=== PATIENT | male | born 1955 | race Caucasian/White ===

== ENCOUNTER 2016-08-04 15:17 | Inpatient (IN) | payer MEDICARE, SELFPAY ==
[2016-08-04] MEDS ORDERED: Albuterol/Ipratropium Neb 3 ML NEB NEB ONE ×2 (16:15→18:11)
[2016-08-04] MEDS ORDERED: METHYLPREDNISOLONE 125 MG/2 ML VIAL IV ONE (16:15)
--- NOTE | 2016-08-04 16:18 | EDPRACDOC ---
<Cass Hughes N - Last Filed: 08/04/16 21:06> - General Information Information Source: Patient Mode Of Arrival: Wheelchair - History of Present Illness HPI: C/o SOB, cough, and chest soreness x 4 days. Hx of COPD on home O2 @2 L. Denies fever, N/V/D, change in urine or BM. Shortness of Breath: Mild Relevant History: Reports: COPD Cough: Reports: Productive, White Rhinorrhea: Reports: None Ear Symptoms: Reports: None SOB Worsens with: Reports: Exertion SOB Improves with: Reports: Nothing Associated Signs and symptoms: Reports: Cough <Zachary Malik - Last Filed: 08/05/16 00:39> - General Information Chief Complaint: Dyspnea/Resp distress Stated Complaint: SHOB HX COPD SORENESS IN [place] Home Medications: Home Medications Atorvastatin Calcium [Lipitor] 10 mg PO DAILY 01/23/13 Lisinopril [Zestril] 20 mg PO DAILY 01/23/13 Alprazolam [Xanax] 0.5 mg PO BID PRN 07/07/14 Cholecalciferol (Vitamin D3) [Vitamin D3] 1,000 units PO DAILY 07/07/14 Oxycodone Immediate Release [Oxycodone Immediate Release (OxyIR)] 10 mg PO Q8H PRN 07/23/14 Tiotropium [Spiriva Handihaler] 18 mcg INH DAILY 07/23/14 Montelukast Sodium [Singulair] 10 mg PO DAILY 06/16/16 Prednisone [Deltasone, Orasone] 10 mg PO DAILY 06/16/16 Allergies/Adverse Reactions: Allergies Allergy/AdvReac Type Severity Reaction Status Date / Time No Known Allergies Allergy Verified 08/04/16 15:50 - Treatment Prior to ED Arrival Reported 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 MECHANIC (Medication/ oxycodone 10mg @ 1300 Dose/Time) <Cass Hughes - Last Filed: 08/04/16 21:06> - Treatment Prior to ED Arrival Reported 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 MECHANIC (Medication/ oxycodone 10mg @ 1300 Dose/Time) <Zachary Malik - Last Filed: 08/05/16 00:39> ED Past Medical History - History Reviewed Yes Nurses notes reviewed and agree except as marked - Patient Medical History Neurological History: Denies: Cerebrovascular Accident, Seizures, Migraine, Dementia Cardiac History: Reports: Hypertension, Hypercholesterolemia Respiratory History: Reports: COPD, Pneumonia, Emphysema GI/ History: Reports: Gastroesophageal Reflux Musculoskeletal History: Reports: Arthritis, Osteoarthritis Psychological History: Reports: Anxiety, Substance Use Disorder. Denies: Depression Systemic History: Denies: Cancer, Anemia, Diabetes, Hyperthyroidism, Hypothyroidism, HIV, Lupus Surgical History: Reports: Hernia Surgery (x3) - Family Medical History Reports: Cancer (grandmother), Cardiac Disorders (Father). Denies: Hypertension , Diabetes, Stroke - Social Medical History Smoking Status: Light tobacco smoker (less than 5/day) Social History: Reports: Substance Use Disorder <Zachary Malik - Last Filed: 08/05/16 00:39> EDM Review of Systems - Review of Systems ROS Negative Except as Marked: Yes All systems reviewed and were negative except as marked Respiratory: Cough, Shortness of Breath, Sputum Cardiovascular: Chest Pain <Zachayr Malik - Last Filed: 08/05/16 00:39> - Physical Exam Last recorded Vital Signs: Last Vital Signs Temp 99.6 F 08/04/16 15:50 Pulse 99 08/04/16 18:13 Resp 20 08/04/16 18:13 BP 95/58 L 08/04/16 18:13 Pulse Ox 94 08/04/16 18:13 Oxygen Pulse Oxygen Saturation 94 O2 Device Nasal Cannula Oxygen Flow Rate 2 Fraction of Inspired Oxygen ( FIO2) <Cass Hughes - Last Filed: 08/04/16 21:06> - Physical Exam Constitutional: Alert, Distress (working to breath, rapid shallow breaths) Oriented to: Time, Person, Place Last recorded Vital Signs: Last Vital Signs Temp 99.6 F 08/04/16 15:50 Pulse 134 H 08/04/16 15:50 Resp 24 08/04/16 15:50 BP 150/72 08/04/16 15:50 Pulse Ox 92 08/04/16 15:56 Oxygen Pulse Oxygen Saturation 92 O2 Device Nasal Cannula Oxygen Flow Rate 2 Fraction of Inspired Oxygen ( FIO2) - HEENT Head: Normal Eye Exam: negative: Conjunctival Injection, Scleral Icterus Oropharynx: negative: Drooling TMJ: Normal Nose: No Symptoms Reported Neck: Normal - Respiratory/Cardiovascular Respiratory: Rhonchi, Tachypnea, Wheezes (bilateral, very tight), Other (pursed lips breathing) Cardiovascular: Tachycardia - GI Tenderness: Non tender - Musculoskeletal Back: Normal Extremities: Normal - Integumentary Skin: Normal - Neurologic Mood Description: Normal Thought: Coherent <Zachary Malik - Last Filed: 08/05/16 00:39> ED SOB MDM - Results Result Diagrams: 08/04/16 17:05 08/04/16 17:05 Results: WBC 8.3 xk/uL (3.8-10.8) 08/04/16 17:05 RBC 4.19 xM/uL (4.70-6.10) L 08/04/16 17:05 Hgb 12.7 g/dL (14.0-18.0) L 08/04/16 17:05 Hct 38.2 % (42-52) L 08/04/16 17:05 MCV 91 fL (80-94) 08/04/16 17:05 MCH 30.4 pg (27-32) 08/04/16 17:05 MCHC 33.3 g/dl (33-36) 08/04/16 17:05 RDW 13.5 % (11.5-14.5) 08/04/16 17:05 Plt Count 171 xk/uL (130-400) 08/04/16 17:05 MPV 8.4 fL (7.4-10.4) 08/04/16 17:05 Neut % (Auto) 63.9 % (45-76) 08/04/16 17:05 Lymph % (Auto) 18.0 % (17-44) 08/04/16 17:05 Ray % (Auto) 16.4 % (3-10) H 08/04/16 17:05 Eos % (Auto) 1.1 % (0-5) 08/04/16 17:05 Baso % (Auto) 0.6 % (0-2) 08/04/16 17:05 Absolute Neuts (auto) 5.23 xk/uL (1.7-8.2) 08/04/16 17:05 Absolute Lymphs (auto) 1.49 xk/uL (0.65-4.75) 08/04/16 17:05 PT 10.0 SEC (9.2-11.2) 08/04/16 17:05 INR 1.0 08/04/16 17:05 APTT 31.9 SEC (22-35) 08/04/16 17:05 Puncture Site Right radial 08/04/16 17:55 pH 7.380 pH UNITS (7.35-7.45) 08/04/16 17:55 pCO2 53.0 mmHg (35-45) H 08/04/16 17:55 pO2 79.0 mmHg (80-100) L 08/04/16 17:55 HCO3 31.4 MMOL/L (22-26) H 08/04/16 17:55 Total CO2 33.0 MMOL/L (23-27) H 08/04/16 17:55 Base Excess 4.9 (+/- 2) H 08/04/16 17:55 FiO2 % 3.5 lpm nc 08/04/16 17:55 Specimen Drawn By Roude 08/04/16 17:55 Sodium 138 mEq/L (137-146) 08/04/16 17:05 Potassium 4.3 mEq/L (3.5-5.1) 08/04/16 17:05 Chloride 96 mEq/L (98-107) L 08/04/16 17:05 Carbon Dioxide 36 mMOL/L (22-33) H 08/04/16 17:05 Anion Gap 10 mEq/L (8-16) 08/04/16 17:05 BUN 16 MG/DL (9-20) 08/04/16 17:05 Creatinine 0.80 MG/DL (0.66-1.25) 08/04/16 17:05 Estimated GFR (MDRD) > 60 mL/min (>=60) 08/04/16 17:05 Glucose 107 MG/DL (70-99) H 08/04/16 17:05 Calculated Osmolality 267 MOs/Kg (270-290) L 08/04/16 17:05 Lactic Acid 1.7 mEq/L (0.7-2.1) 08/04/16 17:05 Calcium 8.6 MG/DL (8.4-10.2) 08/04/16 17:05 Corrected Calcium 9.3 MG/DL (8.4-10.2) 08/04/16 17:05 Total Bilirubin 0.5 MG/DL (0.2-1.3) 08/04/16 17:05 AST 17 IU/L (17-59) 08/04/16 17:05 ALT 26 IU/L (21-72) 08/04/16 17:05 Alkaline Phosphatase 80 IU/L (38-126) 08/04/16 17:05 Troponin I < 0.01 ng/mL (<.04) 08/04/16 17:05 Jmr-[id number]-Nvxsvlcaoec Pept 167 pg/mL (0-900) 08/04/16 17:13 Total Protein 5.8 G/DL (6.3-8.2) L 08/04/16 17:05 Albumin 3.3 G/DL (3.5-5.0) L 08/04/16 17:05 Urine Color Yellow 08/04/16 17:12 Urine Clarity Clear 08/04/16 17:12 Urine pH 6.0 (5.0-8.0) 08/04/16 17:12 Ur Specific [place] 1.030 (1.003-1.035) 08/04/16 17:12 Urine Protein Neg (NEG/TRACE) 08/04/16 17:12 Urine Glucose (UA) Neg (NEGATIVE) 08/04/16 17:12 Urine Ketones Neg (NEGATIVE) 08/04/16 17:12 Urine Occult Blood Neg (NEG/TRACE) 08/04/16 17:12 Urine Nitrite Neg (NEGATIVE) 08/04/16 17:12 Urine Bilirubin Neg (NEGATIVE) 08/04/16 17:12 Urine Urobilinogen <2.0 MG/DL (0-1) 08/04/16 17:12 Ur Leukocyte Esterase Neg (NEGATIVE) 08/04/16 17:12 Urine RBC 2-5 (0-2) H 08/04/16 17:12 Urine WBC 0-2 (0-2) 08/04/16 17:12 Urine Mucus Occ (NEG/OCC) 08/04/16 17:12 Microbiology 08/04/16 17:15 Influenza Type A Antigen Screen - Final Nasal Washing/Aspirate Or Swab NEGATIVE Please note: A NEGATIVE result does not exclude an influenza virus infection. It is a presumptive result and, if required, confirmation should be done using either a virus culture or an FDA-cleared influenza A&B molecular assay. ("NORMAL" value = "NEGATIVE".) Influenza Type B Antigen Screen - Final NEGATIVE Please note: A NEGATIVE result does not exclude an influenza virus infection. It is a presumptive result and, if required, confirmation should be done using either a virus culture or an FDA-cleared influenza A&B molecular assay. ("NORMAL" value = "NEGATIVE".) Lab Results 08/04/16 08/04/16 08/04/16 17:55 17:13 17:12 WBC RBC Hgb Hct MCV MCH MCHC RDW Plt Count MPV Neut % (Auto) Lymph % (Auto) Ray % (Auto) Eos % (Auto) Baso % (Auto) Absolute Neuts (auto) Absolute Lymphs (auto) PT INR APTT Puncture Site Right radial pH 7.380 pCO2 53.0 H pO2 79.0 L HCO3 31.4 H Total CO2 33.0 H Base Excess 4.9 H FiO2 % 3.5 lpm nc Specimen Drawn By Roude Sodium Potassium Chloride Carbon Dioxide Anion Gap BUN Creatinine Estimated GFR (MDRD) Glucose Calculated Osmolality Lactic Acid Calcium Corrected Calcium Total Bilirubin AST ALT Alkaline Phosphatase Troponin I Jak-[id number]-Qlztqebiyfa Pept 167 Total Protein Albumin Urine Color Yellow Urine Clarity Clear Urine pH 6.0 Ur Specific [place] 1.030 Urine Protein Neg Urine Glucose (UA) Neg Urine Ketones Neg Urine Occult Blood Neg Urine Nitrite Neg Urine Bilirubin Neg Urine Urobilinogen <2.0 Ur Leukocyte Esterase Neg Urine RBC 2-5 H Urine WBC 0-2 Urine Mucus Occ 08/04/16 08/04/16 08/04/16 17:05 17:05 17:05 WBC RBC Hgb Hct MCV MCH MCHC RDW Plt Count MPV Neut % (Auto) Lymph % (Auto) Ray % (Auto) Eos % (Auto) Baso % (Auto) Absolute Neuts (auto) Absolute Lymphs (auto) PT 10.0 INR 1.0 APTT 31.9 Puncture Site pH pCO2 pO2 HCO3 Total CO2 Base Excess FiO2 % Specimen Drawn By Sodium Potassium Chloride Carbon Dioxide Anion Gap BUN Creatinine Estimated GFR (MDRD) Glucose Calculated Osmolality Lactic Acid 1.7 Calcium Corrected Calcium Total Bilirubin AST ALT Alkaline Phosphatase Troponin I < 0.01 Rkl-P-Fniveplrufk Pept Total Protein Albumin Urine Color Urine Clarity Urine pH Ur Specific [place] Urine Protein Urine Glucose (UA) Urine Ketones Urine Occult Blood Urine Nitrite Urine Bilirubin Urine Urobilinogen Ur Leukocyte Esterase Urine RBC Urine WBC Urine Mucus 08/04/16 08/04/16 17:05 17:05 WBC 8.3 RBC 4.19 L Hgb 12.7 L Hct 38.2 L MCV 91 MCH 30.4 MCHC 33.3 RDW 13.5 Plt Count 171 MPV 8.4 Neut % (Auto) 63.9 Lymph % (Auto) 18.0 Ray % (Auto) 16.4 H Eos % (Auto) 1.1 Baso % (Auto) 0.6 Absolute Neuts (auto) 5.23 Absolute Lymphs (auto) 1.49 PT INR APTT Puncture Site pH pCO2 pO2 HCO3 Total CO2 Base Excess FiO2 % Specimen Drawn By Sodium 138 Potassium 4.3 Chloride 96 L Carbon Dioxide 36 H Anion Gap 10 BUN 16 Creatinine 0.80 Estimated GFR (MDRD) > 60 Glucose 107 H Calculated Osmolality 267 L Lactic Acid Calcium 8.6 Corrected Calcium 9.3 Total Bilirubin 0.5 AST 17 ALT 26 Alkaline Phosphatase 80 Troponin I Lpy-A-Xgahsjdojzl Pept Total Protein 5.8 L Albumin 3.3 L Urine Color Urine Clarity Urine pH Ur Specific [place] Urine Protein Urine Glucose (UA) Urine Ketones Urine Occult Blood Urine Nitrite Urine Bilirubin Urine Urobilinogen Ur Leukocyte Esterase Urine RBC Urine WBC Urine Mucus - Diagnostic Imaging Chest Diagnostic Imaging Comments: Patient Name: ONEIDA BANDA LOC: ED : 1955 AGE: 60 Order Date:08/04/16 Date of Service: Report # [id number] Ord Physician: Cass Hughes MD Exam # [id number] Emergency Physician: Cass Hughes MD Exam(s): [id number] CT/CT ANGIO CHEST CLINICAL DATA: 60-year-old male with chest pain and shortness of breath EXAM: CT ANGIOGRAPHY CHEST WITH CONTRAST TECHNIQUE: Multidetector CT imaging of the chest was performed using the standard protocol during bolus administration of intravenous contrast. Multiplanar CT image reconstructions and MIPs were obtained to evaluate the vascular anatomy. CONTRAST: 100 mL Isovue 370 administered intravenously COMPARISON: Prior chest x-ray 08/04/2016; prior chest CTs 03/09/2015 FINDINGS: Mediastinum: Unremarkable CT appearance of the thyroid gland. No suspicious mediastinal or hilar adenopathy. No soft tissue mediastinal mass. Small hiatal hernia. Heart/Vascular: Adequate opacification of the pulmonary arteries to proximal subsegmental level. No evidence of central filling defect to suggest acute pulmonary embolus. 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 Atherosclerotic plaque noted in the transverse aorta. No aneurysm or dissection. Calcifications also noted along the course of the coronary arteries. The heart is within normal limits for size. No pericardial effusion. Lungs/Pleura: No evidence of pleural effusion. Advanced centrilobular emphysema. No focal airspace consolidation, pleural effusion, pneumothorax or pulmonary edema. Diffuse mild bronchial wall thickening. Scattered calcified granulomas. Bones/Soft Tissues: No acute fracture or aggressive appearing lytic or blastic osseous lesion. Upper Abdomen: Visualized upper abdominal organs are unremarkable. Review of the MIP images confirms the above findings. IMPRESSION: 1. Negative for acute pulmonary embolus, pneumonia or other acute cardiopulmonary process. 2. Advanced centrilobular emphysema and chronic bronchitic changes. 3. Scattered calcified granulomas. 4. 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 5. Small hiatal hernia. Electronically Signed By: Andrea Smith M.D. On: 08/04/2016 20:31 Electronically Signed By: Andrea Smith MD Electronically Signed Date/Time: Dictate Date/Time: 08/04/162025 Technologist: Elvira Olvera Transcribed By: Judson Transcribed Date/Time: 08/04/162030 <Cass Hughes - Last Filed: 08/04/16 21:06> - Re-evaluation Re-evaluation 1 Re-evaluation Time: 19:26 (pt VSS. couldnt lie down for CTA, unsure whether from back pain or SOB. ) - Results Result Diagrams: 08/04/16 17:05 08/04/16 17:05 - EKG EKG #1 EKG Time: 16:37 -: Yes EKG interpreted by me Rate: bpm: 114 [place]: RAD Rhythm: ST Block: None Hypertrophy: None ST: Normal - Diagnostic Imaging Chest Image interpreted by: Radiologist Diagnostic Imaging Comments: EXAM: CHEST 2 VIEW COMPARISON: 06/16/2016 FINDINGS: COPD. Pulmonary hyperinflation. Calcified granulomata bilaterally are chronic Negative for pneumonia. Negative for heart failure or mass. No pleural effusion IMPRESSION: COPD without acute cardiopulmonary abnormality. Electronically Signed By: Leonardo Barrientos M.D. On: 08/04/2016 17:10 Other Image interpreted by: Radiologist Diagnostic Imaging Comments: EXAM: CT ANGIOGRAPHY CHEST WITH CONTRAST TECHNIQUE: Multidetector CT imaging of the chest was performed using the standard protocol during bolus administration of intravenous contrast. Multiplanar CT image reconstructions and MIPs were obtained to evaluate the vascular anatomy. CONTRAST: 100 mL Isovue 370 administered intravenously COMPARISON: Prior chest x-ray 08/04/2016; prior chest CTs 03/09/2015 FINDINGS: Mediastinum: Unremarkable CT appearance of the thyroid gland. No suspicious mediastinal or hilar adenopathy. No soft tissue mediastinal mass. Small hiatal hernia. Heart/Vascular: Adequate opacification of the pulmonary arteries to proximal subsegmental level. No evidence of central filling defect to suggest acute pulmonary embolus. 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 Atherosclerotic plaque noted in the transverse aorta. No aneurysm or dissection. Calcifications also noted along the course of the coronary arteries. The heart is within normal limits for size. No pericardial effusion. Lungs/Pleura: No evidence of pleural effusion. Advanced centrilobular emphysema. No focal airspace consolidation, pleural effusion, pneumothorax or pulmonary edema. Diffuse mild bronchial wall thickening. Scattered calcified granulomas. Bones/Soft Tissues: No acute fracture or aggressive appearing lytic or blastic osseous lesion. Upper Abdomen: Visualized upper abdominal organs are unremarkable. Review of the MIP images confirms the above findings. IMPRESSION: 1. Negative for acute pulmonary embolus, pneumonia or other acute cardiopulmonary process. 2. Advanced centrilobular emphysema and chronic bronchitic changes. 3. Scattered calcified granulomas. 4. 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 5. Small hiatal hernia. Electronically Signed By: Andrea Smith M.D. On: 08/04/2016 20:31 - Additional Information Additional Information: Pt had 1 episode of rapid BP drop to SBP 84, managed with 2 L NS. Pt had repeat rapid sudden O2 drops with rapid labored pursed lip breathing where sats dropped from 93-94% to 87-88%. Pt on home O2 @ 2L, and had to be increased to 3.5L to maintain O2 above 90%. Pt given 2 duonebs, and could not lie down to do CTA without a third. Pt had labored breathing with any exertion. Pt has repeated coughing with sputum production. States that this had been going on for 4 days, that he couldn't even get out of bed. Pt has to sit up, cannot angle bed back due to increased work of breathing. <Zachary Malik - Last Filed: 08/05/16 00:39> ED Critical Care Note - Critical Care Note Total Time (mins): 35 Comments: Due to the presence of and / or the risk of deterioration, my attendance to this patient required critical care time, including assessment/reassessment, documentation, ordering and interpreting ancillary studies, discussion with ED staff and consultants,patient and family, and excludes time spent on separately billable procedures. <Cass Hughes - Last Filed: 08/04/16 21:06> - Departure Yes I personally saw and evaluated the patient. Education/Counseling Given To: Patient Education/Counseling Given Regarding: Diagnosis, Treatment, Prognosis Decision to Admit Time: 21:10 Decision to admit date: 08/04/16 Decision to admit: from ED - Physician Consulted Hospitalist Time Called: 21:10 Provider Called: Jacquelin Ding Time Occupational Health Specialist Returned Call: 21:10 <Cass Hughes - Last Filed: 08/04/16 21:06> - Departure Disposition: Admit IP To This Hospital <Zachary Malik - Last Filed: 08/05/16 00:39> - Departure Condition: Stable Final Diagnosis: COPD (chronic obstructive pulmonary disease) with acute bronchitis, Acute respiratory failure with hypoxia and hypercarbia
[2016-08-04] MEDS ORDERED: NS 1,000 ML IV ONE ×2 (17:07→18:32)
--- NOTE | 2016-08-04 17:13 | DIRPT ---
CLINICAL DATA: Short of breath EXAM: CHEST 2 VIEW COMPARISON: 06/16/2016 FINDINGS: COPD. Pulmonary hyperinflation. Calcified granulomata bilaterally are chronic Negative for pneumonia. Negative for heart failure or mass. No pleural effusion IMPRESSION: COPD without acute cardiopulmonary abnormality. Electronically Signed By: Leonardo Barrientos M.D. On: 08/04/2016 17:10
[2016-08-04 17:32] LABS: AUTOMATED BASOPHIL 0.6 % (0-2); AUTOMATED EOSINOPHIL 1.1 % (0-5); AUTOMATED MONOCYTE 16.4 % (3-10); AUTOMATED NEUTROPHIL 63.9 % (45-76); BLOOD UREA NITROGEN 16 MG/DL (9-20); CALC CORRECTED 9.3 MG/DL (8.4-10.2); CALCIUM 8.6 MG/DL (8.4-10.2); CALCULATED OSMOLALITY 267 MOs/Kg (270-290); CHLORIDE 96 mEq/L (98-107); GLUCOSE 107 MG/DL (70-99); MPV 8.4 fL (7.4-10.4); SODIUM LEVEL 138 mEq/L (137-146); TOTAL PROTEIN 5.8 G/DL (6.3-8.2)
[2016-08-04 17:35] LABS: LEUKOCYTES/URINE NEG (NEGATIVE); NITRITE/URINE NEG (NEGATIVE); URINE OCCULT BLOOD NEG (NEG/TRACE); WBC/URINE 0-2 (0-2)
[2016-08-04 17:38] LABS: PARTIAL THROMB. TIME 31.9 SEC (22-35)
[2016-08-04 18:02] LABS: ABG Draw Site Right Radial; ALLEN'S TEST PASS; BEb 4.9 (+/- 2)
[2016-08-04] MEDS ORDERED: OXYCODONE HCL 5 MG TABLET PO ONE ×2 (18:50→19:23)
[2016-08-04] MEDS ORDERED: Pharmacy Review for Metformin - IV Contrast Given SCH (19:00)
[2016-08-04] MEDS ORDERED: ALBUTEROL 0.083% 3 ML NEB NEB ONE (19:13)
--- NOTE | 2016-08-04 20:33 | DIRPT ---
CLINICAL DATA: 60-year-old male with chest pain and shortness of breath EXAM: CT ANGIOGRAPHY CHEST WITH CONTRAST TECHNIQUE: Multidetector CT imaging of the chest was performed using the standard protocol during bolus administration of intravenous contrast. Multiplanar CT image reconstructions and MIPs were obtained to evaluate the vascular anatomy. CONTRAST: 100 mL Isovue 370 administered intravenously COMPARISON: Prior chest x-ray 08/04/2016; prior chest CTs 03/09/2015 FINDINGS: Mediastinum: Unremarkable CT appearance of the thyroid gland. No suspicious mediastinal or hilar adenopathy. No soft tissue mediastinal mass. Small hiatal hernia. Heart/Vascular: Adequate opacification of the pulmonary arteries to proximal subsegmental level. No evidence of central filling defect to suggest acute pulmonary embolus. 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 Atherosclerotic plaque noted in the transverse aorta. No aneurysm or dissection. Calcifications also noted along the course of the coronary arteries. The heart is within normal limits for size. No pericardial effusion. Lungs/Pleura: No evidence of pleural effusion. Advanced centrilobular emphysema. No focal airspace consolidation, pleural effusion, pneumothorax or pulmonary edema. Diffuse mild bronchial wall thickening. Scattered calcified granulomas. Bones/Soft Tissues: No acute fracture or aggressive appearing lytic or blastic osseous lesion. Upper Abdomen: Visualized upper abdominal organs are unremarkable. Review of the MIP images confirms the above findings. IMPRESSION: 1. Negative for acute pulmonary embolus, pneumonia or other acute cardiopulmonary process. 2. Advanced centrilobular emphysema and chronic bronchitic changes. 3. Scattered calcified granulomas. 4. 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 5. Small hiatal hernia. Electronically Signed By: Andrea Smith M.D. On: 08/04/2016 20:31
[2016-08-04] MEDS ORDERED: TEMAZEPAM 15 MG CAP PO PRN (21:22)
[2016-08-04] MEDS ORDERED: SIMETHICONE 80 MG TAB PO PRN (21:22)
[2016-08-04] MEDS ORDERED: ONDANSETRON HCL 4 MG/2 ML VIAL IV PRN (21:22)
[2016-08-04] MEDS ORDERED: ACETAMINOPHEN 650 MG SUPP PR PRN (21:22)
[2016-08-04] MEDS ORDERED: DOCUSATE-SENNA CONCENTRATE TAB PO PRN (21:22)
[2016-08-04] MEDS ORDERED: SODIUM CHLORIDE 0.9% 3 ML FLUSH FLUSH PRN (21:27)
[2016-08-04] MEDS: NS 1,000 ML IV SCH (22:55)
[2016-08-04] MEDS: NICOTINE 21 MG PATCH TOP SCH (22:56)
[2016-08-05] MEDS ORDERED: Vaccine Screening Complete SCH (01:00)
[2016-08-05] MEDS: Albuterol/Ipratropium Neb 3 ML NEB NEB SCH ×4 (01:07→19:16)
[2016-08-05] MEDS: SODIUM CHLORIDE 0.9% 3 ML FLUSH FLUSH SCH ×2 (04:03→17:24)
[2016-08-05] MEDS: OXYCODONE HCL 5 MG TABLET PO PRN ×3 (05:39→22:04)
[2016-08-05 07:15] LABS: MPV 8.2 fL (7.4-10.4)
[2016-08-05 07:34] LABS: BLOOD UREA NITROGEN 15 MG/DL (9-20); CALCIUM 8.1 MG/DL (8.4-10.2); CALCULATED OSMOLALITY 275 MOs/Kg (270-290); CHLORIDE 103 mEq/L (98-107); GLUCOSE 204 MG/DL (70-99); SODIUM LEVEL 139 mEq/L (137-146)
--- NOTE | 2016-08-05 08:29 | HISTPHYS ---
History and Physical - Chief Complaint short of breath - History of Present Illness Mr Chris Varela is a 60 year old disabled man who has severe emphysema. He quit smoking about two months ago, but previously had smoked for about 42 years. He presents tonight to the ED with progressively worsening shortness of breath. He wears oxygen at 2L/min by nasal cannula at home, but was hypoxic upon arrival to the ED. - Medical History Cardiac History: Reports: Hypertension, Hypercholesterolemia Respiratory History: Reports: COPD, Pneumonia, Emphysema GI/ History: Reports: Gastroesophageal Reflux Musculoskeletal History: Reports: Arthritis, Osteoarthritis Systemic History: Denies: Cancer, Anemia, Diabetes, Hyperthyroidism, Hypothyroidism, HIV, Lupus Neurological History: Denies: Cerebrovascular Accident, Seizures, Migraine, Dementia Psychological History: Reports: Anxiety, Substance Use Disorder. Denies: Depression - Surgical History Reports: Hernia Surgery (x3) - Medictions/Allergies Allergies No Known Allergies Allergy (Verified 08/04/16 15:50) Home Medications Atorvastatin Calcium [Lipitor] 10 mg PO DAILY 01/23/13 Lisinopril [Zestril] 20 mg PO DAILY 01/23/13 Alprazolam [Xanax] 0.5 mg PO BID PRN 07/07/14 Cholecalciferol (Vitamin D3) [Vitamin D3] 1,000 units PO DAILY 07/07/14 Oxycodone Immediate Release [Oxycodone Immediate Release (OxyIR)] 10 mg PO Q8H PRN 07/23/14 Tiotropium [Spiriva Handihaler] 18 mcg INH DAILY 07/23/14 Montelukast Sodium [Singulair] 10 mg PO DAILY 06/16/16 Prednisone [Deltasone, Orasone] 10 mg PO DAILY 06/16/16 - Family History Reports: Cancer (grandmother), Cardiac Disorders (Father). Denies: Hypertension , Diabetes, Stroke - Social History Lives: Alone Smoking Status: Former smoker Social History: Denies: Alcohol Use, Substance Use Disorder - Review of Systems Constitutional: Chills, Fever, Fatigue, Weakness Eyes: No Symptoms Reported Ears: Hearing Loss Nose: No Symptoms Reported Mouth: Dry Mouth, Poor Dentition Throat/Neck: No Symptoms Reported Respiratory: Cough, Shortness of Breath, Wheezing, Bronchitis, Dyspnea Cardiovascular: Chest Pain, Orthopnea, Palpitations Gastrointestinal: Nausea, Constipation, Appetite Changes (decreased) Genitourinary: No Symptoms Reported Neurological: Dizziness, Gait Difficulty, Headache, Weakness Musculoskeletal:: Chronic low back pain, Osteoarthritis, Weakness, Joint Pain Integumentary: No Symptoms Reported Allergic/Immunologic: No Symptoms Reported Hematologic: No Symptoms Reported Endocrine: No Symptoms Reported Psychiatric: Anxiety, Depression - Physical Exam Vital Signs: Initial Vitals Temperature 99.6 F 08/04/16 15:50 Pulse Rate 134 H 08/04/16 15:50 Respiratory Rate 24 08/04/16 15:50 Blood Pressure 150/72 08/04/16 15:50 Pulse Oxygen Saturation 83 L 08/04/16 15:50 Constitutional: No apparent distress, Alert, Distress (respiratory distress), Restless, Other (chronically ill appearing) - HEENT Head: Normal Eye: Normal (PERRL; EOMI) Oropharynx: Normal Tympanic Membrane: Normal ENT EAC: Normal TMJ: Normal Nose: No Symptoms Reported. negative: Bleeding, Congestion, Discharge, Deformity Respiratory: Diminished, Retractions, Wheezes. negative: Rales, Rhonchi Cardiovascular: Normal (REGULAR RHYTHM AND RATE, NO MURMUR) - GI Auscultation: Normal Palpation: Normal. negative: Enlarged liver, Enlarged spleen, Fluid Wave, Mass Tenderness: Non tender Ernst's Sign: Negative Rectal Exam: Deferred - Musculoskeletal Back: Normal, Other (DORSAL KYPHOSIS) Extremities: Clubbing, Pedal Pulse (NORMAL), Radial Pulse (NORMAL). negative: Cyanosis, Edema Spine: normal alignment, normal inspection - Integumentary Skin: Warm, Dry Lymphatics: Normal - Neurologic Memory Impaired: Normal Motor Function: Normal Cranial Nerve: Normal Cerebellar: Normal Mood Description: Normal Thought: Coherent Perception: Normal - Focused CV Perfusion Exam Vital Signs: Last Vital Signs Temp 99.6 F 08/04/16 15:50 Pulse 119 08/04/16 20:18 Resp 30 H 08/04/16 20:18 BP 90/59 L 08/04/16 21:48 Pulse Ox 86 L 08/04/16 20:18 - Lab Results Laboratory Tests 08/04/16 08/04/16 08/04/16 17:05 17:05 17:05 WBC 8.3 Hgb 12.7 L Hct 38.2 L Plt Count 171 Neut % (Auto) 63.9 Lymph % (Auto) 18.0 [place] % (Auto) 16.4 H PT INR APTT Puncture Site pH pCO2 pO2 HCO3 Total CO2 Base Excess FiO2 % Sodium 138 Potassium 4.3 Chloride 96 L Carbon Dioxide 36 H Anion Gap 10 BUN 16 Creatinine 0.80 Estimated GFR (MDRD) > 60 Glucose 107 H Calculated Osmolality 267 L Lactic Acid Corrected Calcium 9.3 Troponin I < 0.01 Urine Color Urine Clarity Urine pH Ur Specific [place] Urine Protein Urine Glucose (UA) Urine Ketones Urine Nitrite Urine RBC Urine WBC 08/04/16 08/04/16 08/04/16 17:05 17:05 17:12 WBC Hgb Hct Plt Count Neut % (Auto) Lymph % (Auto) [place] % (Auto) PT 10.0 INR 1.0 APTT 31.9 Puncture Site pH pCO2 pO2 HCO3 Total CO2 Base Excess FiO2 % Sodium Potassium Chloride Carbon Dioxide Anion Gap BUN Creatinine Estimated GFR (MDRD) Glucose Calculated Osmolality Lactic Acid 1.7 Corrected Calcium Troponin I Urine Color Yellow Urine Clarity Clear Urine pH 6.0 Ur Specific [place] 1.030 Urine Protein Neg Urine Glucose (UA) Neg Urine Ketones Neg Urine Nitrite Neg Urine RBC 2-5 H Urine WBC 0-2 08/04/16 17:55 WBC Hgb Hct Plt Count Neut % (Auto) Lymph % (Auto) [place] % (Auto) PT INR APTT Puncture Site Right radial pH 7.380 pCO2 53.0 H pO2 79.0 L HCO3 31.4 H Total CO2 33.0 H Base Excess 4.9 H FiO2 % 3.5 lpm nc Sodium Potassium Chloride Carbon Dioxide Anion Gap BUN Creatinine Estimated GFR (MDRD) Glucose Calculated Osmolality Lactic Acid Corrected Calcium Troponin I Urine Color Urine Clarity Urine pH Ur Specific [place] Urine Protein Urine Glucose (UA) Urine Ketones Urine Nitrite Urine RBC Urine WBC - Diagnostic Findings CXR: IMPRESSION: COPD without acute cardiopulmonary abnormality. Electronically Signed By: Leonardo Barrientos M.D. On: 08/04/2016 17:10 CTA CHEST:IMPRESSION: 1. Negative for acute pulmonary embolus, pneumonia or other acute cardiopulmonary process. 2. Advanced centrilobular emphysema and chronic bronchitic changes. 3. Scattered calcified granulomas. 4. 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 5. Small hiatal hernia. Electronically Signed By: Anrdea Smith M.D. On: 08/04/2016 20:31 - Assessment (1) Acute exacerbation of chronic obstructive airways disease J44.1 - CHRONIC OBSTRUCTIVE PULMONARY DISEASE W (ACUTE) EXACERBATION Acute Present on Admission: Yes Admit. Provide adequate oxygenation. Follow ABG, O2 sats. Begin nebulized bronchodilators and IV steroids. Add IV antibiotics. (2) Acute respiratory failure with hypoxia and hypercarbia J96.01 - ACUTE RESPIRATORY FAILURE WITH HYPOXIA; J96.02 - ACUTE RESPIRATORY FAILURE WITH HYPERCAPNIA Acute Present on Admission: Yes No evidence of PE, will begin pulmonary toilet, monitor O2 sats, CXR & ABG as needed (3) COPD (chronic obstructive pulmonary disease) with acute bronchitis J44.0 - CHRONIC OBSTRUCTIVE PULMON DISEASE W ACUTE LOWER RESP INFCT Acute Present on Admission: Yes begin pulmonary toilet, monitor O2 sats, CXR & ABG as needed (4) Occlusion of left subclavian artery I74.8 - EMBOLISM AND THROMBOSIS OF OTHER ARTERIES Chronic Present on Admission: Yes PATIENT REPORTS THAT LEFT HAND AND ARM GO NUMB AT TIMES. CTA SHWS OCCLUSION OF LEFT SUBCLAVIAN ARTERY, BUT COLLATERAL CIRCULATION FEEDS BRACHIAL ARTERY ON LEFT. (5) Anxiety F41.9 - ANXIETY DISORDER, UNSPECIFIED Chronic Present on Admission: Yes Continue home medications (6) DDD (degenerative disc disease), lumbosacral M51.37 - OTHER INTERVERTEBRAL DISC DEGENERATION, LUMBOSACRAL REGION Chronic Present on Admission: Yes Back pain under control (7) Hypertension I10 - ESSENTIAL (PRIMARY) HYPERTENSION Chronic Present on Admission: Yes Qualifiers: Hypertension type: essential hypertension Qualified Code(s): I10 - Essential (primary) hypertension Continue medications Case Care Discussed with: Patient, Nursing Staff Critical Care: No Couseling Time (>50% in counseling/coordination): No Code: 36556 <Electronically signed by Jacquelin Ding MD> 08/05/16 0[facility]
[2016-08-05] MEDS: LISINOPRIL 20 MG TAB PO SCH (09:07)
[2016-08-05] MEDS: ATORVASTATIN 10 MG TAB PO SCH (09:07)
[2016-08-05] MEDS: MONTELUKAST SODIUM 10 MG TAB PO SCH (09:07)
[2016-08-05] MEDS: NS 1,000 ML IV SCH ×2 (09:34→20:30)
[2016-08-05] MEDS: Albuterol/Ipratropium Neb 3 ML NEB NEB PRN (11:48)
[2016-08-05] MEDS: METHYLPREDNISOLONE 125 MG/2 ML VIAL IV SCH ×2 (13:42→20:30)
[2016-08-05] MEDS: CEFTRIAXONE 1 GM in D5W 100 ML IV SCH (13:45)
--- NOTE | 2016-08-05 15:05 | HIMCONS ---
DATE OF CONSULT: REQUESTING PHYSICIAN: Angela Raman MD REASON FOR CONSULTATION: Respiratory failure. HISTORY OF PRESENT ILLNESS: The patient is a 60-year-old male, well known to me from previous office and hospital visits. The patient has been a smoker for most of his adult life, but last cigarette he smoked was about 2 months ago. He has been smoking since the age of 18. Apparently, the patient has not been feeling well for a day or so prior to his admission with shortness of breath, weakness, tightness in his chest, wheezing, and coughing up phlegm. Denies any hemoptysis, hematemesis, hematochezia, or melena. Has been having anxiety because of his dyspnea has never been that worse. PAST MEDICAL HISTORY: Significant for hypertension, hypercholesterolemia, COPD, history of gastroesophageal reflux disease, history of osteoarthritis, anxiety, and substance use disorder. PAST SURGICAL HISTORY: Significant for hernia surgery x3. ALLERGIES: THE PATIENT HAS NO KNOWN DRUG ALLERGIES. MEDICATIONS: In the chart were noted. FAMILY HISTORY: Father has cardiac disorder. SOCIAL HISTORY: The patient has been a smoker most of his adult life. Smoked for about 42 years before quitting couple months ago. No history of alcohol or drug abuse. REVIEW OF SYSTEMS: Entire review of systems is negative except for as mentioned in the history of present illness. The complains chills and has had occasional fevers; however, they were below 100 degrees. Denies any chest pains at this time. EXAMINATION: VITAL SIGNS: Temperature is 97.9 degrees Fahrenheit, pulse is 95, respiratory rate 19, blood pressure 166/77, pulse ox 100% on 2 liters nasal cannula. CHEST: Diffuse bilateral wheezing. HEART: S1, S2. Regular. The patient is tachycardic. EXTREMITIES: No clubbing, cyanosis, or edema. ABDOMEN: Soft and nontender. Bowel sounds present. Hepatosplenomegaly is absent. NEURO: Grossly nonfocal. The patient is moving all extremities. LABORATORY DATA: White count 4.7, hemoglobin 7.7, hematocrit 34.4, platelets are 172. PT and INR within normal limits. Blood gas on admission; pH was 7.38, pCO2 of 53, pO2 of 79 on 3.5 liters oxygen. Sodium 139, potassium 4.5, chloride 103, CO2 is 29, BUN 15, creatinine 0.7, glucose is 204. LFTs were within normal limits. Albumin was 3.3. IMAGING REPORTS: CAT scan of chest was seen personally. The patient shows some calcified granuloma and hyperinflated lung schultz were noted on the chest x-ray. IMPRESSION: 1. [id number] respiratory failure. 2. Chronic obstructive pulmonary disease with exacerbation. 3. Calcified granuloma on the CT scan, anxiety, and multiple medical issues. PLAN: The patient has been on nebulizers and Singulair. I would start the patient on Solu-Medrol 60 mg IV q.6 hours along with Rocephin and Zithromax antibiotics and continue supportive care on this patient. Get a chest x-ray and blood gas in the morning. I told the patient that he should be getting better hopefully within next 2-3 days. Thank you very much for the consultation and I will follow the patient with you. [id number]
--- NOTE | 2016-08-05 15:53 | GENMEDPROG ---
Chief Complaint: Patient feeling somewhat better. Subjective Note: 60-year-old gentleman admitted with long history of CHRONIC OBSTRUCTIVE PULMONARY DISEASE presents with same. He is a longstanding patient of Dr. Mccormick and I have consulted him. Patient states he was better he was able to take this nebs on his own personal schedule. Notes Reviewed: Yes Events from last night noted and discussed with Clinical Staff Current Medication List: Reviewed Currently: Reports: Cough, SOB, Tobacco Use/Hx (Former). Denies: Sputum DVT Prophylaxis: Yes - Physical Examination Vital Signs and I&O: Last Vital Signs Temp 97.8 F 08/05/16 14:41 Pulse 95 08/05/16 14:41 Resp 19 08/05/16 14:41 BP 97/74 L 08/05/16 14:41 Pulse Ox 99 08/05/16 14:41 Oxygen Pulse Oxygen Saturation 99 O2 Device Nasal Cannula Oxygen Flow Rate 2 Fraction of Inspired Oxygen ( FIO2) Intake & Output 08/02/16 08/03/16 08/04/16 08/05/16 23:59 23:59 23:59 23:59 Intake Total 2000 977 Output Total 600 1200 Balance 1400 -223 Patient's weight 57.72 kg 59.109 kg General: Alert, Oriented x3, No acute distress, Well appearing, Well nourished HEENT: Normal (Normocephalic, atraumatic;EOMI.Sclera white, Nares patent, without discharge or bleeding. No oropharyngeal lesions or erythema. Mucous membranes are dry.) Neck: Non-tender, Full range of motion, Normal Trachea alignment, Normal inspection (No cervical lymphadenopathy. No supraclavicular lymphadenopathy.), No Masses palpable, Supple Lymphatics: Normal (No lymph node swelling or pain.) Respiratory: Rhonchi, Wheezes (bilateral, very tight) Cardiovascular: Regular rate and rhythm (No bradycardia or tachycardia), Normal S1, No Gallops,Rubs/Murmurs, Normal S2, Good Pedal Pulses (DP pulses 2+ bilaterally) GI: Normal bowel sounds (normal active sounds), Soft (non-distended), Non tender , No hepatospenomegaly, No masses Extremities/Musculoskeletal: Normal pulses (DP pulses 2+ bilaterally) Skin: Warm,Dry and Intact, No rashes, No significant lesion Neurological: Strength at 5/5 X4 ext (Motor 5/5 throughout.), Normal tone, Cranial nerves 3-12 NL ( 2-12 grossly intact.) Psych/Mental Status: Appropriate, Normal Affect Lab/DI/Studies Reviewed: Abnormal Lab Results 08/04/16 08/04/16 08/04/16 17:05 17:05 17:12 RBC 4.19 L Hgb 12.7 L Hct 38.2 L [place] % (Auto) 16.4 H pCO2 pO2 HCO3 Total CO2 Base Excess Chloride 96 L Carbon Dioxide 36 H Glucose 107 H Calculated Osmolality 267 L Calcium Total Protein 5.8 L Albumin 3.3 L Urine RBC 2-5 H 08/04/16 08/05/16 08/05/16 17:55 06:18 06:18 RBC 3.78 L Hgb 11.7 L Hct 34.4 L [place] % (Auto) pCO2 53.0 H pO2 79.0 L HCO3 31.4 H Total CO2 33.0 H Base Excess 4.9 H Chloride Carbon Dioxide Glucose 204 H Calculated Osmolality Calcium 8.1 L Total Protein Albumin Urine RBC - Assessment (1) Acute exacerbation of chronic obstructive airways disease Acute J44.1 - CHRONIC OBSTRUCTIVE PULMONARY DISEASE W (ACUTE) EXACERBATION Comment/Plan: 08/05/2016: Continue nebulized bronchodilators and IV steroids as well as antibiotics. Dr. Mccormick has been consulted. Admission: Admit. Provide adequate oxygenation. Follow ABG, O2 sats. Begin nebulized bronchodilators and IV steroids. Add IV antibiotics. (2) Acute respiratory failure with hypoxia and hypercarbia Acute J96.01 - ACUTE RESPIRATORY FAILURE WITH HYPOXIA; J96.02 - ACUTE RESPIRATORY FAILURE WITH HYPERCAPNIA Comment/Plan: 08/05/2016 continue present care. Admission: No evidence of PE, will begin pulmonary toilet, monitor O2 sats, CXR & ABG as needed (3) COPD (chronic obstructive pulmonary disease) with acute bronchitis Acute J44.0 - CHRONIC OBSTRUCTIVE PULMON DISEASE W ACUTE LOWER RESP INFCT Comment/Plan: 08/05/2016: Continue pulmonary toilet oxygenation and recheck chest x-ray in a.m.. 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 Admission: PATIENT REPORTS THAT LEFT HAND AND ARM GO NUMB AT TIMES. CTA SHWS OCCLUSION OF LEFT SUBCLAVIAN ARTERY, BUT COLLATERAL CIRCULATION FEEDS BRACHIAL ARTERY ON LEFT. (5) Anxiety Chronic F41.9 - ANXIETY DISORDER, UNSPECIFIED Comment/Plan: Continue home medications (6) DDD (degenerative disc disease), lumbosacral Chronic M51.37 - OTHER INTERVERTEBRAL DISC DEGENERATION, LUMBOSACRAL REGION Comment/Plan: Back pain under control (7) Hypertension Chronic I10 - ESSENTIAL (PRIMARY) HYPERTENSION Qualifiers: Hypertension type: essential hypertension Qualified Code(s): I10 - Essential (primary) hypertension Comment/Plan: Continue medications - Plan Continue present care Disposition Plan: Likely home when exacerbation improved Case Care Discussed with: Patient, Nursing Staff Education/Counseling Given To: Patient Education/Counseling Given Regarding: Diagnosis, Treatment, Prognosis Total Time: 45 minutes Critical Care: No Couseling Time (>50% in counseling/coordination): No
[2016-08-05] MEDS: NICOTINE 21 MG PATCH TOP SCH (23:19)
[2016-08-06] MEDS: METHYLPREDNISOLONE 125 MG/2 ML VIAL IV SCH ×4 (01:12→20:33)
[2016-08-06] MEDS: Albuterol/Ipratropium Neb 3 ML NEB NEB SCH ×4 (01:20→19:55)
[2016-08-06 04:10] LABS: ALLEN'S TEST PASS; BEb 5.7 (+/- 2); TCO2 33.7 MMOL/L (23-27)
[2016-08-06 04:11] LABS: ABG Draw Site Right Radial; ABG Draw Tech BKL
[2016-08-06] MEDS: SODIUM CHLORIDE 0.9% 3 ML FLUSH FLUSH SCH ×2 (04:25→16:53)
[2016-08-06] MEDS: OXYCODONE HCL 5 MG TABLET PO PRN ×2 (06:47→15:42)
--- NOTE | 2016-08-06 07:30 | DIRPT ---
CLINICAL DATA: Respiratory failure. EXAM: PORTABLE CHEST 1 VIEW COMPARISON: CT 08/04/2016. Chest x-ray 08/04/2016. FINDINGS: Mediastinum hilar structures normal. Lungs are clear of acute infiltrates. Calcified pulmonary nodules noted consistent granulomas. COPD. Heart size stable. No pleural effusion or pneumothorax. IMPRESSION: COPD. No acute cardiopulmonary disease. Stable chest. Electronically Signed By: Angel Montaño On: 08/06/2016 07:27
[2016-08-06] MEDS ORDERED: FLU VACCINE (Afluria) 0.5 ML DOSE IM ONE (08:00)
--- NOTE | 2016-08-06 08:09 | PCM.PULM ---
Chief Complaint: Respiratory failure acute on chronic with hypoxia and hypercapnia COPD exacerbation Anxiety Tobacco abuse Uneventful overnight Patient in bed alert and responsive. He has a c/o dyspnea, BUSCH,cough,wheeze. No chest pain reported Medication list reviewed:yes Notes reviewed:yes, Events from last night noted and discussed with Clinical Staff DVT prophylaxis:yes - Physical Examination Vital Signs and I&O: Last Vital Signs Temp 98.9 F 08/06/16 06:00 Pulse 105 08/06/16 06:00 Resp 19 08/06/16 06:00 BP 168/82 08/06/16 06:00 Pulse Ox 95 08/06/16 07:18 Oxygen Pulse Oxygen Saturation 95 O2 Device Nasal Cannula Oxygen Flow Rate 2 Fraction of Inspired Oxygen ( FIO2) Intake & Output 08/03/16 08/04/16 08/05/16 08/06/16 23:59 23:59 23:59 23:59 Intake Total 19994 1122 Output Total 600 1750 1225 Balance 1400 794 -103 Patient's weight 57.72 kg 59.109 kg 59.534 kg General: Alert, Oriented x3, Cooperative, No acute distress, Weakness, Fatigue Respiratory: Diminished, Wheezes (Scattered bilateral) Cardiovascular: Regular rate, Regular rate and rhythm, Normal S1, No Gallops, Rubs/Murmurs, Normal S2 GI: Normal bowel sounds, Soft, Non tender, No hepatospenomegaly, No masses Extremities/Musculoskeletal: Normal pulses Skin: Warm,Dry and Intact, No rashes, No breakdown, No significant lesion Neurological: Normal Steady Gait, Normal speech, Strength at 5/5 X4 ext, Normal tone, Cranial nerves 3-12 NL Psych/Mental Status: Appropriate, Anxious Result Diagrams: 08/05/16 06:18 08/05/16 06:18 Labs (last 24 hours): Laboratory Results - last 24 hr 08/06/16 04:05 Puncture Site Right radial pH 7.390 pCO2 53.0 H pO2 80.0 HCO3 32.1 H Total CO2 33.7 H Base Excess 5.7 H FiO2 % 2 lpm Specimen Drawn By Bkl Lab/DI/Studies Reviewed: Microbiology: 08/04/16 17:20 Blood Blood Culture - Preliminary No growth aerobically or anaerobically at 24-48 hours. NORMAL VALUE = No growth 08/04/16 17:05 Blood Blood Culture - Preliminary No growth aerobically or anaerobically at 24-48 hours. NORMAL VALUE = No growth Cxray: 1 view Chest x-ray was seen personally patient has no acute pulmonary infiltrate left lower lobe minimal basal atelectasis was noted Medications Methylprednisolone Sodium Succinate (Solu-Medrol) 60 mg IV Q6H SANJANA Stop: 08/19/16 16:59 Last Admin: 08/06/16 08:41 Dose: 60 mg Oxycodone HCl (Oxycodone Immediate Release (Oxyir)) 10 mg PO Q8H PRN PRN Reason: Pain Stop: 08/11/16 21:34 Last Admin: 08/06/16 06:47 Dose: 10 mg Promethazine HCl (Phenergan) 12.5 mg IV Q6H PRN; Protocol PRN Reason: Nausea/Vomiting - Alternative Stop: 08/18/16 16:59 Acetaminophen (Tylenol Suppository) 650 mg [place] Q6H PRN; Protocol PRN Reason: Mild Pain or Fever above 100.4 Stop: 08/18/16 16:59 Acetaminophen (Tylenol Tablet) 650 mg PO Q6H PRN; Protocol PRN Reason: Mild Pain or Fever above 100.4 Stop: 08/18/16 16:59 Albuterol/Ipratropium (Duoneb) 3 ml NEB Q2H PRN PRN Reason: Wheezing Stop: 08/18/16 16:59 Last Admin: 08/05/16 11:48 Dose: 3 ml Albuterol/Ipratropium (Duoneb) 3 ml NEB RTQ6 [facility]JANA Stop: 08/18/16 16:59 Last Admin: 08/06/16 07:28 Dose: 3 ml Alprazolam (Xanax) 0.5 mg PO BID PRN PRN Reason: Anxiety Stop: 08/18/16 21:34 Atorvastatin Calcium (Lipitor) 10 mg PO DAILY [facility]JA[facility] Stop: 08/19/16 08:59 Last Admin: 08/06/16 08:42 Dose: 10 mg Benzonatate (Tessalon) 200 mg PO Q8H PRN PRN Reason: Cough - First Option Stop: 08/18/16 16:59 Ceftriaxone Sodium 1 gm/ (Dextrose) 100 mls @ 100 mls/hr IV Q24H [facility]JANA Stop: 08/12/16 13:59 Last Admin: 08/05/16 13:45 Dose: 100 mls/hr Lisinopril (Zestril) 20 mg PO DAILY [facility] Stop: 08/19/16 08:59 Last Admin: 08/06/16 08:42 Dose: 20 mg Montelukast Sodium (Singulair) 10 mg PO DAILY [facility] Stop: 08/19/16 08:59 Last Admin: 08/06/16 08:42 Dose: 10 mg Nicotine (Nicoderm) 21 mg TOP Q24H [facility] Stop: 08/19/16 00:59 Last Admin: 08/05/16 23:19 Dose: Not Given Ondansetron HCl (Zofran) 4 mg IV Q6H PRN PRN Reason: Nausea/Vomiting - First Option Stop: 08/18/16 16:59 Senna/Docusate Sodium (Senokot S Or Jade Colace) 1 tab PO BID PRN PRN Reason: Constipation - First Option Stop: 08/18/16 16:59 Simethicone (Mylicon, Mylanta Gas) 80 mg PO Q3H PRN PRN Reason: Intestinal Gas Stop: 08/18/16 16:59 Sodium Chloride (Normal Saline) 1,000 mls @ 100 mls/hr IV Q24H [facility] Stop: 08/18/16 16:59 Last Admin: 08/05/16 20:30 Dose: 100 mls/hr Temazepam (Restoril) 15 mg PO HS PRN PRN Reason: Sleep or Insomnia Stop: 08/18/16 16:59 - Assessment/Plan (1) Acute respiratory failure with hypoxia and hypercarbia Acute J96.01 - ACUTE RESPIRATORY FAILURE WITH HYPOXIA; J96.02 - ACUTE RESPIRATORY FAILURE WITH HYPERCAPNIA Comment/Plan: Patient has been dyspneic and wheezing and I would continue the current treatment with Solu-Medrol 60 mg IV q.6 hours along with Rocephin for some recent patient was not getting Zithromax and I would at that I would continue DVT and GI prophylaxis nebulizers oxygen and other supportive care and would follow the patient closely for development of complications would repeat a chest x-ray and a blood gas in the morning would stop Zofran for possible side effects with Zithromax (2) Acute exacerbation of chronic obstructive airways disease Acute J44.1 - CHRONIC OBSTRUCTIVE PULMONARY DISEASE W (ACUTE) EXACERBATION Comment/Plan: Continue the current nebulizers steroids and antibiotics (3) Anxiety Chronic F41.9 - ANXIETY DISORDER, UNSPECIFIED Comment/Plan: Continue current therapy I personally saw and evaluated the patient.: Yes Case Care Discussed with: Patient
[2016-08-06] MEDS: ATORVASTATIN 10 MG TAB PO SCH (08:42)
[2016-08-06] MEDS: LISINOPRIL 20 MG TAB PO SCH (08:42)
[2016-08-06] MEDS: MONTELUKAST SODIUM 10 MG TAB PO SCH (08:42)
[2016-08-06] MEDS ORDERED: Vaccine Screening Complete SCH (10:00)
--- NOTE | 2016-08-06 12:58 | GENMEDPROG ---
Subjective Note: Patient states that he is having a significant amount of shortness of breath when getting out of better sitting up in the chair. His sats dropped significantly and he feels awful. Notes Reviewed: Yes Events from last night noted and discussed with Clinical Staff Current Medication List: Reviewed Currently: Reports: Cough, SOB, Tobacco Use/Hx (Former). Denies: Sputum DVT Prophylaxis: Yes - Physical Examination Vital Signs and I&O: Last Vital Signs Temp 98.8 F 08/06/16 09:08 Pulse 100 08/06/16 09:08 Resp 20 08/06/16 09:08 BP 170/86 08/06/16 09:08 Pulse Ox 94 08/06/16 09:08 Oxygen Pulse Oxygen Saturation 94 O2 Device Nasal Cannula Oxygen Flow Rate 2 Fraction of Inspired Oxygen ( FIO2) Intake & Output 08/03/16 08/04/16 08/05/16 08/06/16 23:59 23:59 23:59 23:59 Intake Total 1999 2544 2104 Output Total 600 1750 1925 Balance 1400 794 179 Patient's weight 57.72 kg 59.109 kg 59.534 kg General: Alert, Oriented x3, No acute distress, Well appearing, Well nourished HEENT: Normal (Normocephalic, atraumatic;EOMI.Sclera white, Nares patent, without discharge or bleeding. No oropharyngeal lesions or erythema. Mucous membranes are dry.) Neck: Non-tender, Full range of motion, Normal Trachea alignment, Normal inspection (No cervical lymphadenopathy. No supraclavicular lymphadenopathy.), No Masses palpable, Supple Lymphatics: Normal (No lymph node swelling or pain.) Respiratory: Accessory Muscle Use, Rhonchi, Wheezes (bilateral, very tight) Cardiovascular: Regular rate and rhythm (No bradycardia or tachycardia), Normal S1, No Gallops,Rubs/Murmurs, Normal S2, Good Pedal Pulses (DP pulses 2+ bilaterally) GI: Normal bowel sounds (normal active sounds), Soft (non-distended), Non tender , No hepatospenomegaly, No masses Extremities/Musculoskeletal: Normal pulses (DP pulses 2+ bilaterally) Skin: Warm,Dry and Intact, No rashes, No significant lesion Neurological: Strength at 5/5 X4 ext (Motor 5/5 throughout.), Normal tone, Cranial nerves 3-12 NL ( 2-12 grossly intact.) Psych/Mental Status: Appropriate, Normal Affect Lab/DI/Studies Reviewed: Abnormal Lab Results 08/06/16 04:05 pCO2 53.0 H HCO3 32.1 H Total CO2 33.7 H Base Excess 5.7 H PORTABLE CHEST 1 VIEW COMPARISON: CT 08/04/2016. Chest x-ray 08/04/2016. FINDINGS: Mediastinum hilar structures normal. Lungs are clear of acute infiltrates. Calcified pulmonary nodules noted consistent granulomas. COPD. Heart size stable. No pleural effusion or pneumothorax. IMPRESSION: COPD. No acute cardiopulmonary disease. Stable chest. Electronically Signed By: Angel Lewiston On: 08/06/2016 07:27 - Assessment (1) Acute exacerbation of chronic obstructive airways disease Acute J44.1 - CHRONIC OBSTRUCTIVE PULMONARY DISEASE W (ACUTE) EXACERBATION (2) Acute respiratory failure with hypoxia and hypercarbia Acute J96.01 - ACUTE RESPIRATORY FAILURE WITH HYPOXIA; J96.02 - ACUTE RESPIRATORY FAILURE WITH HYPERCAPNIA (3) COPD (chronic obstructive pulmonary disease) with acute bronchitis Acute J44.0 - CHRONIC OBSTRUCTIVE PULMON DISEASE W ACUTE LOWER RESP INFCT Comment/Plan: 08/05/2016: Continue pulmonary toilet oxygenation and recheck chest x-ray in a.m.. 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 Admission: PATIENT REPORTS THAT LEFT HAND AND ARM GO NUMB AT TIMES. CTA SHWS OCCLUSION OF LEFT SUBCLAVIAN ARTERY, BUT COLLATERAL CIRCULATION FEEDS BRACHIAL ARTERY ON LEFT. (5) Anxiety Chronic F41.9 - ANXIETY DISORDER, UNSPECIFIED Comment/Plan: Continue home medications (6) DDD (degenerative disc disease), lumbosacral Chronic M51.37 - OTHER INTERVERTEBRAL DISC DEGENERATION, LUMBOSACRAL REGION Comment/Plan: Back pain under control (7) Hypertension Chronic I10 - ESSENTIAL (PRIMARY) HYPERTENSION Qualifiers: Qualified Code(s): I10 - Essential (primary) hypertension Comment/Plan: Continue medications
[2016-08-06] MEDS: CEFTRIAXONE 1 GM in D5W 100 ML IV SCH (13:02)
[2016-08-06] MEDS: ACETAMINOPHEN 325 MG/TAB TABLET PO PRN (13:09)
[2016-08-06] MEDS: Albuterol/Ipratropium Neb 3 ML NEB NEB PRN (14:10)
[2016-08-06] MEDS: AZITHROMYCIN 500 MG in D5W 250 ML IV SCH (16:16)
[2016-08-06] MEDS: NS 1,000 ML IV SCH ×2 (16:16→20:34)
[2016-08-06] MEDS: ALPRAZOLAM 0.5 MG TAB PO PRN ×2 (16:20→16:22)
[2016-08-07] MEDS: NICOTINE 21 MG PATCH TOP SCH (00:03)
[2016-08-07] MEDS: OXYCODONE HCL 5 MG TABLET PO PRN ×3 (00:03→16:10)
[2016-08-07] MEDS: Albuterol/Ipratropium Neb 3 ML NEB NEB SCH ×4 (01:15→19:51)
[2016-08-07] MEDS: METHYLPREDNISOLONE 125 MG/2 ML VIAL IV SCH ×4 (01:24→20:24)
[2016-08-07] MEDS: NS 1,000 ML IV SCH ×3 (03:00→20:25)
[2016-08-07 04:32] LABS: ALLEN'S TEST PASS; BEb 4.5 (+/- 2)
[2016-08-07 04:33] LABS: ABG Draw Site Right Radial; TCO2 31.2 MMOL/L (23-27)
[2016-08-07] MEDS: SODIUM CHLORIDE 0.9% 3 ML FLUSH FLUSH SCH ×2 (05:05→16:11)
[2016-08-07] MEDS: LISINOPRIL 20 MG TAB PO SCH (07:54)
[2016-08-07] MEDS: ATORVASTATIN 10 MG TAB PO SCH (07:55)
[2016-08-07] MEDS: MONTELUKAST SODIUM 10 MG TAB PO SCH (07:55)
[2016-08-07] MEDS ORDERED: FLU VACCINE (Afluria) 0.5 ML DOSE IM ONE (08:00)
--- NOTE | 2016-08-07 08:26 | DIRPT ---
CLINICAL DATA: Respiratory failure EXAM: PORTABLE CHEST 1 VIEW COMPARISON: 08/06/2016 FINDINGS: Calcified granulomas in the right upper lobe. Mild hyperinflation. Heart is normal size. Mild peribronchial thickening. No confluent opacities or effusions. IMPRESSION: Hyperinflation/COPD. Old granulomatous disease. Bronchitic changes, stable. Electronically Signed By: Jovany Stapleton M.D. On: 08/07/2016 08:23
[2016-08-07] MEDS: CEFTRIAXONE 1 GM in D5W 100 ML IV SCH (12:40)
--- NOTE | 2016-08-07 14:07 | PCM.PULM ---
Chief Complaint: Uneventful overnight patient has a c/o dyspnea at rest and on exertions, BUSCH,wheeze,cough. No chest pain the patient desaturates easily even when sitting with pulse ox in the low 80s Current medication list reviewed:yes Notes reviewed:yes, Events from last night noted and discussed with Clinical Staff - Physical Examination Vital Signs and I&O: Last Vital Signs Temp 98.1 F 08/07/16 13:24 Pulse 95 08/07/16 13:24 Resp 20 08/07/16 13:24 BP 116/77 08/07/16 13:24 Pulse Ox 95 08/07/16 13:24 Oxygen Pulse Oxygen Saturation 95 O2 Device Nasal Cannula Oxygen Flow Rate 2 Fraction of Inspired Oxygen ( FIO2) Intake & Output 08/04/16 08/05/16 08/06/16 08/07/16 23:59 23:59 23:59 23:59 Intake Total 1999 2544 3314 2850 Output Total 600 1750 2975 2175 Balance 1400 794 339 675 Patient's weight 57.72 kg 59.109 kg 59.534 kg 59.33 kg General: Alert, Oriented x3, Cooperative, Mild distress, Fatigue Respiratory: Diminished, Tachypnea, Wheezes ( bilaterally) Cardiovascular: Regular rate, Regular rate and rhythm, Normal S1, No Gallops, Rubs/Murmurs, Normal S2 GI: Normal bowel sounds, Soft, Non tender, No hepatospenomegaly Extremities/Musculoskeletal: Normal pulses Skin: Warm,Dry and Intact, No rashes, No breakdown Neurological: Normal Steady Gait, Normal speech, Strength at 5/5 X4 ext, Cranial nerves 3-12 NL, Reflexes 2+ Psych/Mental Status: Normal Affect, Anxious Result Diagrams: 08/05/16 06:18 08/05/16 06:18 Labs (last 24 hours): Laboratory Results - last 24 hr 08/07/16 04:25 Puncture Site Right radial pH 7.420 pCO2 46.0 H pO2 79.0 L HCO3 29.8 H Total CO2 31.2 H Base Excess 4.5 H FiO2 % 2l nc Specimen Drawn By Chloe Lab/DI/Studies Reviewed: Cxray: 1 view Chest x-ray was seen personally patient has hyperinflated lung field with bronchitic changes Medication: Methylprednisolone Sodium Succinate (Solu-Medrol) 60 mg IV Q6H [facility] Stop: 08/19/16 16:59 Last Admin: 08/06/16 08:41 Dose: 60 mg Oxycodone HCl (Oxycodone Immediate Release (Oxyir)) 10 mg PO Q8H PRN PRN Reason: Pain Stop: 08/11/16 21:34 Last Admin: 08/06/16 06:47 Dose: 10 mg Promethazine HCl (Phenergan) 12.5 mg IV Q6H PRN; Protocol PRN Reason: Nausea/Vomiting - Alternative Stop: 08/18/16 16:59 Acetaminophen (Tylenol Suppository) 650 mg SC Q6H PRN; Protocol PRN Reason: Mild Pain or Fever above 100.4 Stop: 08/18/16 16:59 Acetaminophen (Tylenol Tablet) 650 mg PO Q6H PRN; Protocol PRN Reason: Mild Pain or Fever above 100.4 Stop: 08/18/16 16:59 Albuterol/Ipratropium (Duoneb) 3 ml NEB Q2H PRN PRN Reason: Wheezing Stop: 08/18/16 16:59 Last Admin: 08/05/16 11:48 Dose: 3 ml Albuterol/Ipratropium (Duoneb) 3 ml NEB RTQ6 [facility] Stop: 08/18/16 16:59 Last Admin: 08/06/16 07:28 Dose: 3 ml Alprazolam (Xanax) 0.5 mg PO BID PRN PRN Reason: Anxiety Stop: 08/18/16 21:34 Atorvastatin Calcium (Lipitor) 10 mg PO DAILY [facility] Stop: 08/19/16 08:59 Last Admin: 08/06/16 08:42 Dose: 10 mg Benzonatate (Tessalon) 200 mg PO Q8H PRN PRN Reason: Cough - First Option Stop: 08/18/16 16:59 Ceftriaxone Sodium 1 gm/ (Dextrose) 100 mls @ 100 mls/hr IV Q24H [facility] Stop: 08/12/16 13:59 Last Admin: 08/05/16 13:45 Dose: 100 mls/hr Lisinopril (Zestril) 20 mg PO DAILY [facility] Stop: 08/19/16 08:59 Last Admin: 08/06/16 08:42 Dose: 20 mg Montelukast Sodium (Singulair) 10 mg PO DAILY [facility] Stop: 08/19/16 08:59 Last Admin: 08/06/16 08:42 Dose: 10 mg Nicotine (Nicoderm) 21 mg TOP Q24H [facility] Stop: 08/19/16 00:59 Last Admin: 08/05/16 23:19 Dose: Not Given Ondansetron HCl (Zofran) 4 mg IV Q6H PRN PRN Reason: Nausea/Vomiting - First [facility] Stop: 08/18/16 16:59 Senna/Docusate Sodium (Senokot S Or Jade Colace) 1 tab PO BID PRN PRN Reason: Constipation - First Option Stop: 08/18/16 16:59 Simethicone (Mylicon, Mylanta Gas) 80 mg PO Q3H PRN PRN Reason: Intestinal Gas Stop: 08/18/16 16:59 Sodium Chloride (Normal Saline) 1,000 mls @ 100 mls/hr IV Q24H [facility] Stop: 08/18/16 16:59 Last Admin: 08/05/16 20:30 Dose: 100 mls/hr Temazepam (Restoril) 15 mg PO HS PRN PRN Reason: Sleep or Insomnia Stop: 08/18/16 16:59 - Assessment/Plan (1) Acute respiratory failure with hypoxia and hypercarbia Acute J96.01 - ACUTE RESPIRATORY FAILURE WITH HYPOXIA; J96.02 - ACUTE RESPIRATORY FAILURE WITH HYPERCAPNIA Comment/Plan: Patient continues to be extremely dyspneic and wheezing and has significant hypoxia even when sitting down patient had a CT scan done that shows that he does not have pulmonary embolism and I think is just severe COPD with exacerbation and it will take it is time to get better patient may be a candidate for transfer to [facility] if felt reasonable by the hospitalist I would continue the current treatment with Solu-Medrol 60 mg IV q.6 hours along with antibiotics including Rocephin and Zithromax DVT and GI prophylaxis and supportive care long-term prognosis remains guarded (2) Acute exacerbation of chronic obstructive airways disease Acute J44.1 - CHRONIC OBSTRUCTIVE PULMONARY DISEASE W (ACUTE) EXACERBATION Comment/Plan: Continue the current nebulizers steroids and antibiotics (3) Anxiety Chronic F41.9 - ANXIETY DISORDER, UNSPECIFIED Comment/Plan: Continue current therapy I personally saw and evaluated the patient.: Yes Case Care Discussed with: Patient Education/Counseling Given To: Patient Education/Counseling Given Regarding: Diagnosis, Treatment, Prognosis, Follow Up , Disposition Plan
[2016-08-07] MEDS: ALPRAZOLAM 0.5 MG TAB PO PRN (15:19)
[2016-08-07] MEDS: AZITHROMYCIN 500 MG in D5W 250 ML IV SCH (15:20)
--- NOTE | 2016-08-07 17:54 | GENMEDPROG ---
Currently: Reports: Cough, SOB, Tobacco Use/Hx (Former). Denies: Sputum DVT Prophylaxis: Yes - Physical Examination Vital Signs and I&O: Last Vital Signs Temp 98.4 F 08/07/16 16:16 Pulse 93 08/07/16 16:16 Resp 20 08/07/16 16:16 BP 142/74 08/07/16 16:16 Pulse Ox 94 08/07/16 16:16 Oxygen Pulse Oxygen Saturation 94 O2 Device Nasal Cannula Oxygen Flow Rate 2 Fraction of Inspired Oxygen ( FIO2) Intake & Output 08/04/16 08/05/16 08/06/16 08/07/16 23:59 23:59 23:59 23:59 Intake Total 1999 2544 3314 3245 Output Total 600 1750 2975 2825 Balance 1400 794 339 420 Patient's weight 57.72 kg 59.109 kg 59.534 kg 59.33 kg General: Alert, Oriented x3, No acute distress, Well appearing, Well nourished HEENT: Normal (Normocephalic, atraumatic;EOMI.Sclera white, Nares patent, without discharge or bleeding. No oropharyngeal lesions or erythema. Mucous membranes are dry.) Neck: Non-tender, Full range of motion, Normal Trachea alignment, Normal inspection (No cervical lymphadenopathy. No supraclavicular lymphadenopathy.), No Masses palpable, Supple Lymphatics: Normal (No lymph node swelling or pain.) Respiratory: Accessory Muscle Use, Rhonchi, Wheezes (bilateral, very tight) Cardiovascular: Regular rate and rhythm (No bradycardia or tachycardia), Normal S1, No Gallops,Rubs/Murmurs, Normal S2, Good Pedal Pulses (DP pulses 2+ bilaterally) GI: Normal bowel sounds (normal active sounds), Soft (non-distended), Non tender , No hepatospenomegaly, No masses Extremities/Musculoskeletal: Normal pulses (DP pulses 2+ bilaterally) Skin: Warm,Dry and Intact, No rashes, No significant lesion Neurological: Strength at 5/5 X4 ext (Motor 5/5 throughout.), Normal tone, Cranial nerves 3-12 NL ( 2-12 grossly intact.) Psych/Mental Status: Appropriate, Normal Affect Lab/DI/Studies Reviewed: PORTABLE CHEST 1 VIEW COMPARISON: 08/06/2016 FINDINGS: Calcified granulomas in the right upper lobe. Mild hyperinflation. Heart is normal size. Mild peribronchial thickening. No confluent opacities or effusions. IMPRESSION: Hyperinflation/COPD. Old granulomatous disease. Bronchitic changes, stable. Electronically Signed By: Jovany Stapleton M.D. On: 08/07/2016 08:23 Laboratory Results - last 24 hr 08/07/16 04:25 Puncture Site Right radial pH 7.420 pCO2 46.0 H pO2 79.0 L HCO3 29.8 H Total CO2 31.2 H Base Excess 4.5 H FiO2 % 2l nc Specimen Drawn By Chloe - Assessment (1) Acute exacerbation of chronic obstructive airways disease Acute J44.1 - CHRONIC OBSTRUCTIVE PULMONARY DISEASE W (ACUTE) EXACERBATION (2) Acute respiratory failure with hypoxia and hypercarbia Acute J96.01 - ACUTE RESPIRATORY FAILURE WITH HYPOXIA; J96.02 - ACUTE RESPIRATORY FAILURE WITH HYPERCAPNIA (3) COPD (chronic obstructive pulmonary disease) with acute bronchitis Acute J44.0 - CHRONIC OBSTRUCTIVE PULMON DISEASE W ACUTE LOWER RESP INFCT Comment/Plan: 08/05/2016: Continue pulmonary toilet oxygenation and recheck chest x-ray in a.m.. 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 Admission: PATIENT REPORTS THAT LEFT HAND AND ARM GO NUMB AT TIMES. CTA SHWS OCCLUSION OF LEFT SUBCLAVIAN ARTERY, BUT COLLATERAL CIRCULATION FEEDS BRACHIAL ARTERY ON LEFT. (5) Anxiety Chronic F41.9 - ANXIETY DISORDER, UNSPECIFIED Comment/Plan: Continue home medications (6) DDD (degenerative disc disease), lumbosacral Chronic M51.37 - OTHER INTERVERTEBRAL DISC DEGENERATION, LUMBOSACRAL REGION Comment/Plan: Back pain under control (7) Hypertension Chronic I10 - ESSENTIAL (PRIMARY) HYPERTENSION Qualifiers: Qualified Code(s): I10 - Essential (primary) hypertension Comment/Plan: Continue medications
[2016-08-08] MEDS: NICOTINE 21 MG PATCH TOP SCH (00:08)
[2016-08-08] MEDS: OXYCODONE HCL 5 MG TABLET PO PRN ×3 (00:26→16:20)
[2016-08-08] MEDS: Albuterol/Ipratropium Neb 3 ML NEB NEB PRN ×3 (00:40→17:22)
[2016-08-08] MEDS: METHYLPREDNISOLONE 125 MG/2 ML VIAL IV SCH ×4 (01:11→21:58)
[2016-08-08] MEDS: Albuterol/Ipratropium Neb 3 ML NEB NEB SCH ×4 (01:35→19:25)
[2016-08-08] MEDS: SODIUM CHLORIDE 0.9% 3 ML FLUSH FLUSH SCH ×2 (05:24→15:10)
[2016-08-08 06:19] LABS: ALLEN'S TEST PASS; BEb 6.8 (+/- 2); TCO2 35.4 MMOL/L (23-27)
[2016-08-08 06:20] LABS: ABG Draw Site Right Radial
[2016-08-08] MEDS ORDERED: FLU VACCINE (Afluria) 0.5 ML DOSE IM ONE (08:00)
[2016-08-08] MEDS: MONTELUKAST SODIUM 10 MG TAB PO SCH (08:09)
[2016-08-08] MEDS: ATORVASTATIN 10 MG TAB PO SCH (08:09)
[2016-08-08] MEDS: LISINOPRIL 20 MG TAB PO SCH (08:09)
--- NOTE | 2016-08-08 08:16 | PCM.PULM ---
Chief Complaint: Patient in bed states that he is still short of breath even at rest, has a cough , sputum, congestion,wheeze. On 3L/M oxygen via nasal cannula Current medication list and notes reviewed:yes, Events from last night noted and discussed with Clinical Staff - Physical Examination Vital Signs and I&O: Last Vital Signs Temp 97.9 F 08/08/16 06:00 Pulse 105 08/08/16 08:12 Resp 18 08/08/16 07:34 BP 163/79 08/08/16 08:12 Pulse Ox 97 08/08/16 07:34 Oxygen Pulse Oxygen Saturation 97 O2 Device Nasal Cannula Oxygen Flow Rate 3 Fraction of Inspired Oxygen ( FIO2) Intake & Output 08/05/16 08/06/16 08/07/16 08/08/16 23:59 23:59 23:59 23:59 Intake Total 2544 3314 3665 1162 Output Total 1750 2975 3025 1375 Balance 794 339 640 -213 Patient's weight 59.109 kg 59.534 kg 59.33 kg 58.995 kg General: Alert, Oriented x3, Cooperative, No acute distress, Fatigue Respiratory: Diminished, Wheezes Cardiovascular: Regular rate, Regular rate and rhythm, Normal S1, No Gallops, Rubs/Murmurs, Normal S2 GI: Normal bowel sounds, Soft, Non tender, No hepatospenomegaly, No masses Extremities/Musculoskeletal: Normal pulses Skin: Warm,Dry and Intact, No rashes, No breakdown, No significant lesion Neurological: Normal Steady Gait, Normal speech, Strength at 5/5 X4 ext, Normal tone, Cranial nerves 3-12 NL Psych/Mental Status: Appropriate, Anxious Result Diagrams: 08/05/16 06:18 08/05/16 06:18 Labs (last 24 hours): Laboratory Results - last 24 hr 08/08/16 06:14 Puncture Site Right radial pH 7.380 pCO2 57.0 H pO2 69.0 L HCO3 33.7 H Total CO2 35.4 H Base Excess 6.8 H FiO2 % 3 Specimen Drawn By Vicente Lab/DI/Studies Reviewed: Medications Methylprednisolone Sodium Succinate (Solu-Medrol) 60 mg IV Q6H [facility] Stop: 08/19/16 16:59 Last Admin: 08/06/16 08:41 Dose: 60 mg Oxycodone HCl (Oxycodone Immediate Release (Oxyir)) 10 mg PO Q8H PRN PRN Reason: Pain Stop: 08/11/16 21:34 Last Admin: 08/06/16 06:47 Dose: 10 mg Promethazine HCl (Phenergan) 12.5 mg IV Q6H PRN; Protocol PRN Reason: Nausea/Vomiting - Alternative Stop: 08/18/16 16:59 Acetaminophen (Tylenol Suppository) 650 mg UT Q6H PRN; Protocol PRN Reason: Mild Pain or Fever above 100.4 Stop: 08/18/16 16:59 Acetaminophen (Tylenol Tablet) 650 mg PO Q6H PRN; Protocol PRN Reason: Mild Pain or Fever above 100.4 Stop: 08/18/16 16:59 Albuterol/Ipratropium (Duoneb) 3 ml NEB Q2H PRN PRN Reason: Wheezing Stop: 08/18/16 16:59 Last Admin: 08/05/16 11:48 Dose: 3 ml Albuterol/Ipratropium (Duoneb) 3 ml NEB RTQ6 [facility] Stop: 08/18/16 16:59 Last Admin: 08/06/16 07:28 Dose: 3 ml Alprazolam (Xanax) 0.5 mg PO BID PRN PRN Reason: Anxiety Stop: 08/18/16 21:34 Atorvastatin Calcium (Lipitor) 10 mg PO DAILY [facility] Stop: 08/19/16 08:59 Last Admin: 08/06/16 08:42 Dose: 10 mg Benzonatate (Tessalon) 200 mg PO Q8H PRN PRN Reason: Cough - First Option Stop: 08/18/16 16:59 Ceftriaxone Sodium 1 gm/ (Dextrose) 100 mls @ 100 mls/hr IV Q24H [facility] Stop: 08/12/16 13:59 Last Admin: 08/05/16 13:45 Dose: 100 mls/hr Lisinopril (Zestril) 20 mg PO DAILY [facility] Stop: 08/19/16 08:59 Last Admin: 08/06/16 08:42 Dose: 20 mg Montelukast Sodium (Singulair) 10 mg PO DAILY [facility] Stop: 08/19/16 08:59 Last Admin: 08/06/16 08:42 Dose: 10 mg Nicotine (Nicoderm) 21 mg TOP Q24H [facility] Stop: 08/19/16 00:59 Last Admin: 08/05/16 23:19 Dose: Not Given Ondansetron HCl (Zofran) 4 mg IV Q6H PRN PRN Reason: Nausea/Vomiting - First Option Stop: 08/18/16 16:59 Senna/Docusate Sodium (Senokot S Or Jade Colace) 1 tab PO BID PRN PRN Reason: Constipation - First Option Stop: 08/18/16 16:59 Simethicone (Mylicon, Mylanta Gas) 80 mg PO Q3H PRN PRN Reason: Intestinal Gas Stop: 08/18/16 16:59 Sodium Chloride (Normal Saline) 1,000 mls @ 100 mls/hr IV Q24H [facility] Stop: 08/18/16 16:59 Last Admin: 08/05/16 20:30 Dose: 100 mls/hr Temazepam (Restoril) 15 mg PO HS PRN PRN Reason: Sleep or Insomnia Stop: 08/18/16 16:59 - Assessment/Plan (1) Acute respiratory failure with hypoxia and hypercarbia Acute J96.01 - ACUTE RESPIRATORY FAILURE WITH HYPOXIA; J96.02 - ACUTE RESPIRATORY FAILURE WITH HYPERCAPNIA Comment/Plan: Patient has been improving slowly wheezing is slightly better. I would continue the supportive care with Solu-Medrol 60 mg IV q.6 hours continue Rocephin Zithromax continue DVT and GI prophylaxis patient may be a good candidate for [facility] for ongoing antibiotic use and physiotherapy if he can qualify. Continue his other care and patient has guarded long-term prognosis (2) Acute exacerbation of chronic obstructive airways disease Acute J44.1 - CHRONIC OBSTRUCTIVE PULMONARY DISEASE W (ACUTE) EXACERBATION Comment/Plan: Continue the current nebulizers steroids and antibiotics would get a blood gas in the morning (3) Anxiety Chronic F41.9 - ANXIETY DISORDER, UNSPECIFIED Comment/Plan: Continue current therapy I personally saw and evaluated the patient.: Yes Case Care Discussed with: Patient Education/Counseling Given To: Patient Education/Counseling Given Regarding: Diagnosis, Treatment, Prognosis, Follow Up , Disposition Plan
[2016-08-08] MEDS: CEFTRIAXONE 1 GM in D5W 100 ML IV SCH (12:58)
[2016-08-08] MEDS: AZITHROMYCIN 500 MG in D5W 250 ML IV SCH (14:28)
[2016-08-08] MEDS: PROMETHAZINE 25 MG/ML VIAL IV PRN (14:51)
--- NOTE | 2016-08-08 18:32 | GENMEDPROG ---
Notes Reviewed: Yes Events from last night noted and discussed with Clinical Staff Current Medication List: Reviewed Currently: Reports: Cough, SOB, Tobacco Use/Hx (Former). Denies: Sputum DVT Prophylaxis: Yes - Physical Examination Vital Signs and I&O: Last Vital Signs Temp 98.1 F 08/08/16 16:38 Pulse 106 08/08/16 16:38 Resp 20 08/08/16 16:38 BP 141/74 08/08/16 16:38 Pulse Ox 93 08/08/16 16:38 Oxygen Pulse Oxygen Saturation 93 O2 Device Nasal Cannula Oxygen Flow Rate 2 Fraction of Inspired Oxygen ( FIO2) Intake & Output 08/05/16 08/06/16 08/07/16 08/08/16 23:59 23:59 23:59 23:59 Intake Total 2544 3314 3665 3255 Output Total 1750 2975 3025 2475 Balance 794 339 640 780 Patient's weight 130 lb 5 oz 131 lb 4 oz 130 lb 12.8 oz 130 lb 1 oz General: Alert, Oriented x3, No acute distress, Well appearing, Well nourished HEENT: Normal (Normocephalic, atraumatic;EOMI.Sclera white, Nares patent, without discharge or bleeding. No oropharyngeal lesions or erythema. Mucous membranes are dry.) Neck: Non-tender, Full range of motion, Normal Trachea alignment, Normal inspection (No cervical lymphadenopathy. No supraclavicular lymphadenopathy.), No Masses palpable, Supple Lymphatics: Normal (No lymph node swelling or pain.) Respiratory: Accessory Muscle Use, Rhonchi, Wheezes (bilateral, very tight) Cardiovascular: Regular rate and rhythm (No bradycardia or tachycardia), Normal S1, No Gallops,Rubs/Murmurs, Normal S2, Good Pedal Pulses (DP pulses 2+ bilaterally) GI: Normal bowel sounds (normal active sounds), Soft (non-distended), Non tender , No hepatospenomegaly, No masses Extremities/Musculoskeletal: Normal pulses (DP pulses 2+ bilaterally) Skin: Warm,Dry and Intact, No rashes, No significant lesion Neurological: Strength at 5/5 X4 ext (Motor 5/5 throughout.), Normal tone, Cranial nerves 3-12 NL ( 2-12 grossly intact.) Psych/Mental Status: Appropriate, Normal Affect
[2016-08-08] MEDS: NS 1,000 ML IV SCH (22:12)
[2016-08-09] MEDS: OXYCODONE HCL 5 MG TABLET PO PRN ×3 (00:17→17:14)
[2016-08-09] MEDS: NICOTINE 21 MG PATCH TOP SCH (00:24)
[2016-08-09] MEDS: NS 1,000 ML IV SCH ×3 (00:25→22:39)
[2016-08-09] MEDS: Albuterol/Ipratropium Neb 3 ML NEB NEB SCH ×4 (00:25→21:17)
[2016-08-09] MEDS: METHYLPREDNISOLONE 125 MG/2 ML VIAL IV SCH ×4 (02:59→22:38)
[2016-08-09 04:19] LABS: ALLEN'S TEST PASS; TCO2 36.4 MMOL/L (23-27)
[2016-08-09] MEDS: Albuterol/Ipratropium Neb 3 ML NEB NEB PRN (04:20)
[2016-08-09 04:21] LABS: ABG Draw Site Right Radial
[2016-08-09] MEDS: SODIUM CHLORIDE 0.9% 3 ML FLUSH FLUSH SCH ×2 (05:36→15:28)
[2016-08-09] MEDS ORDERED: FLU VACCINE (Afluria) 0.5 ML DOSE IM ONE (08:00)
[2016-08-09] MEDS: ATORVASTATIN 10 MG TAB PO SCH (08:31)
[2016-08-09] MEDS: LISINOPRIL 20 MG TAB PO SCH (08:32)
[2016-08-09] MEDS: MONTELUKAST SODIUM 10 MG TAB PO SCH (08:32)
--- NOTE | 2016-08-09 10:30 | PCM.PULM ---
Chief Complaint: Acute respiratory failure on chronic with hypoxia COPD exacerbation Anxiety Patient continue having dyspnea at rest and with any movement. He had uneventful overnight last night and slept fairly Current complaints: Dyspnea, BUSCH,wheeze, cough, sputum. Denies hemoptysis or chest pain Current medication list and notes reviewed and discussed with Clinical Staff GI/DVT prophylaxis:yes - Physical Examination Vital Signs and I&O: Last Vital Signs Temp 97.8 F 08/09/16 05:45 Pulse 91 08/09/16 05:45 Resp 18 08/09/16 05:45 BP 126/80 08/09/16 05:45 Pulse Ox 97 08/09/16 08:00 Oxygen Pulse Oxygen Saturation 97 O2 Device Nasal Cannula Oxygen Flow Rate 3 Fraction of Inspired Oxygen ( FIO2) Intake & Output 08/06/16 08/07/16 08/08/16 08/09/16 23:59 23:59 23:59 23:59 Intake Total 3314 3665 3495 1537 Output Total 2975 3025 3075 1050 Balance 339 640 420 487 Patient's weight 59.534 kg 59.33 kg 58.995 kg 59.647 kg General: Alert, Oriented x3, Mild distress, Fatigue Respiratory: Accessory Muscle Use, Diminished, Tachypnea, Wheezes Cardiovascular: Regular rate, Regular rate and rhythm, Normal S1, No Gallops, Rubs/Murmurs, Normal S2 GI: Normal bowel sounds, Soft, Non tender, No masses Extremities/Musculoskeletal: Normal pulses Skin: Warm,Dry and Intact, No rashes, No breakdown, No significant lesion Neurological: Normal Steady Gait, Normal speech, Strength at 5/5 X4 ext, Normal tone, Cranial nerves 3-12 NL Psych/Mental Status: Normal Affect, Cooperative, Anxious Result Diagrams: 08/10/16 07:17 08/10/16 07:17 Labs (last 24 hours): Laboratory Results - last 24 hr 08/09/16 04:15 Puncture Site Right radial pH 7.400 pCO2 56.0 H pO2 53.0 L HCO3 34.7 H Total CO2 36.4 H Base Excess 8.0 H FiO2 % 2lpm/nc Specimen Drawn By [facility] Lab/DI/Studies Reviewed: EKG: NSR, NO ST or ST wave changes noted Medications: Methylprednisolone Sodium Succinate (Solu-Medrol) 60 mg IV Q6H [facility] Stop: 08/19/16 16:59 Last Admin: 08/06/16 08:41 Dose: 60 mg Oxycodone HCl (Oxycodone Immediate Release (Oxyir)) 10 mg PO Q8H PRN PRN Reason: Pain Stop: 08/11/16 21:34 Last Admin: 08/06/16 06:47 Dose: 10 mg Promethazine HCl (Phenergan) 12.5 mg IV Q6H PRN; Protocol PRN Reason: Nausea/Vomiting - Alternative Stop: 08/18/16 16:59 Acetaminophen (Tylenol Suppository) 650 mg [place] Q6H PRN; Protocol PRN Reason: Mild Pain or Fever above 100.4 Stop: 08/18/16 16:59 Acetaminophen (Tylenol Tablet) 650 mg PO Q6H PRN; Protocol PRN Reason: Mild Pain or Fever above 100.4 Stop: 08/18/16 16:59 Albuterol/Ipratropium (Duoneb) 3 ml NEB Q2H PRN PRN Reason: Wheezing Stop: 08/18/16 16:59 Last Admin: 08/05/16 11:48 Dose: 3 ml Albuterol/Ipratropium (Duoneb) 3 ml NEB RTQ6 [facility] Stop: 08/18/16 16:59 Last Admin: 08/06/16 07:28 Dose: 3 ml Alprazolam (Xanax) 0.5 mg PO BID PRN PRN Reason: Anxiety Stop: 08/18/16 21:34 Atorvastatin Calcium (Lipitor) 10 mg PO DAILY [facility] Stop: 08/19/16 08:59 Last Admin: 08/06/16 08:42 Dose: 10 mg Benzonatate (Tessalon) 200 mg PO Q8H PRN PRN Reason: Cough - First Option Stop: 08/18/16 16:59 Ceftriaxone Sodium 1 gm/ (Dextrose) 100 mls @ 100 mls/hr IV Q24H [facility] Stop: 08/12/16 13:59 Last Admin: 08/05/16 13:45 Dose: 100 mls/hr Lisinopril (Zestril) 20 mg PO DAILY [facility] Stop: 08/19/16 08:59 Last Admin: 08/06/16 08:42 Dose: 20 mg Montelukast Sodium (Singulair) 10 mg PO DAILY [facility] Stop: 08/19/16 08:59 Last Admin: 08/06/16 08:42 Dose: 10 mg Nicotine (Nicoderm) 21 mg TOP Q24H [facility] Stop: 08/19/16 00:59 Last Admin: 08/05/16 23:19 Dose: Not Given Ondansetron HCl (Zofran) 4 mg IV Q6H PRN PRN Reason: Nausea/Vomiting - First Option Stop: 08/18/16 16:59 Senna/Docusate Sodium (Senokot S Or Jade Colace) 1 tab PO BID PRN PRN Reason: Constipation - First Option Stop: 08/18/16 16:59 Simethicone (Mylicon, Mylanta Gas) 80 mg PO Q3H PRN PRN Reason: Intestinal Gas Stop: 08/18/16 16:59 Sodium Chloride (Normal Saline) 1,000 mls @ 100 mls/hr IV Q24H [facility] Stop: 08/18/16 16:59 Last Admin: 08/05/16 20:30 Dose: 100 mls/hr Temazepam (Restoril) 15 mg PO HS PRN PRN Reason: Sleep or Insomnia Stop: 08/18/16 16:59 Fluticasone Propionate (Flonase Nasal [place]) 1 sprays MARGARITA BID Stop: 08/09/16 12:10 - Assessment/Plan (1) Acute exacerbation of chronic obstructive airways disease Acute J44.1 - CHRONIC OBSTRUCTIVE PULMONARY DISEASE W (ACUTE) EXACERBATION Comment/Plan: Improving slowly. Would continue current therapy with IV steroids, IV antibiotics, Duo neb treatment and supplemental oxygen. Will get an ABG and cxray in the morning. Would continue full supportive care. (2) Acute respiratory failure with hypoxia and hypercarbia Acute J96.01 - ACUTE RESPIRATORY FAILURE WITH HYPOXIA; J96.02 - ACUTE RESPIRATORY FAILURE WITH HYPERCAPNIA Comment/Plan: Patient breathing is improving slowly. Would continue IV steroids,IV antibiotics , duo nebulizer treatment, supplemental oxygen, DVT/GI prophylaxis. Continue his other care and patient has guarded long-term prognosis (3) Anxiety Chronic F41.9 - ANXIETY DISORDER, UNSPECIFIED Comment/Plan: stable. Continue Xanax prn
[2016-08-09] MEDS ORDERED: FLUTICASONE PROPIONATE 16 GM BOT NAS SCH (12:00)
[2016-08-09] MEDS: CEFTRIAXONE 1 GM in D5W 100 ML IV SCH (13:55)
[2016-08-09] MEDS: AZITHROMYCIN 500 MG in D5W 250 ML IV SCH (15:16)
[2016-08-09] MEDS: ALPRAZOLAM 0.5 MG TAB PO PRN (15:28)
[2016-08-09] MEDS: FLUTICASONE PROPIONATE 16 GM BOT NAS SCH (20:12)
--- NOTE | 2016-08-09 20:52 | GENMEDPROG ---
Notes Reviewed: Yes Events from last night noted and discussed with Clinical Staff Current Medication List: Reviewed Currently: Reports: Cough, SOB, Tobacco Use/Hx (Former). Denies: Sputum DVT Prophylaxis: Yes - Physical Examination Vital Signs and I&O: Last Vital Signs Temp 97.8 F 08/09/16 18:10 Pulse 110 08/09/16 18:10 Resp 18 08/09/16 18:10 BP 118/76 08/09/16 18:10 Pulse Ox 95 08/09/16 18:10 Oxygen Pulse Oxygen Saturation 95 O2 Device Nasal Cannula Oxygen Flow Rate 3 Fraction of Inspired Oxygen ( FIO2) Intake & Output 08/06/16 08/07/16 08/08/16 08/09/16 23:59 23:59 23:59 23:59 Intake Total 3314 3665 3495 1897 Output Total 2975 3025 3075 2000 Balance 339 640 420 -103 Patient's weight 131 lb 4 oz 130 lb 12.8 oz 130 lb 1 oz 131 lb 8 oz General: Alert, Oriented x3, No acute distress, Well appearing, Well nourished HEENT: Normal (Normocephalic, atraumatic;EOMI.Sclera white, Nares patent, without discharge or bleeding. No oropharyngeal lesions or erythema. Mucous membranes are dry.) Neck: Non-tender, Full range of motion, Normal Trachea alignment, Normal inspection (No cervical lymphadenopathy. No supraclavicular lymphadenopathy.), No Masses palpable, Supple Lymphatics: Normal (No lymph node swelling or pain.) Respiratory: Accessory Muscle Use, Rhonchi, Wheezes (bilateral, very tight) Cardiovascular: Regular rate and rhythm (No bradycardia or tachycardia), Normal S1, No Gallops,Rubs/Murmurs, Normal S2, Good Pedal Pulses (DP pulses 2+ bilaterally) GI: Normal bowel sounds (normal active sounds), Soft (non-distended), Non tender , No hepatospenomegaly, No masses Extremities/Musculoskeletal: Normal pulses (DP pulses 2+ bilaterally) Skin: Warm,Dry and Intact, No rashes, No significant lesion Neurological: Strength at 5/5 X4 ext (Motor 5/5 throughout.), Normal tone, Cranial nerves 3-12 NL ( 2-12 grossly intact.) Psych/Mental Status: Appropriate, Normal Affect Lab/DI/Studies Reviewed: Laboratory Results - last 24 hr 08/09/16 04:15 Puncture Site Right radial pH 7.400 pCO2 56.0 H pO2 53.0 L HCO3 34.7 H Total CO2 36.4 H Base Excess 8.0 H FiO2 % 2lpm/nc Specimen Drawn By Ani
[2016-08-09] MEDS: BENZONATATE 100 MG PERLES PO PRN (22:33)
[2016-08-10] MEDS: NICOTINE 21 MG PATCH TOP SCH (00:09)
[2016-08-10] MEDS: NS 1,000 ML IV SCH ×3 (00:09→22:28)
[2016-08-10] MEDS: OXYCODONE HCL 5 MG TABLET PO PRN ×3 (00:48→18:18)
[2016-08-10] MEDS: Albuterol/Ipratropium Neb 3 ML NEB NEB SCH ×4 (02:39→19:11)
[2016-08-10] MEDS: METHYLPREDNISOLONE 125 MG/2 ML VIAL IV SCH ×4 (03:58→19:55)
[2016-08-10] MEDS: SODIUM CHLORIDE 0.9% 3 ML FLUSH FLUSH SCH ×2 (03:58→18:12)
[2016-08-10] MEDS: ALPRAZOLAM 0.5 MG TAB PO PRN (07:04)
[2016-08-10 08:11] LABS: MPV 8.1 fL (7.4-10.4)
[2016-08-10 08:21] LABS: BLOOD UREA NITROGEN 25 MG/DL (9-20); CALCIUM 8.6 MG/DL (8.4-10.2); CALCULATED OSMOLALITY 275 MOs/Kg (270-290); CHLORIDE 99 mEq/L (98-107); GLUCOSE 152 MG/DL (70-99); SODIUM LEVEL 139 mEq/L (137-146)
[2016-08-10 08:59] LABS: ABG Draw Site Right Radial; ALLEN'S TEST PASS; BEb 9.3 (+/- 2); TCO2 37.4 MMOL/L (23-27)
[2016-08-10] MEDS: MONTELUKAST SODIUM 10 MG TAB PO SCH (09:21)
[2016-08-10] MEDS: FLUTICASONE PROPIONATE 16 GM BOT NAS SCH ×2 (09:21→19:53)
[2016-08-10] MEDS: LISINOPRIL 20 MG TAB PO SCH (09:21)
[2016-08-10] MEDS: ATORVASTATIN 10 MG TAB PO SCH (09:21)
--- NOTE | 2016-08-10 10:06 | DIRPT ---
CLINICAL DATA: COPD. EXAM: PORTABLE CHEST 1 VIEW COMPARISON: 08/07/2016 FINDINGS: Midline trachea. Normal heart size. Atherosclerosis in the transverse aorta. No pleural effusion or pneumothorax. Bilateral calcified pulmonary nodules, consistent with old granulomatous disease. Hyperinflation. No lobar consolidation. IMPRESSION: Hyperinflation, most consistent with COPD. Atherosclerosis in the transverse aorta. Electronically Signed By: Bj Hanson M.D. On: 08/10/2016 10:03
--- NOTE | 2016-08-10 11:36 | GENMEDPROG ---
Chief Complaint: COPD Subjective Note: Still very hypoxic and sob with movement. No chest pain. Notes Reviewed: Yes Events from last night noted and discussed with Clinical Staff Current Medication List: Reviewed Currently: Reports: Cough, SOB, Tobacco Use/Hx (Former). Denies: Sputum DVT Prophylaxis: Yes - Physical Examination Vital Signs and I&O: Last Vital Signs Temp 97.9 F 08/10/16 05:45 Pulse 95 08/10/16 05:45 Resp 20 08/10/16 05:45 BP 124/87 08/10/16 05:45 Pulse Ox 95 08/10/16 08:00 Oxygen Pulse Oxygen Saturation 95 O2 Device Nasal Cannula Oxygen Flow Rate 2 Fraction of Inspired Oxygen ( FIO2) Intake & Output 08/08/16 08/09/16 08/10/16 08/11/16 06:59 06:59 06:59 06:59 Intake Total 3605 3750 1643 240 Output Total 2725 2700 2000 450 Balance 880 1006 -140 -210 Patient's weight 58.995 kg 58.995 kg 60.413 kg General: Alert, Oriented x3, No acute distress, Well appearing, Well nourished HEENT: Normal (Normocephalic, atraumatic;EOMI.Sclera white, Nares patent, without discharge or bleeding. No oropharyngeal lesions or erythema. Mucous membranes are dry.) Neck: Non-tender, Full range of motion, Normal Trachea alignment, Normal inspection (No cervical lymphadenopathy. No supraclavicular lymphadenopathy.), No Masses palpable, Supple Lymphatics: Normal (No lymph node swelling or pain.) Respiratory: Accessory Muscle Use, Rhonchi, Wheezes (bilateral, very tight) Cardiovascular: Regular rate and rhythm (No bradycardia or tachycardia), Normal S1, No Gallops,Rubs/Murmurs, Normal S2, Good Pedal Pulses (DP pulses 2+ bilaterally) GI: Normal bowel sounds (normal active sounds), Soft (non-distended), Non tender , No hepatospenomegaly, No masses Extremities/Musculoskeletal: Normal pulses (DP pulses 2+ bilaterally) Skin: Warm,Dry and Intact, No rashes, No significant lesion Neurological: Strength at 5/5 X4 ext (Motor 5/5 throughout.), Normal tone, Cranial nerves 3-12 NL ( 2-12 grossly intact.) Psych/Mental Status: Appropriate, Normal Affect Lab/DI/Studies Reviewed: Laboratory Tests 08/10/16 08/10/16 08/10/16 07:17 07:17 08:45 WBC 17.1 H Hgb 12.1 L pH 7.420 pCO2 55.0 H pO2 81.0 Potassium 3.8 BUN 25 H Creatinine 0.70 - Plan Problem list is currently locked. COPD exacerbation: Continue empiric IV antibiotics and IV steroids. Seems to be improving overall, but still short of breath at rest, tachypneic and very dyspneic with any sort of exertion. Continue present car, wean steroids when improved further. He is on his home oxygen.
[2016-08-10] MEDS: CEFTRIAXONE 1 GM in D5W 100 ML IV SCH (13:33)
[2016-08-10] MEDS: AZITHROMYCIN 500 MG in D5W 250 ML IV SCH (18:12)
[2016-08-10] MEDS: BENZONATATE 100 MG PERLES PO PRN (18:18)
[2016-08-11] MEDS: NICOTINE 21 MG PATCH TOP SCH (00:14)
[2016-08-11] MEDS: Albuterol/Ipratropium Neb 3 ML NEB NEB SCH ×4 (01:02→20:36)
[2016-08-11] MEDS: NS 1,000 ML IV SCH ×3 (01:30→20:41)
[2016-08-11] MEDS: METHYLPREDNISOLONE 125 MG/2 ML VIAL IV SCH ×4 (01:35→20:40)
[2016-08-11] MEDS: OXYCODONE HCL 5 MG TABLET PO PRN ×3 (01:49→18:15)
[2016-08-11] MEDS: ALPRAZOLAM 0.5 MG TAB PO PRN (04:14)
[2016-08-11] MEDS: BENZONATATE 100 MG PERLES PO PRN ×2 (04:14→19:10)
[2016-08-11] MEDS: SODIUM CHLORIDE 0.9% 3 ML FLUSH FLUSH SCH ×2 (04:15→16:56)
[2016-08-11] MEDS: ATORVASTATIN 10 MG TAB PO SCH (08:44)
[2016-08-11] MEDS: FLUTICASONE PROPIONATE 16 GM BOT NAS SCH ×2 (08:44→20:41)
[2016-08-11] MEDS: MONTELUKAST SODIUM 10 MG TAB PO SCH (08:44)
[2016-08-11] MEDS: LISINOPRIL 20 MG TAB PO SCH (08:45)
[2016-08-11] MEDS: Albuterol/Ipratropium Neb 3 ML NEB NEB PRN ×2 (11:37→18:25)
[2016-08-11] MEDS: CEFTRIAXONE 1 GM in D5W 100 ML IV SCH (13:42)
[2016-08-11] MEDS: AZITHROMYCIN 500 MG in D5W 250 ML IV SCH (15:45)
--- NOTE | 2016-08-11 16:52 | GENMEDPROG ---
Subjective Note: Patient sitting up in chair. Looks significantly better than when I last saw him 4 days ago. He still desaturates with any activity. Notes Reviewed: Yes Events from last night noted and discussed with Clinical Staff Current Medication List: Reviewed Currently: Reports: Cough, SOB, Tobacco Use/Hx (Former). Denies: Sputum DVT Prophylaxis: Yes - Physical Examination Vital Signs and I&O: Last Vital Signs Temp 98.5 F 08/11/16 14:00 Pulse 115 08/11/16 14:00 Resp 23 08/11/16 14:00 BP 150/85 08/11/16 14:00 Pulse Ox 93 08/11/16 14:00 Oxygen Pulse Oxygen Saturation 93 O2 Device Nasal Cannula Oxygen Flow Rate 2 Fraction of Inspired Oxygen ( FIO2) Intake & Output 08/08/16 08/09/16 08/10/16 08/11/16 23:59 23:59 23:59 23:59 Intake Total 3495 1897 3399 1240 Output Total 3075 2250 2650 1100 Balance 420 -058 749 140 Patient's weight 58.995 kg 59.647 kg 60.413 kg 60.81 kg General: Alert, Oriented x3, No acute distress, Well appearing, Well nourished HEENT: Normal (Normocephalic, atraumatic;EOMI.Sclera white, Nares patent, without discharge or bleeding. No oropharyngeal lesions or erythema. Mucous membranes are dry.) Neck: Non-tender, Full range of motion, Normal Trachea alignment, Normal inspection (No cervical lymphadenopathy. No supraclavicular lymphadenopathy.), No Masses palpable, Supple Lymphatics: Normal (No lymph node swelling or pain.) Respiratory: Accessory Muscle Use, Rhonchi, Wheezes (bilateral, very tight) Cardiovascular: Regular rate and rhythm (No bradycardia or tachycardia), Normal S1, No Gallops,Rubs/Murmurs, Normal S2, Good Pedal Pulses (DP pulses 2+ bilaterally) GI: Normal bowel sounds (normal active sounds), Soft (non-distended), Non tender , No hepatospenomegaly, No masses Extremities/Musculoskeletal: Normal pulses (DP pulses 2+ bilaterally) Skin: Warm,Dry and Intact, No rashes, No significant lesion Neurological: Strength at 5/5 X4 ext (Motor 5/5 throughout.), Normal tone, Cranial nerves 3-12 NL ( 2-12 grossly intact.) Psych/Mental Status: Appropriate, Normal Affect - Assessment (1) Acute exacerbation of chronic obstructive airways disease Comment/Plan: 08/05/2016: Continue nebulized bronchodilators and IV steroids as well as antibiotics. Dr. Mccormick has been consulted. Admission: Admit. Provide adequate oxygenation. Follow ABG, O2 sats. Begin nebulized bronchodilators and IV steroids. Add IV antibiotics. (2) Acute respiratory failure with hypoxia and hypercarbia Acute J96.01 - ACUTE RESPIRATORY FAILURE WITH HYPOXIA; J96.02 - ACUTE RESPIRATORY FAILURE WITH HYPERCAPNIA (3) COPD (chronic obstructive pulmonary disease) with acute bronchitis Acute J44.0 - CHRONIC OBSTRUCTIVE PULMON DISEASE W ACUTE LOWER RESP INFCT Comment/Plan: 08/05/2016: Continue pulmonary toilet oxygenation and recheck chest x-ray in a.m.. 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 Admission: PATIENT REPORTS THAT LEFT HAND AND ARM GO NUMB AT TIMES. CTA SHWS OCCLUSION OF LEFT SUBCLAVIAN ARTERY, BUT COLLATERAL CIRCULATION FEEDS BRACHIAL ARTERY ON LEFT. (5) Anxiety Chronic F41.9 - ANXIETY DISORDER, UNSPECIFIED Comment/Plan: Continue home medications (6) DDD (degenerative disc disease), lumbosacral Chronic M51.37 - OTHER INTERVERTEBRAL DISC DEGENERATION, LUMBOSACRAL REGION Comment/Plan: Back pain under control (7) Hypertension Chronic I10 - ESSENTIAL (PRIMARY) HYPERTENSION Qualifiers: Qualified Code(s): I10 - Essential (primary) hypertension Comment/Plan: Continue medications - Plan 1. Acute exacerbation of chronic obstructive airways disease. Continue nebulizers antibiotics etc. 2. Acute respiratory failure with hypoxia and hypercarbia: continue current plan and try to maximize oxygenation. 3. Occlusion of left subclavian artery: noted. 4. CHRONIC OBSTRUCTIVE PULMONARY DISEASE: Continue pulmonary toilet improve oxygenation and recheck ambulating O2 sat in a.m.. 5. anxiety disorder: continue home medications. Proper 6. Degenerative disc disease: back pain under control. 7. Hypertension: continue home medications. Disposition Plan: Likely home when exacerbation improved Case Care Discussed with: Patient, Nursing Staff Education/Counseling Given To: Patient Education/Counseling Given Regarding: Diagnosis, Treatment, Prognosis, Follow Up , Disposition Plan Total Time: 45 minutes Critical Care: No Couseling Time (>50% in counseling/coordination): No
[2016-08-12] MEDS: NICOTINE 21 MG PATCH TOP SCH ×2 (00:47→23:10)
[2016-08-12] MEDS: METHYLPREDNISOLONE 125 MG/2 ML VIAL IV SCH ×4 (01:04→21:42)
[2016-08-12] MEDS: OXYCODONE HCL 5 MG TABLET PO PRN ×3 (01:54→17:55)
[2016-08-12] MEDS: Albuterol/Ipratropium Neb 3 ML NEB NEB SCH ×4 (02:21→20:05)
[2016-08-12] MEDS: SODIUM CHLORIDE 0.9% 3 ML FLUSH FLUSH SCH ×2 (04:32→17:21)
[2016-08-12] MEDS: FLUTICASONE PROPIONATE 16 GM BOT NAS SCH ×2 (09:07→21:44)
[2016-08-12] MEDS: ATORVASTATIN 10 MG TAB PO SCH (09:08)
[2016-08-12] MEDS: LISINOPRIL 20 MG TAB PO SCH (09:08)
[2016-08-12] MEDS: MONTELUKAST SODIUM 10 MG TAB PO SCH (09:08)
[2016-08-12] MEDS: ALPRAZOLAM 0.5 MG TAB PO PRN (09:55)
--- NOTE | 2016-08-12 10:01 | PCM.PULM ---
Chief Complaint: patient had uneventful overnight. Breathing is slowly improving. Still gets desaturated and dyspneic with a little activities in room. Current complaints:dyspnea, BUSCH,cough, wheeze, sputum. Current medication list and notes reviewed:yes, Events from last night noted and discussed with Clinical Staff - Physical Examination Vital Signs and I&O: Last Vital Signs Temp 97.6 F 08/12/16 06:00 Pulse 107 08/12/16 07:21 Resp 20 08/12/16 07:21 BP 132/85 08/12/16 06:00 Pulse Ox 98 08/12/16 07:21 Oxygen Pulse Oxygen Saturation 98 O2 Device Nasal Cannula Oxygen Flow Rate 2 Fraction of Inspired Oxygen ( FIO2) Intake & Output 08/09/16 08/10/16 08/11/16 08/12/16 23:59 23:59 23:59 23:59 Intake Total 1897 3399 2880 1194 Output Total 2250 2650 1600 1275 Balance -480 895 3975 -81 Patient's weight 59.647 kg 60.413 kg 60.81 kg 61.689 kg General: Alert, Oriented x3, Cooperative, No acute distress, Fatigue Respiratory: Diminished, Wheezes (improved) Cardiovascular: Regular rate, Regular rate and rhythm, Normal S1, No Gallops, Rubs/Murmurs, Normal S2 GI: Normal bowel sounds, Soft, Non tender, No hepatospenomegaly, No masses Extremities/Musculoskeletal: Normal pulses Skin: Warm,Dry and Intact, No rashes, No breakdown, No significant lesion Neurological: Normal Steady Gait, Normal speech, Strength at 5/5 X4 ext, Cranial nerves 3-12 NL Psych/Mental Status: Appropriate, Anxious Result Diagrams: 08/10/16 07:17 08/10/16 07:17 Labs (last 24 hours): Laboratory Results - last 24 hr 08/11/16 18:08 POC Capillary Glucose 269 H Lab/DI/Studies Reviewed: Medications Methylprednisolone Sodium Succinate (Solu-Medrol) 60 mg IV Q6H [facility] Stop: 08/19/16 16:59 Last Admin: 08/06/16 08:41 Dose: 60 mg Promethazine HCl (Phenergan) 12.5 mg IV Q6H PRN; Protocol PRN Reason: Nausea/Vomiting - Alternative Stop: 08/18/16 16:59 Acetaminophen (Tylenol Suppository) 650 mg [place] Q6H PRN; Protocol PRN Reason: Mild Pain or Fever above 100.4 Stop: 08/18/16 16:59 Acetaminophen (Tylenol Tablet) 650 mg PO Q6H PRN; Protocol PRN Reason: Mild Pain or Fever above 100.4 Stop: 08/18/16 16:59 Albuterol/Ipratropium (Duoneb) 3 ml NEB Q2H PRN PRN Reason: Wheezing Stop: 08/18/16 16:59 Last Admin: 08/05/16 11:48 Dose: 3 ml Albuterol/Ipratropium (Duoneb) 3 ml NEB RTQ6 [facility] Stop: 08/18/16 16:59 Last Admin: 08/06/16 07:28 Dose: 3 ml Alprazolam (Xanax) 0.5 mg PO BID PRN PRN Reason: Anxiety Stop: 08/18/16 21:34 Atorvastatin Calcium (Lipitor) 10 mg PO DAILY [facility] Stop: 08/19/16 08:59 Last Admin: 08/06/16 08:42 Dose: 10 mg Benzonatate (Tessalon) 200 mg PO Q8H PRN PRN Reason: Cough - First Option Stop: 08/18/16 16:59 Ceftriaxone Sodium 1 gm/ (Dextrose) 100 mls @ 100 mls/hr IV Q24H [facility] Stop: 08/12/16 13:59 Last Admin: 08/05/16 13:45 Dose: 100 mls/hr Lisinopril (Zestril) 20 mg PO DAILY [facility] Stop: 08/19/16 08:59 Last Admin: 08/06/16 08:42 Dose: 20 mg Montelukast Sodium (Singulair) 10 mg PO DAILY [facility] Stop: 08/19/16 08:59 Last Admin: 08/06/16 08:42 Dose: 10 mg Nicotine (Nicoderm) 21 mg TOP Q24H [facility] Stop: 08/19/16 00:59 Last Admin: 08/05/16 23:19 Dose: Not Given Ondansetron HCl (Zofran) 4 mg IV Q6H PRN PRN Reason: Nausea/Vomiting - First [facility] Stop: 08/18/16 16:59 Senna/Docusate Sodium (Senokot S Or Jade Colace) 1 tab PO BID PRN PRN Reason: Constipation - First Option Stop: 08/18/16 16:59 Simethicone (Mylicon, Mylanta Gas) 80 mg PO Q3H PRN PRN Reason: Intestinal Gas Stop: 08/18/16 16:59 Sodium Chloride (Normal Saline) 1,000 mls @ 100 mls/hr IV Q24H [facility] Stop: 08/18/16 16:59 Last Admin: 08/05/16 20:30 Dose: 100 mls/hr Temazepam (Restoril) 15 mg PO HS PRN PRN Reason: Sleep or Insomnia Stop: 08/18/16 16:59 Fluticasone Propionate (Flonase Nasal [place]) 1 sprays MARGARITA BID Stop: 08/09/16 12:10 Azithromycin 500 mg/ Dextrose 250 mls @ 250 mls/hr IV Q24H [facility] Stop: 08/15/16 18:00 Last Admin: 08/11/16 15:45 Dose: 250 mls/hr Oxycodone HCl (Oxycodone Immediate Release (Oxyir)) 10 mg PO Q8H PRN PRN Reason: MODERATE TO SEVERE PAIN Stop: 08/19/16 01:42 Last Admin: 08/12/16 09:56 Dose: 10 mg - Assessment/Plan (1) Acute respiratory failure with hypoxia and hypercarbia Acute J96.01 - ACUTE RESPIRATORY FAILURE WITH HYPOXIA; J96.02 - ACUTE RESPIRATORY FAILURE WITH HYPERCAPNIA Comment/Plan: Overall the patient's improvement has been slow. Would continue IV steroids,IV antibiotics, duo nebulizer treatment, supplemental oxygen, DVT/GI prophylaxis. Continue his other care and patient has guarded long-term prognosis . I would start aggressive diuresis to see if that would help him as the chest x-ray shows possible pulmonary vascular congestion would repeat a chest x-ray and a blood gas CBC and BMP in the morning I had a prolonged discussion with the patient's regarding hospice care I would discuss this topic again with him tomorrow (2) Acute exacerbation of chronic obstructive airways disease Acute J44.1 - CHRONIC OBSTRUCTIVE PULMONARY DISEASE W (ACUTE) EXACERBATION Comment/Plan: Improving slowly. Would continue current therapy with IV steroids, IV antibiotics, Duo neb treatment and supplemental oxygen. Will get an ABG and cxray in the morning. Would continue full supportive care. (3) Anxiety Chronic F41.9 - ANXIETY DISORDER, UNSPECIFIED Comment/Plan: stable. Continue Xanax prn I personally saw and evaluated the patient.: Yes Case Care Discussed with: Patient Education/Counseling Given To: Patient Education/Counseling Given Regarding: Diagnosis, Treatment, Prognosis, Follow Up , Disposition Plan
[2016-08-12] MEDS: NS 1,000 ML IV SCH ×2 (10:44→23:09)
--- NOTE | 2016-08-12 13:24 | GENMEDPROG ---
Chief Complaint: Very short of breath Subjective Note: Patient truly making little if any progress this hospitalization. Today after 8 days of hospitalization patient remains extraordinarily short of breath and he desaturated significantly when he tried to get up to the bedside commode. Notes Reviewed: Yes Events from last night noted and discussed with Clinical Staff Current Medication List: Reviewed Currently: Reports: Cough, SOB, Tobacco Use/Hx (Former). Denies: Sputum DVT Prophylaxis: Yes - Physical Examination Vital Signs and I&O: Last Vital Signs Temp 97.6 F 08/12/16 06:00 Pulse 107 08/12/16 07:21 Resp 20 08/12/16 07:21 BP 132/85 08/12/16 06:00 Pulse Ox 98 08/12/16 07:21 Oxygen Pulse Oxygen Saturation 98 O2 Device Nasal Cannula Oxygen Flow Rate 2 Fraction of Inspired Oxygen ( FIO2) Intake & Output 08/09/16 08/10/16 08/11/16 08/12/16 23:59 23:59 23:59 23:59 Intake Total 1897 3399 2880 1434 Output Total 2250 2650 1600 1425 Balance -347 005 0775 9 Patient's weight 59.647 kg 60.413 kg 60.81 kg 61.689 kg General: Alert, Oriented x3, No acute distress, Well appearing, Well nourished HEENT: Normal (Normocephalic, atraumatic;EOMI.Sclera white, Nares patent, without discharge or bleeding. No oropharyngeal lesions or erythema. Mucous membranes are dry.) Neck: Non-tender, Full range of motion, Normal Trachea alignment, Normal inspection (No cervical lymphadenopathy. No supraclavicular lymphadenopathy.), No Masses palpable, Supple Lymphatics: Normal (No lymph node swelling or pain.) Respiratory: Accessory Muscle Use, Rhonchi, Wheezes (bilateral, very tight) Cardiovascular: Regular rate and rhythm (No bradycardia or tachycardia), Normal S1, No Gallops,Rubs/Murmurs, Normal S2, Good Pedal Pulses (DP pulses 2+ bilaterally) GI: Normal bowel sounds (normal active sounds), Soft (non-distended), Non tender , No hepatospenomegaly, No masses Extremities/Musculoskeletal: Normal pulses (DP pulses 2+ bilaterally) Skin: Warm,Dry and Intact, No rashes, No significant lesion Neurological: Strength at 5/5 X4 ext (Motor 5/5 throughout.), Normal tone, Cranial nerves 3-12 NL ( 2-12 grossly intact.) Psych/Mental Status: Appropriate, Normal Affect Lab/DI/Studies Reviewed: Abnormal Lab Results 08/11/16 18:08 POC Capillary Glucose 269 H - Assessment (1) Acute exacerbation of chronic obstructive airways disease Comment/Plan: Continue nebulizers antibiotics etc. Were not appearing to get anywhere at this point. I believe hospice care would be appropriate for this patient. He has a long and good relationship with Dr. Mccormick therefore I will ask Dr. Mccormick to discuss hospice care with him. (2) Acute respiratory failure with hypoxia and hypercarbia Acute J96.01 - ACUTE RESPIRATORY FAILURE WITH HYPOXIA; J96.02 - ACUTE RESPIRATORY FAILURE WITH HYPERCAPNIA (3) COPD (chronic obstructive pulmonary disease) with acute bronchitis Acute J44.0 - CHRONIC OBSTRUCTIVE PULMON DISEASE W ACUTE LOWER RESP INFCT Comment/Plan: Continue present care. 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 (5) Anxiety Chronic F41.9 - ANXIETY DISORDER, UNSPECIFIED Comment/Plan: Continue home medications (6) DDD (degenerative disc disease), lumbosacral Chronic M51.37 - OTHER INTERVERTEBRAL DISC DEGENERATION, LUMBOSACRAL REGION Comment/Plan: Back pain under control (7) Hypertension Chronic I10 - ESSENTIAL (PRIMARY) HYPERTENSION Qualifiers: Hypertension type: essential hypertension Qualified Code(s): I10 - Essential (primary) hypertension Comment/Plan: Continue medications - Plan Patient needs to have a hospice discussion with Dr. Mccormick. He does not appear to be open when I have tried to discuss it with him in recent days. Disposition Plan: Likely home when exacerbation improved Case Care Discussed with: Patient, Consultants Education/Counseling Given To: Patient Education/Counseling Given Regarding: Diagnosis, Treatment, Prognosis, Follow Up Total Time: 45 minutes Critical Care: No Couseling Time (>50% in counseling/coordination): No
[2016-08-12] MEDS: CEFTRIAXONE 1 GM in D5W 100 ML IV SCH (14:02)
[2016-08-12] MEDS: AZITHROMYCIN 500 MG in D5W 250 ML IV SCH (15:32)
[2016-08-12] MEDS: Albuterol/Ipratropium Neb 3 ML NEB NEB PRN ×2 (17:30→23:42)
[2016-08-12] MEDS: BENZONATATE 100 MG PERLES PO PRN (21:42)
--- NOTE | 2016-08-12 21:59 | DIRPT ---
CLINICAL DATA: 60-year-old male with a history of respiratory failure. EXAM: PORTABLE CHEST 1 VIEW COMPARISON: 08/10/2016, 08/07/2016 FINDINGS: Cardiomediastinal silhouette unchanged. Atherosclerotic calcification of the aortic arch. Stigmata of emphysema, with increased retrosternal airspace, flattened hemidiaphragms, increased AP diameter, and hyperinflation on the AP view. Linear opacities the bilateral lung bases, new from the comparison. Coarsened interstitial markings. No pleural effusion. No pneumothorax. Mild peribronchial thickening centrally. No displaced fracture. IMPRESSION: Changes of advanced emphysema, with new linear opacities at the lung bases, favored to represent atelectasis. Superimposed acute on chronic bronchitis difficult to exclude. Signed, Jez Rodriguez, [facility] Electronically Signed By: Jez Rodriguez D.O. On: 08/12/2016 21:57
[2016-08-13] MEDS: Albuterol/Ipratropium Neb 3 ML NEB NEB SCH ×4 (01:56→19:46)
[2016-08-13] MEDS: OXYCODONE HCL 5 MG TABLET PO PRN ×3 (01:56→18:50)
[2016-08-13] MEDS: METHYLPREDNISOLONE 125 MG/2 ML VIAL IV SCH ×4 (01:56→20:35)
[2016-08-13] MEDS: SODIUM CHLORIDE 0.9% 3 ML FLUSH FLUSH SCH ×2 (04:03→15:32)
[2016-08-13 05:27] LABS: ALLEN'S TEST PASS; BEb 8.4 (+/- 2); TCO2 36.6 MMOL/L (23-27)
[2016-08-13 05:41] LABS: ABG Draw Site Left Radial; MODE NC RATE
[2016-08-13 06:21] LABS: MPV 8.8 fL (7.4-10.4)
[2016-08-13 06:31] LABS: BLOOD UREA NITROGEN 26 MG/DL (9-20); CALCIUM 8.3 MG/DL (8.4-10.2); CALCULATED OSMOLALITY 277 MOs/Kg (270-290); CHLORIDE 97 mEq/L (98-107); GLUCOSE 207 MG/DL (70-99); SODIUM LEVEL 138 mEq/L (137-146)
[2016-08-13 07:35] LABS: SEG NEUTROPHIL 84 % (45-76); TOTAL CELL COUNT 100
[2016-08-13] MEDS: NS 1,000 ML IV SCH ×3 (08:07→20:59)
[2016-08-13] MEDS: BENZONATATE 100 MG PERLES PO PRN (08:07)
[2016-08-13] MEDS: FLUTICASONE PROPIONATE 16 GM BOT NAS SCH ×2 (08:08→20:58)
[2016-08-13] MEDS: FUROSEMIDE 40 MG/4 ML VIAL IV SCH ×2 (08:08→15:10)
[2016-08-13] MEDS: MONTELUKAST SODIUM 10 MG TAB PO SCH (08:09)
[2016-08-13] MEDS: LISINOPRIL 20 MG TAB PO SCH (08:09)
[2016-08-13] MEDS: ATORVASTATIN 10 MG TAB PO SCH (08:09)
--- NOTE | 2016-08-13 09:16 | PCM.PULM ---
Chief Complaint: Uneventful overnight patient has been feeling somewhat better today Current complaints: Dyspnea, BUSCH,cough,wheeze Current medication list reviewed:yes Notes reviewed: yes, Events from last night noted and discussed with Clinical Staff - Physical Examination Vital Signs and I&O: Last Vital Signs Temp 98.1 F 08/13/16 06:00 Pulse 91 08/13/16 06:00 Resp 20 08/13/16 06:00 BP 147/74 08/13/16 06:00 Pulse Ox 98 08/13/16 06:00 Oxygen Pulse Oxygen Saturation 98 O2 Device Nasal Cannula Oxygen Flow Rate 3.5 Fraction of Inspired Oxygen ( FIO2) Intake & Output 08/10/16 08/11/16 08/12/16 08/13/16 23:59 23:59 23:59 23:59 Intake Total 3399 2880 2968 1204 Output Total 2650 1600 2325 400 Balance 749 1280 643 804 Patient's weight 60.413 kg 60.81 kg 61.689 kg General: Alert, Oriented x3, No acute distress, Fatigue Respiratory: Diminished, Wheezes Cardiovascular: Regular rate, Regular rate and rhythm, Normal S1, No Gallops, Rubs/Murmurs, Normal S2 GI: Normal bowel sounds, Soft, Non tender, No hepatospenomegaly, No masses Extremities/Musculoskeletal: Normal pulses Skin: Warm,Dry and Intact, No rashes, No breakdown Neurological: Normal Steady Gait, Normal speech, Strength at 5/5 X4 ext, Normal tone, Cranial nerves 3-12 NL Psych/Mental Status: Normal Affect, Cooperative Result Diagrams: 08/13/16 05:35 08/13/16 05:35 Labs (last 24 hours): Laboratory Results - last 24 hr 08/13/16 08/13/16 08/13/16 05:15 05:35 05:35 WBC 21.0 H RBC 3.93 L Hgb 11.8 L Hct 35.6 L MCV 91 MCH 30.0 MCHC 33.1 RDW 13.0 Plt Count 237 MPV 8.8 Neut % (Auto) Cancelled Lymph % (Auto) Cancelled [place] % (Auto) Cancelled Eos % (Auto) Cancelled Baso % (Auto) Cancelled Absolute Neuts (auto) Cancelled Absolute Lymphs (auto) Cancelled Seg Neuts % (Manual) 84 H Band Neutrophils % 4 Lymphocytes % (Manual) 4 L Monocytes % (Manual) 8 Absolute Neutrophils 18.48 H Absolute Lymphocytes 0.84 Platelet Estimate Norm RBC Morphology Norm Puncture Site Left radial pH 7.410 pCO2 55.0 H pO2 82.0 HCO3 34.9 H Total CO2 36.6 H Base Excess 8.4 H Vent Mode Nc FiO2 % 2.5lpm Specimen Drawn By Canlar Sodium 138 Potassium 3.8 Chloride 97 L Carbon Dioxide 35 H Anion Gap 10 BUN 26 H Creatinine 0.60 L Estimated GFR (MDRD) > 60 Glucose 207 H Calculated Osmolality 277 Calcium 8.3 L Lab/DI/Studies Reviewed: Medications Azithromycin 500 mg/ Dextrose 250 mls @ 250 mls/hr IV Q24H REPLACED BY [facility] Stop: 08/15/16 18:00 Last Admin: 08/11/16 15:45 Dose: 250 mls/hr Oxycodone HCl (Oxycodone Immediate Release (Oxyir)) 10 mg PO Q8H PRN PRN Reason: MODERATE TO SEVERE PAIN Stop: 08/19/16 01:42 Last Admin: 08/12/16 09:56 Dose: 10 mg Furosemide (Lasix) 40 mg IV LASBID REPLACED BY [facility] Stop: 08/26/16 16:59 Last Admin: 08/13/16 08:08 Dose: 40 mg Methylprednisolone Sodium Succinate (Solu-Medrol) 60 mg IV Q6H REPLACED BY [facility] Stop: 08/19/16 16:59 Last Admin: 08/06/16 08:41 Dose: 60 mg Oxycodone HCl (Oxycodone Immediate Release (Oxyir)) 10 mg PO Q8H PRN PRN Reason: Pain Stop: 08/11/16 21:34 Last Admin: 08/06/16 06:47 Dose: 10 mg Promethazine HCl (Phenergan) 12.5 mg IV Q6H PRN; Protocol PRN Reason: Nausea/Vomiting - Alternative Stop: 08/18/16 16:59 Acetaminophen (Tylenol Suppository) 650 mg VA Q6H PRN; Protocol PRN Reason: Mild Pain or Fever above 100.4 Stop: 08/18/16 16:59 Acetaminophen (Tylenol Tablet) 650 mg PO Q6H PRN; Protocol PRN Reason: Mild Pain or Fever above 100.4 Stop: 08/18/16 16:59 Albuterol/Ipratropium (Duoneb) 3 ml NEB Q2H PRN PRN Reason: Wheezing Stop: 08/18/16 16:59 Last Admin: 08/05/16 11:48 Dose: 3 ml Albuterol/Ipratropium (Duoneb) 3 ml NEB RTQ6 REPLACED BY [facility] Stop: 08/18/16 16:59 Last Admin: 08/06/16 07:28 Dose: 3 ml Alprazolam (Xanax) 0.5 mg PO BID PRN PRN Reason: Anxiety Stop: 08/18/16 21:34 Atorvastatin Calcium (Lipitor) 10 mg PO DAILY REPLACED BY [facility] Stop: 08/19/16 08:59 Last Admin: 08/06/16 08:42 Dose: 10 mg Benzonatate (Tessalon) 200 mg PO Q8H PRN PRN Reason: Cough - First Option Stop: 08/18/16 16:59 Ceftriaxone Sodium 1 gm/ (Dextrose) 100 mls @ 100 mls/hr IV Q24H REPLACED BY [facility] Stop: 08/12/16 13:59 Last Admin: 08/05/16 13:45 Dose: 100 mls/hr Lisinopril (Zestril) 20 mg PO DAILY REPLACED BY [facility] Stop: 08/19/16 08:59 Last Admin: 08/06/16 08:42 Dose: 20 mg Montelukast Sodium (Singulair) 10 mg PO DAILY REPLACED BY [facility] Stop: 08/19/16 08:59 Last Admin: 08/06/16 08:42 Dose: 10 mg Nicotine (Nicoderm) 21 mg TOP Q24H REPLACED BY [facility] Stop: 08/19/16 00:59 Last Admin: 08/05/16 23:19 Dose: Not Given Ondansetron HCl (Zofran) 4 mg IV Q6H PRN PRN Reason: Nausea/Vomiting - First Option Stop: 08/18/16 16:59 Senna/Docusate Sodium (Senokot S Or Jade Colace) 1 tab PO BID PRN PRN Reason: Constipation - First Option Stop: 08/18/16 16:59 Simethicone (Mylicon, Mylanta Gas) 80 mg PO Q3H PRN PRN Reason: Intestinal Gas Stop: 08/18/16 16:59 Sodium Chloride (Normal Saline) 1,000 mls @ 100 mls/hr IV Q24H REPLACED BY [facility] Stop: 08/18/16 16:59 Last Admin: 08/05/16 20:30 Dose: 100 mls/hr Temazepam (Restoril) 15 mg PO HS PRN PRN Reason: Sleep or Insomnia Stop: 08/18/16 16:59 Fluticasone Propionate (Flonase Nasal [place]) 1 sprays MARGARITA BID Stop: 08/09/16 12:10 - Assessment/Plan (1) Acute respiratory failure with hypoxia and hypercarbia Acute J96.01 - ACUTE RESPIRATORY FAILURE WITH HYPOXIA; J96.02 - ACUTE RESPIRATORY FAILURE WITH HYPERCAPNIA Comment/Plan: Very slow movement in clinical condition however patient has been in negative fluid balance in the past 24 hours and has been feeling somewhat better I would continue Lasix on this patient , continue IV steroids,IV antibiotics, duo nebulizer treatment, supplemental oxygen, DVT/GI prophylaxis. Continue his other care and patient has guarded long-term prognosis . I had a prolonged discussion with the patient's regarding hospice care I would discuss this topic again with him in future (2) Acute exacerbation of chronic obstructive airways disease Acute J44.1 - CHRONIC OBSTRUCTIVE PULMONARY DISEASE W (ACUTE) EXACERBATION Comment/Plan: No change in treatment, Improving slowly. Would continue current therapy with IV steroids, IV antibiotics, Duo neb treatment and supplemental oxygen. Will get an ABG and cxray in the morning. Would continue full supportive care. (3) Anxiety Chronic F41.9 - ANXIETY DISORDER, UNSPECIFIED Comment/Plan: stable. Continue Xanax prn I personally saw and evaluated the patient.: Yes Case Care Discussed with: Patient Education/Counseling Given To: Patient Education/Counseling Given Regarding: Diagnosis, Treatment, Prognosis, Follow Up , Disposition Plan
[2016-08-13] MEDS: Albuterol/Ipratropium Neb 3 ML NEB NEB PRN (11:05)
[2016-08-13] MEDS: CEFTRIAXONE 1 GM in D5W 100 ML IV SCH (13:32)
[2016-08-13] MEDS: AZITHROMYCIN 500 MG in D5W 250 ML IV SCH (15:10)
--- NOTE | 2016-08-13 16:01 | GENMEDPROG ---
Chief Complaint: sob sl better coughing up white phlegm Notes Reviewed: Yes Events from last night noted and discussed with Clinical Staff Current Medication List: Reviewed Currently: Reports: Cough, SOB, Tobacco Use/Hx (Former). Denies: Sputum DVT Prophylaxis: Yes - Physical Examination Vital Signs and I&O: Last Vital Signs Temp 98.8 F 08/13/16 14:05 Pulse 104 08/13/16 14:05 Resp 17 08/13/16 14:05 BP 119/84 08/13/16 14:05 Pulse Ox 91 08/13/16 14:05 Oxygen Pulse Oxygen Saturation 91 O2 Device Nasal Cannula Oxygen Flow Rate 2.5 Fraction of Inspired Oxygen ( FIO2) Intake & Output 08/10/16 08/11/16 08/12/16 08/13/16 23:59 23:59 23:59 23:59 Intake Total 3399 2880 2968 1684 Output Total 2650 1600 2325 2800 Balance 749 1280 643 -1116 Patient's weight 60.413 kg 60.81 kg 61.689 kg General: Alert, Oriented x3, No acute distress, Well appearing, Well nourished HEENT: Normal (Normocephalic, atraumatic;EOMI.Sclera white, Nares patent, without discharge or bleeding. No oropharyngeal lesions or erythema. Mucous membranes are dry.) Neck: Non-tender, Full range of motion, Normal Trachea alignment, Normal inspection (No cervical lymphadenopathy. No supraclavicular lymphadenopathy.), No Masses palpable, Supple Lymphatics: Normal (No lymph node swelling or pain.) Respiratory: Accessory Muscle Use, Rhonchi, Wheezes (bilateral, very tight) Cardiovascular: Regular rate and rhythm (No bradycardia or tachycardia), Normal S1, No Gallops,Rubs/Murmurs, Normal S2, Good Pedal Pulses (DP pulses 2+ bilaterally) GI: Normal bowel sounds (normal active sounds), Soft (non-distended), Non tender , No hepatospenomegaly, No masses Extremities/Musculoskeletal: Normal pulses (DP pulses 2+ bilaterally) Skin: Warm,Dry and Intact, No rashes, No significant lesion Neurological: Strength at 5/5 X4 ext (Motor 5/5 throughout.), Normal tone, Cranial nerves 3-12 NL ( 2-12 grossly intact.) Psych/Mental Status: Appropriate, Normal Affect Lab/DI/Studies Reviewed: 08/13/16 05:35 08/13/16 05:35 Laboratory Results - last 24 hr 08/13/16 08/13/16 08/13/16 05:15 05:35 05:35 WBC 21.0 H RBC 3.93 L Hgb 11.8 L Hct 35.6 L MCV 91 MCH 30.0 MCHC 33.1 RDW 13.0 Plt Count 237 MPV 8.8 Neut % (Auto) Cancelled Lymph % (Auto) Cancelled [place] % (Auto) Cancelled Eos % (Auto) Cancelled Baso % (Auto) Cancelled Absolute Neuts (auto) Cancelled Absolute Lymphs (auto) Cancelled Seg Neuts % (Manual) 84 H Band Neutrophils % 4 Lymphocytes % (Manual) 4 L Monocytes % (Manual) 8 Absolute Neutrophils 18.48 H Absolute Lymphocytes 0.84 Platelet Estimate Norm RBC Morphology Norm Puncture Site Left radial pH 7.410 pCO2 55.0 H pO2 82.0 HCO3 34.9 H Total CO2 36.6 H Base Excess 8.4 H Vent Mode Nc FiO2 % 2.5lpm Specimen Drawn By Canlar Sodium 138 Potassium 3.8 Chloride 97 L Carbon Dioxide 35 H Anion Gap 10 BUN 26 H Creatinine 0.60 L Estimated GFR (MDRD) > 60 Glucose 207 H Calculated Osmolality 277 Calcium 8.3 L - Assessment (1) Acute respiratory failure with hypoxia and hypercarbia Acute J96.01 - ACUTE RESPIRATORY FAILURE WITH HYPOXIA; J96.02 - ACUTE RESPIRATORY FAILURE WITH HYPERCAPNIA Comment/Plan: Continuing to maximize oxygenation as best able. (2) COPD (chronic obstructive pulmonary disease) with acute bronchitis Acute J44.0 - CHRONIC OBSTRUCTIVE PULMON DISEASE W ACUTE LOWER RESP INFCT Comment/Plan: Continue present care. (3) Hyperlipidemia Chronic E78.5 - HYPERLIPIDEMIA, UNSPECIFIED Qualifiers: Hyperlipidemia type: unspecified Qualified Code(s): E78.5 - Hyperlipidemia , unspecified Comment/Plan: Continue home medications (4) Hypertension Chronic I10 - ESSENTIAL (PRIMARY) HYPERTENSION Qualifiers: Hypertension type: essential hypertension Qualified Code(s): I10 - Essential (primary) hypertension Comment/Plan: Continue medications (5) Emphysema lung Chronic J43.9 - EMPHYSEMA, UNSPECIFIED Qualifiers: Emphysema type: centrilobular Qualified Code(s): J43.2 - Centrilobular emphysema Disposition Plan: Likely home when exacerbation improved Case Care Discussed with: Patient, Nursing Staff, Resource Management Education/Counseling Given To: Patient Education/Counseling Given Regarding: Diagnosis Total Time: 38 min Critical Care: No Code: 69429 (12+)
[2016-08-13] MEDS: PROBIOTIC BLEND TAB PO SCH (18:27)
[2016-08-14] MEDS: NICOTINE 21 MG PATCH TOP SCH (01:02)
[2016-08-14] MEDS: Albuterol/Ipratropium Neb 3 ML NEB NEB SCH ×4 (02:47→19:40)
[2016-08-14] MEDS: OXYCODONE HCL 5 MG TABLET PO PRN ×3 (02:57→19:29)
[2016-08-14] MEDS: METHYLPREDNISOLONE 125 MG/2 ML VIAL IV SCH ×2 (02:58→08:04)
[2016-08-14] MEDS: SODIUM CHLORIDE 0.9% 3 ML FLUSH FLUSH SCH ×2 (04:35→16:21)
[2016-08-14 05:22] LABS: ALLEN'S TEST PASS; BEb 15.2 (+/- 2); TCO2 43.8 MMOL/L (23-27)
[2016-08-14 05:26] LABS: ABG Draw Site Right Radial
[2016-08-14 05:54] LABS: BLOOD UREA NITROGEN 33 MG/DL (9-20); CALCIUM 8.4 MG/DL (8.4-10.2); CALCULATED OSMOLALITY 280 MOs/Kg (270-290); CHLORIDE 92 mEq/L (98-107); GLUCOSE 186 MG/DL (70-99); SODIUM LEVEL 139 mEq/L (137-146)
[2016-08-14 05:57] LABS: MPV 8.9 fL (7.4-10.4)
--- NOTE | 2016-08-14 07:47 | DIRPT ---
CLINICAL DATA: Respiratory failure. EXAM: PORTABLE CHEST 1 VIEW COMPARISON: 08/12/2016. FINDINGS: Mediastinum hilar structures normal. Interim clearing of basilar atelectasis. Calcified pulmonary nodules noted bilateral consistent granulomas. No pneumothorax . Cardiomegaly. No acute bony abnormality . IMPRESSION: No acute cardiopulmonary disease. Interim clearing of basilar atelectasis. Calcified pulmonary nodules consistent with old granulomas again noted. Electronically Signed By: Angel Montaño On: 08/14/2016 07:44
[2016-08-14 07:55] LABS: SEG NEUTROPHIL 93 % (45-76)
[2016-08-14] MEDS: FLUTICASONE PROPIONATE 16 GM BOT NAS SCH ×2 (08:04→21:34)
[2016-08-14] MEDS: FUROSEMIDE 40 MG/4 ML VIAL IV SCH ×2 (08:04→16:21)
[2016-08-14] MEDS: MONTELUKAST SODIUM 10 MG TAB PO SCH (08:05)
[2016-08-14] MEDS: ATORVASTATIN 10 MG TAB PO SCH (08:05)
[2016-08-14] MEDS: LISINOPRIL 20 MG TAB PO SCH (08:05)
[2016-08-14] MEDS: PROBIOTIC BLEND TAB PO SCH ×2 (11:25→16:21)
[2016-08-14] MEDS: Albuterol/Ipratropium Neb 3 ML NEB NEB PRN ×2 (11:28→16:43)
--- NOTE | 2016-08-14 13:41 | PCM.PULM ---
Chief Complaint: Patient had uneventful overnight. Breathing is a little better today, has been up to chair. Still has SOB,BUSCH,desaturation,cough,chest congestions, wheeze. Current medication list reviewed:yes Notes reviewed:yes, Events from last night noted and discussed with Clinical Staff DVT prophylaxis:yes - Physical Examination Vital Signs and I&O: Last Vital Signs Temp 97.8 F 08/14/16 13:13 Pulse 107 08/14/16 13:13 Resp 20 08/14/16 13:13 BP 122/77 08/14/16 13:13 Pulse Ox 91 08/14/16 13:13 Oxygen Pulse Oxygen Saturation 91 O2 Device Nasal Cannula Oxygen Flow Rate 2 Fraction of Inspired Oxygen ( FIO2) Intake & Output 08/11/16 08/12/16 08/13/16 08/14/16 23:59 23:59 23:59 23:59 Intake Total 2880 2968 3068 1789 Output Total 1600 2325 4850 2900 Balance 1280 643 -1782 -1111 Patient's weight 60.81 kg 61.689 kg 61.462 kg General: Alert, Oriented x3, Cooperative, No acute distress, Fatigue (improved) Respiratory: Diminished (bilaterally), Rhonchi, Wheezes Cardiovascular: Regular rate, Regular rate and rhythm, Normal S1, No Gallops, Rubs/Murmurs, Normal S2 GI: Normal bowel sounds, Soft, Non tender, No hepatospenomegaly, No masses Extremities/Musculoskeletal: Normal pulses Skin: Warm,Dry and Intact, No rashes, No breakdown, No significant lesion Neurological: Normal Steady Gait, Normal speech, Strength at 5/5 X4 ext, Cranial nerves 3-12 NL, Reflexes 2+ Psych/Mental Status: Appropriate Result Diagrams: 08/14/16 04:45 08/14/16 04:45 Labs (last 24 hours): Laboratory Results - last 24 hr 08/14/16 08/14/16 08/14/16 04:45 04:45 04:58 WBC 19.4 H RBC 4.13 L Hgb 12.3 L Hct 37.4 L MCV 91 MCH 29.8 MCHC 32.9 L RDW 13.2 Plt Count 220 MPV 8.9 Neut % (Auto) Cancelled Lymph % (Auto) Cancelled [place] % (Auto) Cancelled Eos % (Auto) Cancelled Baso % (Auto) Cancelled Absolute Neuts (auto) Cancelled Absolute Lymphs (auto) Cancelled Seg Neuts % (Manual) 93 H Band Neutrophils % 2 Lymphocytes % (Manual) 2 L Monocytes % (Manual) 3 Absolute Neutrophils 18.43 H Absolute Lymphocytes 0.39 L Platelet Estimate Norm RBC Morphology 1+ poik Puncture Site Right radial pH 7.460 H pCO2 59.0 H pO2 64.0 L HCO3 42.0 H Total CO2 43.8 H Base Excess 15.2 H FiO2 % 2.5l nc Specimen Drawn By Whitr Sodium 139 Potassium 3.3 L Chloride 92 L Carbon Dioxide 43 H Anion Gap 7 L BUN 33 H Creatinine 0.70 Estimated GFR (MDRD) > 60 Glucose 186 H Calculated Osmolality 280 Calcium 8.4 Lab/DI/Studies Reviewed: Cxray: 1 view Chest x-ray was seen personally patient has no acute infiltrate improving atelectasis and improving pulmonary vascular congestion is calcified granulomas are stable Medications: Azithromycin 500 mg/ Dextrose 250 mls @ 250 mls/hr IV Q24H [facility] Stop: 08/15/16 18:00 Last Admin: 08/11/16 15:45 Dose: 250 mls/hr Furosemide (Lasix) 40 mg IV LASBID [facility] Stop: 08/26/16 16:59 Last Admin: 08/13/16 08:08 Dose: 40 mg Oxycodone HCl (Oxycodone Immediate Release (Oxyir)) 10 mg PO Q8H PRN PRN Reason: Pain Stop: 08/11/16 21:34 Last Admin: 08/06/16 06:47 Dose: 10 mg Promethazine HCl (Phenergan) 12.5 mg IV Q6H PRN; Protocol PRN Reason: Nausea/Vomiting - Alternative Stop: 08/18/16 16:59 Acetaminophen (Tylenol Suppository) 650 mg SC Q6H PRN; Protocol PRN Reason: Mild Pain or Fever above 100.4 Stop: 08/18/16 16:59 Acetaminophen (Tylenol Tablet) 650 mg PO Q6H PRN; Protocol PRN Reason: Mild Pain or Fever above 100.4 Stop: 08/18/16 16:59 Albuterol/Ipratropium (Duoneb) 3 ml NEB Q2H PRN PRN Reason: Wheezing Stop: 08/18/16 16:59 Last Admin: 08/05/16 11:48 Dose: 3 ml Albuterol/Ipratropium (Duoneb) 3 ml NEB RTQ6 [facility] Stop: 08/18/16 16:59 Last Admin: 08/06/16 07:28 Dose: 3 ml Alprazolam (Xanax) 0.5 mg PO BID PRN PRN Reason: Anxiety Stop: 08/18/16 21:34 Atorvastatin Calcium (Lipitor) 10 mg PO DAILY [facility] Stop: 08/19/16 08:59 Last Admin: 08/06/16 08:42 Dose: 10 mg Benzonatate (Tessalon) 200 mg PO Q8H PRN PRN Reason: Cough - First Option Stop: 08/18/16 16:59 Ceftriaxone Sodium 1 gm/ (Dextrose) 100 mls @ 100 mls/hr IV Q24H [facility] Stop: 08/12/16 13:59 Last Admin: 08/05/16 13:45 Dose: 100 mls/hr Lisinopril (Zestril) 20 mg PO DAILY [facility] Stop: 08/19/16 08:59 Last Admin: 08/06/16 08:42 Dose: 20 mg Montelukast Sodium (Singulair) 10 mg PO DAILY [facility] Stop: 08/19/16 08:59 Last Admin: 08/06/16 08:42 Dose: 10 mg Nicotine (Nicoderm) 21 mg TOP Q24H [facility] Stop: 08/19/16 00:59 Last Admin: 08/05/16 23:19 Dose: Not Given Ondansetron HCl (Zofran) 4 mg IV Q6H PRN PRN Reason: Nausea/Vomiting - First Option Stop: 08/18/16 16:59 Senna/Docusate Sodium (Senokot S Or Jade Colace) 1 tab PO BID PRN PRN Reason: Constipation - First Option Stop: 08/18/16 16:59 Simethicone (Mylicon, Mylanta Gas) 80 mg PO Q3H PRN PRN Reason: Intestinal Gas Stop: 08/18/16 16:59 Temazepam (Restoril) 15 mg PO HS PRN PRN Reason: Sleep or Insomnia Stop: 08/18/16 16:59 Fluticasone Propionate (Flonase Nasal [place]) 1 sprays MARGARITA BID Stop: 08/09/16 12:10 Methylprednisolone Sodium Succinate (Solu-Medrol) 40 mg IV Q8H [facility] Stop: 08/28/16 16:59 - Assessment/Plan (1) Acute respiratory failure with hypoxia and hypercarbia Acute J96.01 - ACUTE RESPIRATORY FAILURE WITH HYPOXIA; J96.02 - ACUTE RESPIRATORY FAILURE WITH HYPERCAPNIA Comment/Plan: Continu diuresis, Very slow movement in clinical condition however patient has been in negative fluid balance in the past 24 hours and has been feeling somewhat better I would continue Lasix on this patient , continue IV steroids, IV antibiotics, duo nebulizer treatment, supplemental oxygen, DVT/GI prophylaxis. Continue his other care and patient has guarded long-term prognosis . I had a prolonged discussion with the patient's regarding hospice care I would discuss this topic again with him in future (2) Acute exacerbation of chronic obstructive airways disease Acute J44.1 - CHRONIC OBSTRUCTIVE PULMONARY DISEASE W (ACUTE) EXACERBATION Comment/Plan: No change in treatment, Improving slowly. Would continue current therapy with IV steroids, IV antibiotics, Duo neb treatment and supplemental oxygen. Will get an ABG and cxray in the morning. Would continue full supportive care. (3) Anxiety Chronic F41.9 - ANXIETY DISORDER, UNSPECIFIED Comment/Plan: stable. Continue Xanax prn
[2016-08-14] MEDS: NS 1,000 ML IV SCH ×2 (14:15→22:01)
[2016-08-14] MEDS: CEFTRIAXONE 1 GM in D5W 100 ML IV SCH (14:32)
[2016-08-14] MEDS ORDERED: METHYLPREDNISOLONE 40 MG/1 ML VIAL IV SCH (16:00)
[2016-08-14] MEDS: AZITHROMYCIN 500 MG in D5W 250 ML IV SCH (16:26)
--- NOTE | 2016-08-14 20:19 | GENMEDPROG ---
Chief Complaint: Patient desats easily with a short walk an states he feels very weak today Notes Reviewed: Yes Events from last night noted and discussed with Clinical Staff Current Medication List: Reviewed Currently: Reports: Cough, SOB, Tobacco Use/Hx (Former). Denies: Sputum DVT Prophylaxis: Yes - Physical Examination Vital Signs and I&O: Last Vital Signs Temp 97.8 F 08/14/16 13:13 Pulse 112 08/14/16 19:42 Resp 20 08/14/16 13:13 BP 122/77 08/14/16 13:13 Pulse Ox 90 L 08/14/16 19:42 Oxygen Pulse Oxygen Saturation 90 O2 Device Nasal Cannula Oxygen Flow Rate 2 Fraction of Inspired Oxygen ( FIO2) Intake & Output 08/11/16 08/12/16 08/13/16 08/14/16 23:59 23:59 23:59 23:59 Intake Total 2880 2968 3068 3334 Output Total 1600 2325 4850 4050 Balance [phone] -[phone] -613 Patient's weight 60.81 kg 61.689 kg 61.462 kg General: Alert, Oriented x3, No acute distress, Well appearing, Well nourished HEENT: Normal (Normocephalic, atraumatic;EOMI.Sclera white, Nares patent, without discharge or bleeding. No oropharyngeal lesions or erythema. Mucous membranes are dry.) Neck: Non-tender, Full range of motion, Normal Trachea alignment, Normal inspection (No cervical lymphadenopathy. No supraclavicular lymphadenopathy.), No Masses palpable, Supple Lymphatics: Normal (No lymph node swelling or pain.) Respiratory: Accessory Muscle Use, Rhonchi, Wheezes (bilateral, very tight) Cardiovascular: Regular rate and rhythm (No bradycardia or tachycardia), Normal S1, No Gallops,Rubs/Murmurs, Normal S2, Good Pedal Pulses (DP pulses 2+ bilaterally) GI: Normal bowel sounds (normal active sounds), Soft (non-distended), Non tender , No hepatospenomegaly, No masses Extremities/Musculoskeletal: Normal pulses (DP pulses 2+ bilaterally) Skin: Warm,Dry and Intact, No rashes, No significant lesion Neurological: Strength at 5/5 X4 ext (Motor 5/5 throughout.), Normal tone, Cranial nerves 3-12 NL ( 2-12 grossly intact.) Psych/Mental Status: Appropriate, Normal Affect Lab/DI/Studies Reviewed: 08/14/16 04:45 08/14/16 04:45 Laboratory Results - last 24 hr 08/14/16 08/14/16 08/14/16 04:45 04:45 04:58 WBC 19.4 H RBC 4.13 L Hgb 12.3 L Hct 37.4 L MCV 91 MCH 29.8 MCHC 32.9 L RDW 13.2 Plt Count 220 MPV 8.9 Neut % (Auto) Cancelled Lymph % (Auto) Cancelled [place] % (Auto) Cancelled Eos % (Auto) Cancelled Baso % (Auto) Cancelled Absolute Neuts (auto) Cancelled Absolute Lymphs (auto) Cancelled Seg Neuts % (Manual) 93 H Band Neutrophils % 2 Lymphocytes % (Manual) 2 L Monocytes % (Manual) 3 Absolute Neutrophils 18.43 H Absolute Lymphocytes 0.39 L Platelet Estimate Norm RBC Morphology 1+ poik Puncture Site Right radial pH 7.460 H pCO2 59.0 H pO2 64.0 L HCO3 42.0 H Total CO2 43.8 H Base Excess 15.2 H FiO2 % 2.5l nc Specimen Drawn By Whitr Sodium 139 Potassium 3.3 L Chloride 92 L Carbon Dioxide 43 H Anion Gap 7 L BUN 33 H Creatinine 0.70 Estimated GFR (MDRD) > 60 Glucose 186 H Calculated Osmolality 280 Calcium 8.4 - Assessment (1) Acute respiratory failure with hypoxia and hypercarbia Acute J96.01 - ACUTE RESPIRATORY FAILURE WITH HYPOXIA; J96.02 - ACUTE RESPIRATORY FAILURE WITH HYPERCAPNIA Comment/Plan: Continuing to maximize oxygenation as best able. (2) Hyperlipidemia Chronic E78.5 - HYPERLIPIDEMIA, UNSPECIFIED Qualifiers: Hyperlipidemia type: unspecified Qualified Code(s): E78.5 - Hyperlipidemia , unspecified Comment/Plan: Continue home medications (3) Hypertension Chronic I10 - ESSENTIAL (PRIMARY) HYPERTENSION Qualifiers: Hypertension type: essential hypertension Qualified Code(s): I10 - Essential (primary) hypertension Comment/Plan: Continue medications (4) Emphysema lung Chronic J43.9 - EMPHYSEMA, UNSPECIFIED Qualifiers: Emphysema type: centrilobular Qualified Code(s): J43.2 - Centrilobular emphysema (5) COPD (chronic obstructive pulmonary disease) with acute bronchitis Acute J44.0 - CHRONIC OBSTRUCTIVE PULMON DISEASE W ACUTE LOWER RESP INFCT Comment/Plan: Continue present care. Disposition Plan: Likely home when exacerbation improved Case Care Discussed with: Patient, Nursing Staff, Resource Management Education/Counseling Given To: Patient, Family Member Education/Counseling Given Regarding: Diagnosis Total Time: 38 min Critical Care: No Code: 95413 (12+)
[2016-08-14] MEDS: POTASSIUM CHLORIDE 20 MEQ TAB PO SCH (22:02)
[2016-08-14] MEDS: Levofloxacin 750 mg/150 ml D5W 750 MG/150 ML RTU IV SCH (22:02)
[2016-08-14] MEDS: METHYLPREDNISOLONE 40 MG/1 ML VIAL IV SCH (22:03)
[2016-08-15] MEDS: POTASSIUM CHLORIDE 20 MEQ TAB PO SCH (00:12)
[2016-08-15] MEDS: NICOTINE 21 MG PATCH TOP SCH (00:12)
[2016-08-15] MEDS: Albuterol/Ipratropium Neb 3 ML NEB NEB SCH ×4 (02:07→20:07)
[2016-08-15] MEDS: OXYCODONE HCL 5 MG TABLET PO PRN ×3 (03:50→19:52)
[2016-08-15] MEDS: NS 1,000 ML IV SCH ×3 (04:41→19:57)
[2016-08-15] MEDS: SODIUM CHLORIDE 0.9% 3 ML FLUSH FLUSH SCH ×2 (05:18→18:26)
[2016-08-15 06:36] LABS: MPV 9.1 fL (7.4-10.4)
[2016-08-15 07:11] LABS: BLOOD UREA NITROGEN 35 MG/DL (9-20); CALCIUM 8.5 MG/DL (8.4-10.2); CALCULATED OSMOLALITY 279 MOs/Kg (270-290); CHLORIDE 93 mEq/L (98-107); GLUCOSE 158 MG/DL (70-99); SODIUM LEVEL 139 mEq/L (137-146)
[2016-08-15 07:30] LABS: SEG NEUTROPHIL 91 % (45-76)
[2016-08-15] MEDS: FLUTICASONE PROPIONATE 16 GM BOT NAS SCH ×2 (08:17→19:53)
[2016-08-15] MEDS: METHYLPREDNISOLONE 40 MG/1 ML VIAL IV SCH ×2 (08:17→21:27)
[2016-08-15] MEDS: FUROSEMIDE 40 MG/4 ML VIAL IV SCH ×2 (08:17→16:34)
[2016-08-15] MEDS: LISINOPRIL 20 MG TAB PO SCH (08:18)
[2016-08-15] MEDS: ATORVASTATIN 10 MG TAB PO SCH (08:18)
[2016-08-15] MEDS: MONTELUKAST SODIUM 10 MG TAB PO SCH (08:18)
[2016-08-15] MEDS: FLUCONAZOLE 100 MG TAB PO SCH (08:18)
--- NOTE | 2016-08-15 09:39 | PCM.PULM ---
Chief Complaint: Uneventful overnight Current medication list and notes reviewed:yes, Events from last night noted and discussed with Clinical Staff - Physical Examination Vital Signs and I&O: Last Vital Signs Temp 97.6 F 08/15/16 05:28 Pulse 101 08/15/16 07:26 Resp 20 08/15/16 07:26 BP 131/77 08/15/16 05:28 Pulse Ox 94 08/15/16 07:26 Oxygen Pulse Oxygen Saturation 94 O2 Device Nasal Cannula Oxygen Flow Rate 2 Fraction of Inspired Oxygen ( FIO2) Intake & Output 08/12/16 08/13/16 08/14/16 08/15/16 23:59 23:59 23:59 23:59 Intake Total 2960 3068 333 1461 Output Total 6027 5192 4059 500 Balance 584 -0554 -509 961 Patient's weight 61.689 kg 61.462 kg 61.348 kg General: Alert, Oriented x3, No acute distress Respiratory: Diminished, Rhonchi, Wheezes Cardiovascular: Regular rate, Regular rate and rhythm, Normal S1, No Gallops, Rubs/Murmurs, Normal S2 GI: Normal bowel sounds, Soft, Non tender, No hepatospenomegaly, No masses Extremities/Musculoskeletal: Normal pulses Skin: Warm,Dry and Intact, No rashes, No breakdown Neurological: Normal Steady Gait, Normal speech, Strength at 5/5 X4 ext, Normal tone, Cranial nerves 3-12 NL, Reflexes 2+ Psych/Mental Status: Normal Affect Result Diagrams: 08/15/16 05:20 08/15/16 05:20 Labs (last 24 hours): Laboratory Results - last 24 hr 08/15/16 08/15/16 05:20 05:20 WBC 19.2 H RBC 3.96 L Hgb 12.0 L Hct 35.6 L MCV 90 MCH 30.3 MCHC 33.7 RDW 13.0 Plt Count 194 MPV 9.1 Neut % (Auto) Cancelled Lymph % (Auto) Cancelled [place] % (Auto) Cancelled Eos % (Auto) Cancelled Baso % (Auto) Cancelled Absolute Neuts (auto) Cancelled Absolute Lymphs (auto) Cancelled Seg Neuts % (Manual) 91 H Band Neutrophils % 2 Lymphocytes % (Manual) 4 L Monocytes % (Manual) 3 Absolute Neutrophils 17.86 H Absolute Lymphocytes 0.[address] Granulation Tr Platelet Estimate Norm RBC Morphology Reviewed this admiss Sodium 139 Potassium 3.7 Chloride 93 L Carbon Dioxide 40 H Anion Gap 10 BUN 35 H Creatinine 0.60 L Estimated GFR (MDRD) > 60 Glucose 158 H Calculated Osmolality 279 Calcium 8.5 Lab/DI/Studies Reviewed: Medications: Oxycodone HCl (Oxycodone Immediate Release (Oxyir)) 10 mg PO Q8H PRN PRN Reason: Pain Stop: 08/11/16 21:34 Last Admin: 08/06/16 06:47 Dose: 10 mg Promethazine HCl (Phenergan) 12.5 mg IV Q6H PRN; Protocol PRN Reason: Nausea/Vomiting - Alternative Stop: 08/18/16 16:59 Acetaminophen (Tylenol Suppository) 650 mg VT Q6H PRN; Protocol PRN Reason: Mild Pain or Fever above 100.4 Stop: 08/18/16 16:59 Acetaminophen (Tylenol Tablet) 650 mg PO Q6H PRN; Protocol PRN Reason: Mild Pain or Fever above 100.4 Stop: 08/18/16 16:59 Albuterol/Ipratropium (Duoneb) 3 ml NEB Q2H PRN PRN Reason: Wheezing Stop: 08/18/16 16:59 Last Admin: 08/05/16 11:48 Dose: 3 ml Albuterol/Ipratropium (Duoneb) 3 ml NEB RTQ6 [place]JA[place] Stop: 08/18/16 16:59 Last Admin: 08/06/16 07:28 Dose: 3 ml Alprazolam (Xanax) 0.5 mg PO BID PRN PRN Reason: Anxiety Stop: 08/18/16 21:34 Atorvastatin Calcium (Lipitor) 10 mg PO DAILY [facility] Stop: 08/19/16 08:59 Last Admin: 08/06/16 08:42 Dose: 10 mg Benzonatate (Tessalon) 200 mg PO Q8H PRN PRN Reason: Cough - First Option Stop: 08/18/16 16:59 Ceftriaxone Sodium 1 gm/ (Dextrose) 100 mls @ 100 mls/hr IV Q24H [facility] Stop: 08/12/16 13:59 Last Admin: 08/05/16 13:45 Dose: 100 mls/hr Lisinopril (Zestril) 20 mg PO DAILY [facility] Stop: 08/19/16 08:59 Last Admin: 08/06/16 08:42 Dose: 20 mg Montelukast Sodium (Singulair) 10 mg PO DAILY [facility] Stop: 08/19/16 08:59 Last Admin: 08/06/16 08:42 Dose: 10 mg Nicotine (Nicoderm) 21 mg TOP Q24H [facility] Stop: 08/19/16 00:59 Last Admin: 08/05/16 23:19 Dose: Not Given Ondansetron HCl (Zofran) 4 mg IV Q6H PRN PRN Reason: Nausea/Vomiting - First Option Stop: 08/18/16 16:59 Senna/Docusate Sodium (Senokot S Or Jade Colace) 1 tab PO BID PRN PRN Reason: Constipation - First Option Stop: 08/18/16 16:59 Simethicone (Mylicon, Mylanta Gas) 80 mg PO Q3H PRN PRN Reason: Intestinal Gas Stop: 08/18/16 16:59 Temazepam (Restoril) 15 mg PO HS PRN PRN Reason: Sleep or Insomnia Stop: 08/18/16 16:59 Fluticasone Propionate (Flonase Nasal [place]) 1 sprays MARGARITA BID Stop: 08/09/16 12:10 Methylprednisolone Sodium Succinate (Solu-Medrol) 40 mg IV Q12H [facility] Stop: 08/28/16 16:59 Last Admin: 08/15/16 08:17 Dose: 40 mg Furosemide (Lasix) 40 mg IV LASBID [facility] Stop: 08/26/16 16:59 Last Admin: 08/15/16 08:17 Dose: 40 mg - Assessment/Plan (1) Acute respiratory failure with hypoxia and hypercarbia Acute J96.01 - ACUTE RESPIRATORY FAILURE WITH HYPOXIA; J96.02 - ACUTE RESPIRATORY FAILURE WITH HYPERCAPNIA Comment/Plan: Continu diuresis, Very slow movement in clinical condition I think patient should be kept in the negative fluid balance with IV diuretics. r I would continue Lasix on this patient , continue IV steroids,IV antibiotics, duo nebulizer treatment, supplemental oxygen, DVT/GI prophylaxis. Continue his other care and patient has guarded long-term prognosis . (2) Acute exacerbation of chronic obstructive airways disease Acute J44.1 - CHRONIC OBSTRUCTIVE PULMONARY DISEASE W (ACUTE) EXACERBATION Comment/Plan: No change in treatment, Improving slowly. Would continue current therapy with IV steroids, IV antibiotics, Duo neb treatment and supplemental oxygen. Would continue full supportive care. (3) Anxiety Chronic F41.9 - ANXIETY DISORDER, UNSPECIFIED Comment/Plan: stable. Continue Xanax prn
--- NOTE | 2016-08-15 12:28 | GENMEDPROG ---
Chief Complaint: sob similar but feeling stronger his sisters are asked me why we should consult hospice as they would like to see him more actively involved in pulmonary rehab. Notes Reviewed: Yes Events from last night noted and discussed with Clinical Staff Current Medication List: Reviewed Currently: Reports: Cough, SOB, Tobacco Use/Hx (Former). Denies: Sputum DVT Prophylaxis: Yes - Physical Examination Vital Signs and I&O: Last Vital Signs Temp 97.6 F 08/15/16 05:28 Pulse 101 08/15/16 07:26 Resp 20 08/15/16 07:26 BP 131/77 08/15/16 05:28 Pulse Ox 94 08/15/16 07:26 Oxygen Pulse Oxygen Saturation 94 O2 Device Nasal Cannula Oxygen Flow Rate 2 Fraction of Inspired Oxygen ( FIO2) Intake & Output 08/12/16 08/13/16 08/14/16 08/15/16 23:59 23:59 23:59 23:59 Intake Total 2968 3068 3334 1581 Output Total 2325 4850 4050 1450 Balance 653 -3741 -030 131 Patient's weight 61.689 kg 61.462 kg 61.348 kg General: Alert, Oriented x3, No acute distress, Well appearing, Well nourished HEENT: Normal (Normocephalic, atraumatic;EOMI.Sclera white, Nares patent, without discharge or bleeding. No oropharyngeal lesions or erythema. Mucous membranes are dry.) Neck: Non-tender, Full range of motion, Normal Trachea alignment, Normal inspection (No cervical lymphadenopathy. No supraclavicular lymphadenopathy.), No Masses palpable, Supple Lymphatics: Normal (No lymph node swelling or pain.) Respiratory: Accessory Muscle Use, Rhonchi, Wheezes (bilateral, very tight) Cardiovascular: Regular rate and rhythm (No bradycardia or tachycardia), Normal S1, No Gallops,Rubs/Murmurs, Normal S2, Good Pedal Pulses (DP pulses 2+ bilaterally) GI: Normal bowel sounds (normal active sounds), Soft (non-distended), Non tender , No hepatospenomegaly, No masses Extremities/Musculoskeletal: Normal pulses (DP pulses 2+ bilaterally) Skin: Warm,Dry and Intact, No rashes, No significant lesion Neurological: Strength at 5/5 X4 ext (Motor 5/5 throughout.), Normal tone, Cranial nerves 3-12 NL ( 2-12 grossly intact.) Psych/Mental Status: Appropriate, Normal Affect Lab/DI/Studies Reviewed: 08/15/16 05:20 08/15/16 05:20 Laboratory Results - last 24 hr 08/15/16 08/15/16 05:20 05:20 WBC 19.2 H RBC 3.96 L Hgb 12.0 L Hct 35.6 L MCV 90 MCH 30.3 MCHC 33.7 RDW 13.0 Plt Count 194 MPV 9.1 Neut % (Auto) Cancelled Lymph % (Auto) Cancelled [place] % (Auto) Cancelled Eos % (Auto) Cancelled Baso % (Auto) Cancelled Absolute Neuts (auto) Cancelled Absolute Lymphs (auto) Cancelled Seg Neuts % (Manual) 91 H Band Neutrophils % 2 Lymphocytes % (Manual) 4 L Monocytes % (Manual) 3 Absolute Neutrophils 17.86 H Absolute Lymphocytes 0.[address] Tr Platelet Estimate Norm RBC Morphology Reviewed this admiss Sodium 139 Potassium 3.7 Chloride 93 L Carbon Dioxide 40 H Anion Gap 10 BUN 35 H Creatinine 0.60 L Estimated GFR (MDRD) > 60 Glucose 158 H Calculated Osmolality 279 Calcium 8.5 - Assessment (1) Acute respiratory failure with hypoxia and hypercarbia Acute J96.01 - ACUTE RESPIRATORY FAILURE WITH HYPOXIA; J96.02 - ACUTE RESPIRATORY FAILURE WITH HYPERCAPNIA Comment/Plan: Continuing to maximize oxygenation as best able. He desats quite easily with minimal exertion. (2) Hyperlipidemia Chronic E78.5 - HYPERLIPIDEMIA, UNSPECIFIED Qualifiers: Hyperlipidemia type: unspecified Qualified Code(s): E78.5 - Hyperlipidemia , unspecified Comment/Plan: Continue home medications (3) COPD (chronic obstructive pulmonary disease) with acute bronchitis Acute J44.0 - CHRONIC OBSTRUCTIVE PULMON DISEASE W ACUTE LOWER RESP INFCT Comment/Plan: Continue present care. Is certainly is taking a long time to improve on the present therapy. (4) Hypertension Chronic I10 - ESSENTIAL (PRIMARY) HYPERTENSION Qualifiers: Hypertension type: essential hypertension Qualified Code(s): I10 - Essential (primary) hypertension Comment/Plan: Continue medications (5) Emphysema lung Chronic J43.9 - EMPHYSEMA, UNSPECIFIED Qualifiers: Emphysema type: centrilobular Qualified Code(s): J43.2 - Centrilobular emphysema (6) DDD (degenerative disc disease), lumbosacral Chronic M51.37 - OTHER INTERVERTEBRAL DISC DEGENERATION, LUMBOSACRAL REGION Comment/Plan: Back pain under control Additional Notes: Extensive discussion undertaken with sisters and informed them that his lungs are and horrible shape and it is taking him a long time to recuperate Disposition Plan: Likely home when exacerbation improved Case Care Discussed with: Patient, Family, Nursing Staff, Resource Management Education/Counseling Given To: Patient, Family Member Education/Counseling Given Regarding: Diagnosis, Treatment, Prognosis Total Time: 44 min Critical Care: No Code: 98166 (12+)
[2016-08-15] MEDS ORDERED: Medication Special Instructions SCH (13:00)
[2016-08-15] MEDS: CEFTRIAXONE 1 GM in D5W 100 ML IV SCH (16:28)
[2016-08-15] MEDS: PROBIOTIC BLEND TAB PO SCH ×2 (16:37→18:26)
[2016-08-15] MEDS: Levofloxacin 750 mg/150 ml D5W 750 MG/150 ML RTU IV SCH (21:27)
[2016-08-16] MEDS: NICOTINE 21 MG PATCH TOP SCH (01:22)
[2016-08-16] MEDS: Albuterol/Ipratropium Neb 3 ML NEB NEB SCH ×4 (01:30→20:20)
[2016-08-16] MEDS: OXYCODONE HCL 5 MG TABLET PO PRN ×3 (04:05→20:01)
[2016-08-16] MEDS: NS 1,000 ML IV SCH ×2 (04:06→14:30)
[2016-08-16] MEDS: SODIUM CHLORIDE 0.9% 3 ML FLUSH FLUSH SCH ×2 (05:25→17:33)
[2016-08-16 07:32] LABS: MPV 8.7 fL (7.4-10.4)
--- NOTE | 2016-08-16 08:09 | GENMEDPROG ---
Chief Complaint: sob same today coughing up white phlegm Notes Reviewed: Yes Events from last night noted and discussed with Clinical Staff Current Medication List: Reviewed Currently: Reports: Cough, SOB, Tobacco Use/Hx (Former). Denies: Sputum DVT Prophylaxis: Yes - Physical Examination Vital Signs and I&O: Last Vital Signs Temp 97.4 F L 08/16/16 06:00 Pulse 109 08/16/16 06:00 Resp 19 08/16/16 06:00 BP 127/84 08/16/16 06:00 Pulse Ox 95 08/16/16 06:00 Oxygen Pulse Oxygen Saturation 95 O2 Device Nasal Cannula Oxygen Flow Rate 2 Fraction of Inspired Oxygen ( FIO2) Intake & Output 08/13/16 08/14/16 08/15/16 08/16/16 23:59 23:59 23:59 23:59 Intake Total 3068 3334 3460 788 Output Total 4850 4050 2850 200 Balance -1782 -716 610 588 Patient's weight 61.462 kg 61.348 kg 60.866 kg General: Alert, Oriented x3, No acute distress, Well appearing, Well nourished HEENT: Normal (Normocephalic, atraumatic;EOMI.Sclera white, Nares patent, without discharge or bleeding. No oropharyngeal lesions or erythema. Mucous membranes are dry.) Neck: Non-tender, Full range of motion, Normal Trachea alignment, Normal inspection (No cervical lymphadenopathy. No supraclavicular lymphadenopathy.), No Masses palpable, Supple Lymphatics: Normal (No lymph node swelling or pain.) Respiratory: Accessory Muscle Use, Rhonchi, Wheezes (bilateral, very tight) Cardiovascular: Regular rate and rhythm (No bradycardia or tachycardia), Normal S1, No Gallops,Rubs/Murmurs, Normal S2, Good Pedal Pulses (DP pulses 2+ bilaterally) GI: Normal bowel sounds (normal active sounds), Soft (non-distended), Non tender , No hepatospenomegaly, No masses Extremities/Musculoskeletal: Normal pulses (DP pulses 2+ bilaterally) Skin: Warm,Dry and Intact, No rashes, No significant lesion Neurological: Strength at 5/5 X4 ext (Motor 5/5 throughout.), Normal tone, Cranial nerves 3-12 NL ( 2-12 grossly intact.) Psych/Mental Status: Appropriate, Normal Affect Lab/DI/Studies Reviewed: 08/16/16 07:07 08/16/16 07:07 Laboratory Results - last 24 hr 08/16/16 08/16/16 07:07 07:07 WBC 22.6 H RBC 4.00 L Hgb 11.9 L Hct 35.8 L MCV 90 MCH 29.7 MCHC 33.2 RDW 13.1 Plt Count 179 MPV 8.7 Neut % (Auto) Cancelled Lymph % (Auto) Cancelled [place] % (Auto) Cancelled Eos % (Auto) Cancelled Baso % (Auto) Cancelled Absolute Neuts (auto) Cancelled Absolute Lymphs (auto) Cancelled Seg Neuts % (Manual) 90 H Band Neutrophils % 1 Lymphocytes % (Manual) 5 L Monocytes % (Manual) 4 Absolute Neutrophils 20.57 H Absolute Lymphocytes 1.13 Toxic Granulation 2+ Platelet Estimate Norm RBC Morphology Reviewed this admiss Sodium 137 Potassium 3.9 Chloride 94 L Carbon Dioxide 39 H Anion Gap 8 BUN 34 H Creatinine 0.60 L Estimated GFR (MDRD) > 60 Glucose 162 H Calculated Osmolality 276 Calcium 8.3 L - Assessment (1) Acute respiratory failure with hypoxia and hypercarbia Acute J96.01 - ACUTE RESPIRATORY FAILURE WITH HYPOXIA; J96.02 - ACUTE RESPIRATORY FAILURE WITH HYPERCAPNIA Comment/Plan: Continuing to maximize oxygenation as best able. He desats quite easily with minimal exertion. (2) Hyperlipidemia Chronic E78.5 - HYPERLIPIDEMIA, UNSPECIFIED Qualifiers: Hyperlipidemia type: unspecified Qualified Code(s): E78.5 - Hyperlipidemia , unspecified Comment/Plan: Continue home medications (3) COPD (chronic obstructive pulmonary disease) with acute bronchitis Acute J44.0 - CHRONIC OBSTRUCTIVE PULMON DISEASE W ACUTE LOWER RESP INFCT Comment/Plan: Continue present care. Is certainly is taking a long time to improve on the present therapy. (4) DDD (degenerative disc disease), lumbosacral Chronic M51.37 - OTHER INTERVERTEBRAL DISC DEGENERATION, LUMBOSACRAL REGION Comment/Plan: Back pain under control (5) Hypertension Chronic I10 - ESSENTIAL (PRIMARY) HYPERTENSION Qualifiers: Hypertension type: essential hypertension Qualified Code(s): I10 - Essential (primary) hypertension Comment/Plan: Continue medications (6) Emphysema lung Chronic J43.9 - EMPHYSEMA, UNSPECIFIED Qualifiers: Emphysema type: centrilobular Qualified Code(s): J43.2 - Centrilobular emphysema Case Care Discussed with: Patient, Nursing Staff Education/Counseling Given To: Patient Education/Counseling Given Regarding: Diagnosis, Treatment Total Time: 39 min Critical Care: No Code: 09829 (12+)
[2016-08-16 08:15] LABS: BLOOD UREA NITROGEN 34 MG/DL (9-20); CALCIUM 8.3 MG/DL (8.4-10.2); CALCULATED OSMOLALITY 276 MOs/Kg (270-290); CHLORIDE 94 mEq/L (98-107); GLUCOSE 162 MG/DL (70-99); SODIUM LEVEL 137 mEq/L (137-146)
[2016-08-16 08:17] LABS: SEG NEUTROPHIL 90 % (45-76)
[2016-08-16] MEDS: FLUTICASONE PROPIONATE 16 GM BOT NAS SCH ×2 (11:01→20:02)
[2016-08-16] MEDS: MONTELUKAST SODIUM 10 MG TAB PO SCH (11:02)
[2016-08-16] MEDS: ATORVASTATIN 10 MG TAB PO SCH (11:02)
[2016-08-16] MEDS: METHYLPREDNISOLONE 40 MG/1 ML VIAL IV SCH ×2 (11:02→20:03)
[2016-08-16] MEDS: FLUCONAZOLE 100 MG TAB PO SCH (11:02)
[2016-08-16] MEDS: LISINOPRIL 20 MG TAB PO SCH (11:02)
[2016-08-16] MEDS: PROBIOTIC BLEND TAB PO SCH ×2 (11:02→17:33)
[2016-08-16] MEDS: FUROSEMIDE 40 MG/4 ML VIAL IV SCH ×2 (11:02→17:32)
[2016-08-16] MEDS: CEFTRIAXONE 1 GM in D5W 100 ML IV SCH (17:31)
[2016-08-16] MEDS: Levofloxacin 750 mg/150 ml D5W 750 MG/150 ML RTU IV SCH (20:07)
[2016-08-16] MEDS: PROMETHAZINE 25 MG/ML VIAL IV PRN (21:26)
[2016-08-17] MEDS: NICOTINE 21 MG PATCH TOP SCH ×2 (00:37→23:47)
[2016-08-17] MEDS: Albuterol/Ipratropium Neb 3 ML NEB NEB SCH ×4 (01:12→20:51)
[2016-08-17] MEDS: NS 1,000 ML IV SCH ×3 (02:40→23:55)
[2016-08-17] MEDS: SODIUM CHLORIDE 0.9% 3 ML FLUSH FLUSH SCH ×2 (04:11→15:20)
[2016-08-17 06:42] LABS: BLOOD UREA NITROGEN 33 MG/DL (9-20); CALCIUM 8.4 MG/DL (8.4-10.2); CALCULATED OSMOLALITY 276 MOs/Kg (270-290); CHLORIDE 93 mEq/L (98-107); GLUCOSE 196 MG/DL (70-99); SODIUM LEVEL 137 mEq/L (137-146)
[2016-08-17 08:21] LABS: SEG NEUTROPHIL 90 % (45-76)
[2016-08-17] MEDS: FLUCONAZOLE 100 MG TAB PO SCH (08:30)
[2016-08-17] MEDS: OXYCODONE HCL 5 MG TABLET PO PRN ×2 (08:30→17:11)
[2016-08-17] MEDS: FUROSEMIDE 40 MG/4 ML VIAL IV SCH ×2 (08:30→15:19)
[2016-08-17] MEDS: ATORVASTATIN 10 MG TAB PO SCH (08:31)
[2016-08-17] MEDS: FLUTICASONE PROPIONATE 16 GM BOT NAS SCH ×2 (08:31→20:11)
[2016-08-17] MEDS: MONTELUKAST SODIUM 10 MG TAB PO SCH (08:31)
[2016-08-17] MEDS: LISINOPRIL 20 MG TAB PO SCH (08:31)
[2016-08-17] MEDS: METHYLPREDNISOLONE 40 MG/1 ML VIAL IV SCH ×2 (10:04→23:47)
[2016-08-17] MEDS: PROBIOTIC BLEND TAB PO SCH ×2 (12:01→17:11)
--- NOTE | 2016-08-17 12:51 | GENMEDPROG ---
Chief Complaint: No change. Says doctors told him not to move because oxygen levels drop. Still significant sputum production Notes Reviewed: Yes Events from last night noted and discussed with Clinical Staff Current Medication List: Reviewed Currently: Reports: Cough, SOB, Tobacco Use/Hx (Former). Denies: Sputum, Nausea and Vomiting, Abdominal Pain DVT Prophylaxis: Yes - Physical Examination Vital Signs and I&O: Last Vital Signs Temp 97.9 F 08/17/16 05:51 Pulse 102 08/17/16 05:51 Resp 19 08/17/16 05:51 BP 127/88 08/17/16 05:51 Pulse Ox 93 08/17/16 08:00 Oxygen Pulse Oxygen Saturation 93 O2 Device Nasal Cannula Oxygen Flow Rate 2 Fraction of Inspired Oxygen ( FIO2) Intake & Output 08/14/16 08/15/16 08/16/16 08/17/16 23:59 23:59 23:59 23:59 Intake Total 3334 3460 3334 1014 Output Total 4050 2850 4300 2125 Balance -716 610 -966 -1111 Patient's weight 61.462 kg 61.348 kg 60.866 kg 60.384 kg General: Alert, Oriented x3, Mild distress. negative: Well appearing, Well nourished HEENT: Normal (Normocephalic, atraumatic;EOMI.Sclera white, Nares patent, without discharge or bleeding. No oropharyngeal lesions or erythema. Mucous membranes are dry.), PERRLA, EOMI Neck: Non-tender, Full range of motion, Normal Trachea alignment, Normal inspection (No cervical lymphadenopathy. No supraclavicular lymphadenopathy.), No Masses palpable, Supple Lymphatics: Normal (No lymph node swelling or pain.) Respiratory: Accessory Muscle Use, Rhonchi, Wheezes (bilateral, very tight) Cardiovascular: Regular rate and rhythm (No bradycardia or tachycardia), Normal S1, No Gallops,Rubs/Murmurs, Normal S2, Good Pedal Pulses (DP pulses 2+ bilaterally) GI: Normal bowel sounds (normal active sounds), Soft (non-distended), Non tender , No hepatospenomegaly, No masses Extremities/Musculoskeletal: Normal pulses (DP pulses 2+ bilaterally) Skin: Warm,Dry and Intact, No rashes, No significant lesion Neurological: Strength at 5/5 X4 ext (Motor 5/5 throughout.), Normal tone, Cranial nerves 3-12 NL ( 2-12 grossly intact.) Psych/Mental Status: Appropriate, Normal Affect Lab/DI/Studies Reviewed: Laboratory Results - last 24 hr 08/17/16 08/17/16 05:37 05:37 WBC 25.8 H RBC 3.95 L Hgb 11.6 L Hct 35.5 L MCV 90 MCH 29.3 MCHC 32.6 L RDW 13.2 Plt Count 157 MPV 9.0 Neut % (Auto) Cancelled Lymph % (Auto) Cancelled [place] % (Auto) Cancelled Eos % (Auto) Cancelled Baso % (Auto) Cancelled Absolute Neuts (auto) Cancelled Absolute Lymphs (auto) Cancelled Seg Neuts % (Manual) 90 H Band Neutrophils % 2 Lymphocytes % (Manual) 2 L Monocytes % (Manual) 6 Absolute Neutrophils 23.74 H Absolute Lymphocytes 0.52 L Toxic Granulation 1+ Platelet Estimate Large plts present RBC Morphology 1+ poik Sodium 137 Potassium 3.7 Chloride 93 L Carbon Dioxide 39 H Anion Gap 9 BUN 33 H Creatinine 0.50 L Estimated GFR (MDRD) > 60 Glucose 196 H Calculated Osmolality 276 Calcium 8.4 - Assessment (1) Acute respiratory failure with hypoxia and hypercarbia Acute J96.01 - ACUTE RESPIRATORY FAILURE WITH HYPOXIA; J96.02 - ACUTE RESPIRATORY FAILURE WITH HYPERCAPNIA Comment/Plan: Very slow progress. He states that his oxygen levels dropped with minimal exertion. However this is not been documented and respiratory therapy says that his sats are relatively stable. Have encouraged him to get up and ambulate. Stressed that he will only get weaker. Continue IV antibiotics, IV steroids, nebulizer treatments and pulmonary toilet. (2) COPD exacerbation Acute J44.1 - CHRONIC OBSTRUCTIVE PULMONARY DISEASE W (ACUTE) EXACERBATION Comment/Plan: Continue IV steroids, nebulizer treatments and pulmonary toilet. If does not make significant progress would consider [place] evaluation. (3) DDD (degenerative disc disease), lumbosacral Chronic M51.37 - OTHER INTERVERTEBRAL DISC DEGENERATION, LUMBOSACRAL REGION Comment/Plan: Back pain under control (4) Hyperlipidemia Chronic E78.5 - HYPERLIPIDEMIA, UNSPECIFIED Qualifiers: Hyperlipidemia type: unspecified Qualified Code(s): E78.5 - Hyperlipidemia , unspecified Comment/Plan: Continue home medications (5) Hypertension Chronic I10 - ESSENTIAL (PRIMARY) HYPERTENSION Qualifiers: Hypertension type: essential hypertension Qualified Code(s): I10 - Essential (primary) hypertension Comment/Plan: Continue medications Case Care Discussed with: Patient, Nursing Staff, Resource Management, Respiratory Therapy, Electronic Systems Technician
[2016-08-17] MEDS: CEFTRIAXONE 1 GM in D5W 100 ML IV SCH (13:23)
[2016-08-17] MEDS: Levofloxacin 750 mg/150 ml D5W 750 MG/150 ML RTU IV SCH (23:46)
[2016-08-18] MEDS: OXYCODONE HCL 5 MG TABLET PO PRN ×3 (01:17→17:05)
[2016-08-18] MEDS: ALPRAZOLAM 0.5 MG TAB PO PRN (01:18)
[2016-08-18] MEDS: Albuterol/Ipratropium Neb 3 ML NEB NEB SCH ×3 (01:56→14:19)
[2016-08-18] MEDS: SODIUM CHLORIDE 0.9% 3 ML FLUSH FLUSH SCH ×2 (05:07→17:57)
[2016-08-18 05:39] LABS: ALLEN'S TEST PASS
[2016-08-18 05:40] LABS: ABG Draw Site Right Radial; TCO2 41.2 MMOL/L (23-27)
[2016-08-18 07:51] LABS: MPV 9.2 fL (7.4-10.4)
[2016-08-18 08:26] LABS: BLOOD UREA NITROGEN 24 MG/DL (9-20); CALCIUM 8.2 MG/DL (8.4-10.2); CALCULATED OSMOLALITY 276 MOs/Kg (270-290); CHLORIDE 95 mEq/L (98-107); GLUCOSE 209 MG/DL (70-99); SODIUM LEVEL 138 mEq/L (137-146)
[2016-08-18 08:42] LABS: SEG NEUTROPHIL 92 % (45-76)
[2016-08-18] MEDS: FLUTICASONE PROPIONATE 16 GM BOT NAS SCH (09:16)
[2016-08-18] MEDS: FLUCONAZOLE 100 MG TAB PO SCH (09:16)
[2016-08-18] MEDS: FUROSEMIDE 40 MG/4 ML VIAL IV SCH ×2 (09:16→15:28)
[2016-08-18] MEDS: ATORVASTATIN 10 MG TAB PO SCH (09:17)
[2016-08-18] MEDS: LISINOPRIL 20 MG TAB PO SCH (09:17)
[2016-08-18] MEDS: MONTELUKAST SODIUM 10 MG TAB PO SCH (09:17)
[2016-08-18] MEDS: METHYLPREDNISOLONE 40 MG/1 ML VIAL IV SCH (09:18)
[2016-08-18] MEDS: NS 1,000 ML IV SCH (11:24)
[2016-08-18] MEDS: PROBIOTIC BLEND TAB PO SCH ×2 (12:24→17:05)
[2016-08-18] MEDS: CEFTRIAXONE 1 GM in D5W 100 ML IV SCH (13:26)
--- NOTE | 2016-08-18 16:38 | GENMEDPROG ---
Chief Complaint: Unchanged. Somewhat odd behavior and very poorly motivated to work with physical therapy. Despite improved oxygenation. Very anxious and nervous is he says he gets very short of breath. He is markedly deconditioned Notes Reviewed: Yes Events from last night noted and discussed with Clinical Staff Current Medication List: Reviewed Currently: Reports: Cough, SOB, Tobacco Use/Hx (Former). Denies: Sputum, Nausea and Vomiting, Abdominal Pain DVT Prophylaxis: Yes - Physical Examination Vital Signs and I&O: Last Vital Signs Temp 97.9 F 08/18/16 13:32 Pulse 110 08/18/16 13:32 Resp 20 08/18/16 13:32 BP 108/79 08/18/16 13:32 Pulse Ox 94 08/18/16 13:32 Oxygen Pulse Oxygen Saturation 94 O2 Device Nasal Cannula Oxygen Flow Rate 2 Fraction of Inspired Oxygen ( FIO2) Intake & Output 08/15/16 08/16/16 08/17/16 08/18/16 23:59 23:59 23:59 23:59 Intake Total 3460 3334 3571 440 Output Total 2850 4300 4925 1750 Balance 610 -966 -1354 -1310 Patient's weight 61.348 kg 60.866 kg 60.384 kg 59.506 kg General: Alert, Oriented x3, Mild distress. negative: Well appearing, Well nourished HEENT: Normal (Normocephalic, atraumatic;EOMI.Sclera white, Nares patent, without discharge or bleeding. No oropharyngeal lesions or erythema. Mucous membranes are dry.), PERRLA, EOMI Neck: Non-tender, Full range of motion, Normal Trachea alignment, Normal inspection (No cervical lymphadenopathy. No supraclavicular lymphadenopathy.), No Masses palpable, Supple Lymphatics: Normal (No lymph node swelling or pain.) Respiratory: Accessory Muscle Use, Rhonchi, Wheezes (bilateral, very tight) Cardiovascular: Regular rate and rhythm (No bradycardia or tachycardia), Normal S1, No Gallops,Rubs/Murmurs, Normal S2, Good Pedal Pulses (DP pulses 2+ bilaterally) GI: Normal bowel sounds (normal active sounds), Soft (non-distended), Non tender , No hepatospenomegaly, No masses Extremities/Musculoskeletal: Normal pulses (DP pulses 2+ bilaterally) Skin: Warm,Dry and Intact, No rashes, No significant lesion Neurological: Strength at 5/5 X4 ext (Motor 5/5 throughout.), Normal tone, Cranial nerves 3-12 NL ( 2-12 grossly intact.) Psych/Mental Status: Agitated, Anxious, Restless. negative: Normal Affect Lab/DI/Studies Reviewed: Laboratory Results - last 24 hr 08/18/16 08/18/16 08/18/16 05:30 07:10 07:10 WBC 19.7 H RBC 3.78 L Hgb 11.3 L Hct 34.2 L MCV 90 MCH 29.8 MCHC 33.0 RDW 13.2 Plt Count 144 MPV 9.2 Neut % (Auto) Cancelled Lymph % (Auto) Cancelled Graves % (Auto) Cancelled Eos % (Auto) Cancelled Baso % (Auto) Cancelled Absolute Neuts (auto) Cancelled Absolute Lymphs (auto) Cancelled Seg Neuts % (Manual) 92 H Band Neutrophils % 2 Lymphocytes % (Manual) 1 L Monocytes % (Manual) 5 Absolute Neutrophils 18.52 H Absolute Lymphocytes 0.20 L Platelet Estimate Norm RBC Morphology Reviewed this admiss Puncture Site Right radial pH 7.490 H pCO2 52.0 H pO2 82.0 HCO3 39.6 H Total CO2 41.2 H Base Excess 14.0 H FiO2 % 2l nc Specimen Drawn By Baras Sodium 138 Potassium 3.5 Chloride 95 L Carbon Dioxide 39 H Anion Gap 8 BUN 24 H Creatinine 0.50 L Estimated GFR (MDRD) > 60 Glucose 209 H Calculated Osmolality 276 Calcium 8.2 L - Assessment (1) Acute respiratory failure with hypoxia and hypercarbia Acute J96.01 - ACUTE RESPIRATORY FAILURE WITH HYPOXIA; J96.02 - ACUTE RESPIRATORY FAILURE WITH HYPERCAPNIA Comment/Plan: Oxygenation is much better. However he is very reluctant to work with physical therapy or increase activity levels. Stressed the importance of building strength and endurance. Continue other current care (2) COPD exacerbation Acute J44.1 - CHRONIC OBSTRUCTIVE PULMONARY DISEASE W (ACUTE) EXACERBATION Comment/Plan: Continue IV steroids, nebulizer treatments and pulmonary toilet. If does not make significant progress would consider [facility] or hospice evaluation. (3) DDD (degenerative disc disease), lumbosacral Chronic M51.37 - OTHER INTERVERTEBRAL DISC DEGENERATION, LUMBOSACRAL REGION Comment/Plan: Back pain under control (4) Hyperlipidemia Chronic E78.5 - HYPERLIPIDEMIA, UNSPECIFIED Qualifiers: Hyperlipidemia type: unspecified Qualified Code(s): E78.5 - Hyperlipidemia , unspecified Comment/Plan: Continue home medications (5) Hypertension Chronic I10 - ESSENTIAL (PRIMARY) HYPERTENSION Qualifiers: Hypertension type: essential hypertension Qualified Code(s): I10 - Essential (primary) hypertension Comment/Plan: Continue medications Case Care Discussed with: Patient, Nursing Staff, Physical Therapy, Resource Management, Respiratory Therapy, Shank Faker
[2016-08-19] MEDS: Levofloxacin 750 mg/150 ml D5W 750 MG/150 ML RTU IV SCH ×2 (00:24→21:28)
[2016-08-19] MEDS: METHYLPREDNISOLONE 40 MG/1 ML VIAL IV SCH ×3 (00:24→21:28)
[2016-08-19] MEDS: FLUTICASONE PROPIONATE 16 GM BOT NAS SCH ×3 (00:24→21:29)
[2016-08-19] MEDS: NICOTINE 21 MG PATCH TOP SCH ×2 (00:26→23:18)
[2016-08-19] MEDS: ALPRAZOLAM 0.5 MG TAB PO PRN (02:37)
[2016-08-19] MEDS: OXYCODONE HCL 5 MG TABLET PO PRN ×3 (02:37→23:19)
[2016-08-19] MEDS: SODIUM CHLORIDE 0.9% 3 ML FLUSH FLUSH SCH ×2 (05:55→17:25)
[2016-08-19] MEDS ORDERED: OXYCODONE HCL 5 MG TABLET ONE (10:37)
[2016-08-19] MEDS: FLUCONAZOLE 100 MG TAB PO SCH (10:41)
[2016-08-19] MEDS: FUROSEMIDE 40 MG/4 ML VIAL IV SCH ×2 (10:41→16:06)
[2016-08-19] MEDS: MONTELUKAST SODIUM 10 MG TAB PO SCH (10:44)
[2016-08-19] MEDS: ATORVASTATIN 10 MG TAB PO SCH (10:44)
[2016-08-19] MEDS: LISINOPRIL 20 MG TAB PO SCH (10:44)
[2016-08-19] MEDS ORDERED: OXYCODONE HCL 5 MG TABLET PO PRN (11:03)
--- NOTE | 2016-08-19 11:46 | PCM.PULM ---
Chief Complaint: Patient had uneventful overnight. Still having shortness of breath and desats easily when ambulating Breathing is improving slowly Current medication list and notes reviewed:yes, Events from last night noted and discussed with Clinical Staff - Physical Examination Vital Signs and I&O: Last Vital Signs Temp 97.8 F 08/19/16 06:00 Pulse 105 08/19/16 06:00 Resp 18 08/19/16 06:00 BP 133/88 08/19/16 06:00 Pulse Ox 98 08/19/16 08:00 Oxygen Pulse Oxygen Saturation 98 O2 Device Nasal Cannula Oxygen Flow Rate 2 Fraction of Inspired Oxygen ( FIO2) Intake & Output 08/16/16 08/17/16 08/18/16 08/19/16 23:59 23:59 23:59 23:59 Intake Total 3334 3571 2380 240 Output Total 4300 3039 3550 500 Balance -966 -1354 -1170 -260 Patient's weight 60.866 kg 60.384 kg 59.506 kg 59.874 kg General: Alert, Oriented x3, Cooperative, No acute distress Respiratory: Diminished (at bases) Cardiovascular: Regular rate, Regular rate and rhythm, Normal S1, No Gallops, Rubs/Murmurs, Normal S2 GI: Normal bowel sounds, Soft, Non tender, No hepatospenomegaly Extremities/Musculoskeletal: Normal pulses Skin: Warm,Dry and Intact, No rashes, No breakdown, No significant lesion Neurological: Normal Steady Gait, Normal speech, Strength at 5/5 X4 ext, Normal tone, Cranial nerves 3-12 NL Psych/Mental Status: Appropriate Result Diagrams: 08/18/16 07:10 08/18/16 07:10 Lab/DI/Studies Reviewed: Medications: Methylprednisolone Sodium Succinate (Solu-Medrol) 40 mg IV Q12H SANJANA Stop: 08/28/16 16:59 Last Admin: 08/15/16 08:17 Dose: 40 mg Furosemide (Lasix) 40 mg IV LASBID SANJANA Stop: 08/26/16 16:59 Last Admin: 08/15/16 08:17 Dose: 40 mg Promethazine HCl (Phenergan) 12.5 mg IV Q6H PRN; Protocol PRN Reason: Nausea/Vomiting - Alternative Stop: 08/18/16 16:59 Acetaminophen (Tylenol Suppository) 650 mg MO Q6H PRN; Protocol PRN Reason: Mild Pain or Fever above 100.4 Stop: 08/18/16 16:59 Acetaminophen (Tylenol Tablet) 650 mg PO Q6H PRN; Protocol PRN Reason: Mild Pain or Fever above 100.4 Stop: 08/18/16 16:59 Albuterol/Ipratropium (Duoneb) 3 ml NEB Q2H PRN PRN Reason: Wheezing Stop: 08/18/16 16:59 Last Admin: 08/05/16 11:48 Dose: 3 ml Albuterol/Ipratropium (Duoneb) 3 ml NEB RTQ6 SANJANA Stop: 08/18/16 16:59 Last Admin: 08/06/16 07:28 Dose: 3 ml Atorvastatin Calcium (Lipitor) 10 mg PO DAILY [facility] Stop: 08/19/16 08:59 Last Admin: 08/06/16 08:42 Dose: 10 mg Benzonatate (Tessalon) 200 mg PO Q8H PRN PRN Reason: Cough - First Option Stop: 08/18/16 16:59 Lisinopril (Zestril) 20 mg PO DAILY [facility] Stop: 08/19/16 08:59 Last Admin: 08/06/16 08:42 Dose: 20 mg Montelukast Sodium (Singulair) 10 mg PO DAILY [facility] Stop: 08/19/16 08:59 Last Admin: 08/06/16 08:42 Dose: 10 mg Nicotine (Nicoderm) 21 mg TOP Q24H [facility] Stop: 08/19/16 00:59 Last Admin: 08/05/16 23:19 Dose: Not Given Ondansetron HCl (Zofran) 4 mg IV Q6H PRN PRN Reason: Nausea/Vomiting - First Option Stop: 08/18/16 16:59 Senna/Docusate Sodium (Senokot S Or Jade Colace) 1 tab PO BID PRN PRN Reason: Constipation - First Option Stop: 08/18/16 16:59 Simethicone (Mylicon, Mylanta Gas) 80 mg PO Q3H PRN PRN Reason: Intestinal Gas Stop: 08/18/16 16:59 Temazepam (Restoril) 15 mg PO HS PRN PRN Reason: Sleep or Insomnia Stop: 08/18/16 16:59 Fluticasone Propionate (Flonase Nasal [place]) 1 sprays MARGARITA BID Stop: 08/09/16 12:10 Lact Acid/Bifidobact/Lact [place]/Streptoc Th (Katalina Q) 1 tab PO BIDLS [facility] Stop: 08/27/16 16:59 Last Admin: 08/18/16 17:05 Dose: 1 tab Fluconazole (Diflucan) 200 mg PO DAILY [facility] Stop: 08/21/16 16:59 Last Admin: 08/19/16 10:41 Dose: 200 mg Oxycodone HCl (Oxycodone Immediate Release (Oxyir)) 10 mg PO Q8H PRN PRN Reason: MODERATE TO SEVERE PAIN Stop: 08/26/16 11:02 - Assessment/Plan (1) Acute respiratory failure with hypoxia and hypercarbia Acute J96.01 - ACUTE RESPIRATORY FAILURE WITH HYPOXIA; J96.02 - ACUTE RESPIRATORY FAILURE WITH HYPERCAPNIA Comment/Plan: Patient remains in negative balance I would continue the current diuresis, Very slow movement in clinical condition I think patient should be kept in the negative fluid balance with IV diuretics. continue IV steroids,IV antibiotics , duo nebulizer treatment, supplemental oxygen, DVT/GI prophylaxis. Continue his other care and patient has guarded long-term prognosis . Patient may be a good candidate for hospice / LTAC placement I had a prolonged discussion with the patient regarding hospice versus LTAC placement and he is considering hospice at this time (2) Acute exacerbation of chronic obstructive airways disease Acute J44.1 - CHRONIC OBSTRUCTIVE PULMONARY DISEASE W (ACUTE) EXACERBATION Comment/Plan: No change in treatment, Improving slowly. Would continue current therapy with IV steroids, IV antibiotics, Duo neb treatment and supplemental oxygen. Would continue full supportive care. (3) Anxiety Chronic F41.9 - ANXIETY DISORDER, UNSPECIFIED Comment/Plan: stable. Continue Xanax prn
[2016-08-19] MEDS: Albuterol/Ipratropium Neb 3 ML NEB NEB PRN (14:54)
[2016-08-19] MEDS ORDERED: Albuterol/Ipratropium Neb 3 ML NEB NEB PRN (14:55)
--- NOTE | 2016-08-19 15:11 | GENMEDPROG ---
Chief Complaint: Sitting up in chair. No significant change. Hospice to see in consultation today Notes Reviewed: Yes Events from last night noted and discussed with Clinical Staff Current Medication List: Reviewed Currently: Reports: Cough, SOB, Tobacco Use/Hx (Former). Denies: Sputum, Nausea and Vomiting, Abdominal Pain DVT Prophylaxis: Yes - Physical Examination Vital Signs and I&O: Last Vital Signs Temp 97.8 F 08/19/16 06:00 Pulse 140 H 08/19/16 13:03 Resp 20 08/19/16 13:03 BP 135/91 08/19/16 13:03 Pulse Ox 93 08/19/16 13:03 Oxygen Pulse Oxygen Saturation 93 O2 Device Nasal Cannula Oxygen Flow Rate 2 Fraction of Inspired Oxygen ( FIO2) Intake & Output 08/16/16 08/17/16 08/18/16 08/19/16 23:59 23:59 23:59 23:59 Intake Total 3334 3571 2380 440 Output Total 4300 4925 3550 1300 Balance -966 -1354 -1170 -860 Patient's weight 60.866 kg 60.384 kg 59.506 kg 59.874 kg General: Alert, Oriented x3, Mild distress. negative: Well appearing, Well nourished HEENT: Normal (Normocephalic, atraumatic;EOMI.Sclera white, Nares patent, without discharge or bleeding. No oropharyngeal lesions or erythema. Mucous membranes are dry.), PERRLA, EOMI, Anicteric Sclera Neck: Non-tender, Full range of motion, Normal Trachea alignment, Normal inspection (No cervical lymphadenopathy. No supraclavicular lymphadenopathy.), No Masses palpable, Supple Lymphatics: Normal (No lymph node swelling or pain.) Respiratory: Accessory Muscle Use, Rhonchi, Wheezes (bilateral, very tight) Cardiovascular: Regular rate and rhythm (No bradycardia or tachycardia), Normal S1, No Gallops,Rubs/Murmurs, Normal S2, Good Pedal Pulses (DP pulses 2+ bilaterally) GI: Normal bowel sounds (normal active sounds), Soft (non-distended), Non tender , No hepatospenomegaly, No masses Extremities/Musculoskeletal: Normal pulses (DP pulses 2+ bilaterally) Skin: Warm,Dry and Intact, No rashes, No significant lesion Neurological: Strength at 5/5 X4 ext (Motor 5/5 throughout.), Normal tone, Cranial nerves 3-12 NL ( 2-12 grossly intact.) Psych/Mental Status: Agitated, Anxious, Restless. negative: Normal Affect - Assessment (1) Acute respiratory failure with hypoxia and hypercarbia Acute J96.01 - ACUTE RESPIRATORY FAILURE WITH HYPOXIA; J96.02 - ACUTE RESPIRATORY FAILURE WITH HYPERCAPNIA Comment/Plan: Oxygenation is much better. However clinically no significant improvement. He is very reluctant to work with physical therapy or increase activity levels. Stressed the importance of building strength and endurance. Continue other current care (2) COPD exacerbation Acute J44.1 - CHRONIC OBSTRUCTIVE PULMONARY DISEASE W (ACUTE) EXACERBATION Comment/Plan: Continue IV steroids, nebulizer treatments and pulmonary toilet. Hospice to see in consultation today (3) DDD (degenerative disc disease), lumbosacral Chronic M51.37 - OTHER INTERVERTEBRAL DISC DEGENERATION, LUMBOSACRAL REGION Comment/Plan: Back pain under control (4) Hyperlipidemia Chronic E78.5 - HYPERLIPIDEMIA, UNSPECIFIED Qualifiers: Hyperlipidemia type: unspecified Qualified Code(s): E78.5 - Hyperlipidemia , unspecified Comment/Plan: Continue home medications (5) Hypertension Chronic I10 - ESSENTIAL (PRIMARY) HYPERTENSION Qualifiers: Hypertension type: essential hypertension Qualified Code(s): I10 - Essential (primary) hypertension Comment/Plan: Continue medications Case Care Discussed with: Patient, Nursing Staff, Physical Therapy, Resource Management, Respiratory Therapy, Instrument Sterilizer
[2016-08-19 16:05] VITALS: BMI 17.9
[2016-08-19] MEDS: PROBIOTIC BLEND TAB PO SCH ×2 (16:06→17:25)
[2016-08-19] MEDS: ACETAMINOPHEN 325 MG/TAB TABLET PO PRN (16:06)
[2016-08-20] MEDS: SODIUM CHLORIDE 0.9% 3 ML FLUSH FLUSH SCH ×2 (04:21→18:04)
[2016-08-20] MEDS: OXYCODONE HCL 5 MG TABLET PO PRN ×4 (05:48→23:43)
--- NOTE | 2016-08-20 08:04 | PCM.PULM ---
Chief Complaint: Uneventful overnight. Current complaints:SOB,BUSCH,cough,sputum. Current medication list reviewed:yes Notes reviewed:yes, Events from last night noted and discussed with Clinical Staff DVT prophylaxis:yes - Physical Examination Vital Signs and I&O: Last Vital Signs Temp 98 F 08/20/16 05:15 Pulse 81 08/20/16 05:15 Resp 18 08/20/16 05:15 BP 172/92 08/20/16 05:15 Pulse Ox 98 08/20/16 05:15 Oxygen Pulse Oxygen Saturation 98 O2 Device Room Air Oxygen Flow Rate 2 Fraction of Inspired Oxygen ( FIO2) Intake & Output 08/17/16 08/18/16 08/19/16 08/20/16 23:59 23:59 23:59 23:59 Intake Total 3571 2380 590 743 Output Total 4927 3550 1850 750 Balance -1354 -1170 -1260 -7 Patient's weight 60.384 kg 59.506 kg 59.874 kg 57.408 kg General: Alert, Oriented x3, Cooperative, No acute distress, Fatigue Respiratory: Normal - CTA, Diminished Cardiovascular: Regular rate, Regular rate and rhythm, Normal S1, No Gallops, Rubs/Murmurs, Normal S2 GI: Normal bowel sounds, Soft, Non tender, No hepatospenomegaly, No masses Extremities/Musculoskeletal: Normal pulses Skin: Warm,Dry and Intact, No rashes, No breakdown Neurological: Normal Steady Gait, Normal speech, Strength at 5/5 X4 ext, Cranial nerves 3-12 NL Psych/Mental Status: Normal Affect, Anxious Result Diagrams: 08/18/16 07:10 08/18/16 07:10 Lab/DI/Studies Reviewed: Medications: Methylprednisolone Sodium Succinate (Solu-Medrol) 40 mg IV Q12H [facility]JANA Stop: 08/28/16 16:59 Last Admin: 08/15/16 08:17 Dose: 40 mg Furosemide (Lasix) 40 mg IV LASBID [facility]JANA Stop: 08/26/16 16:59 Last Admin: 08/15/16 08:17 Dose: 40 mg Lact Acid/Bifidobact/Lact [place]/Streptoc Th (Katalina Q) 1 tab PO BIDLS [facility] Stop: 08/27/16 16:59 Last Admin: 08/18/16 17:05 Dose: 1 tab Promethazine HCl (Phenergan) 12.5 mg IV Q6H PRN; Protocol PRN Reason: Nausea/Vomiting - Alternative Stop: 08/18/16 16:59 Fluconazole (Diflucan) 200 mg PO DAILY [facility] Stop: 08/21/16 16:59 Last Admin: 08/19/16 10:41 Dose: 200 mg Acetaminophen (Tylenol Suppository) 650 mg MD Q6H PRN; Protocol PRN Reason: Mild Pain or Fever above 100.4 Stop: 08/18/16 16:59 Acetaminophen (Tylenol Tablet) 650 mg PO Q6H PRN; Protocol PRN Reason: Mild Pain or Fever above 100.4 Stop: 08/18/16 16:59 Albuterol/Ipratropium (Duoneb) 3 ml NEB Q2H PRN PRN Reason: Wheezing Stop: 08/18/16 16:59 Last Admin: 08/05/16 11:48 Dose: 3 ml Albuterol/Ipratropium (Duoneb) 3 ml NEB RTQ6 [facility] Stop: 08/18/16 16:59 Last Admin: 08/06/16 07:28 Dose: 3 ml Atorvastatin Calcium (Lipitor) 10 mg PO DAILY [facility] Stop: 08/19/16 08:59 Last Admin: 08/06/16 08:42 Dose: 10 mg Benzonatate (Tessalon) 200 mg PO Q8H PRN PRN Reason: Cough - First Option Stop: 08/18/16 16:59 Lisinopril (Zestril) 20 mg PO DAILY [facility] Stop: 08/19/16 08:59 Last Admin: 08/06/16 08:42 Dose: 20 mg Montelukast Sodium (Singulair) 10 mg PO DAILY [facility] Stop: 08/19/16 08:59 Last Admin: 08/06/16 08:42 Dose: 10 mg Nicotine (Nicoderm) 21 mg TOP Q24H [facility] Stop: 08/19/16 00:59 Last Admin: 08/05/16 23:19 Dose: Not Given Ondansetron HCl (Zofran) 4 mg IV Q6H PRN PRN Reason: Nausea/Vomiting - First Option Stop: 08/18/16 16:59 Senna/Docusate Sodium (Senokot S Or Jade Colace) 1 tab PO BID PRN PRN Reason: Constipation - First Option Stop: 08/18/16 16:59 Simethicone (Mylicon, Mylanta Gas) 80 mg PO Q3H PRN PRN Reason: Intestinal Gas Stop: 08/18/16 16:59 Temazepam (Restoril) 15 mg PO HS PRN PRN Reason: Sleep or Insomnia Stop: 08/18/16 16:59 Fluticasone Propionate (Flonase Nasal [place]) 1 sprays MARGARITA BID Stop: 08/09/16 12:10 Levofloxacin/Dextrose (Levaquin 750 Mg) 750 mg in 150 mls @ 100 mls/hr IV Q24H SANJANA Stop: 08/21/16 16:59 Last Admin: 08/19/16 21:28 Dose: 100 mls/hr - Assessment/Plan (1) Acute respiratory failure with hypoxia and hypercarbia Acute J96.01 - ACUTE RESPIRATORY FAILURE WITH HYPOXIA; J96.02 - ACUTE RESPIRATORY FAILURE WITH HYPERCAPNIA Comment/Plan: I would continue the current supportive care prognosis remains poor on this patient and he is looking into going to hospice versus LTAC placement I would continue the patient on Lasix to keep him in negative balance I would continue the current diuresis, Very slow movement in clinical condition continue IV steroids,IV antibiotics, duo nebulizer treatment, supplemental oxygen, DVT/GI prophylaxis. Continue his other care and patient has guarded long-term prognosis . (2) Acute exacerbation of chronic obstructive airways disease Acute J44.1 - CHRONIC OBSTRUCTIVE PULMONARY DISEASE W (ACUTE) EXACERBATION Comment/Plan: No change in treatment, Improving slowly. Would continue current therapy with IV steroids, IV antibiotics, Duo neb treatment and supplemental oxygen. Would continue full supportive care. (3) Anxiety Chronic F41.9 - ANXIETY DISORDER, UNSPECIFIED Comment/Plan: stable. Continue Xanax prn
[2016-08-20] MEDS: FLUCONAZOLE 100 MG TAB PO SCH (08:30)
[2016-08-20] MEDS: FLUTICASONE PROPIONATE 16 GM BOT NAS SCH ×2 (08:30→21:31)
[2016-08-20] MEDS: LISINOPRIL 20 MG TAB PO SCH (08:30)
[2016-08-20] MEDS: FUROSEMIDE 40 MG/4 ML VIAL IV SCH ×2 (08:30→18:03)
[2016-08-20] MEDS: MONTELUKAST SODIUM 10 MG TAB PO SCH (08:30)
[2016-08-20] MEDS: METHYLPREDNISOLONE 40 MG/1 ML VIAL IV SCH ×2 (08:30→21:32)
[2016-08-20] MEDS: ATORVASTATIN 10 MG TAB PO SCH (08:30)
[2016-08-20] MEDS: PROBIOTIC BLEND TAB PO SCH ×2 (12:04→18:03)
--- NOTE | 2016-08-20 13:28 | GENMEDPROG ---
Chief Complaint: No significant change. Very odd behavior with intermittently variable responses to questions. States that Dr. Mccormick told him not to move. Notes Reviewed: Yes Events from last night noted and discussed with Clinical Staff Current Medication List: Reviewed Currently: Reports: Cough, SOB, Tobacco Use/Hx (Former). Denies: Sputum, Nausea and Vomiting, Abdominal Pain DVT Prophylaxis: Yes - Physical Examination Vital Signs and I&O: Last Vital Signs Temp 98 F 08/20/16 05:15 Pulse 81 08/20/16 05:15 Resp 18 08/20/16 05:15 BP 172/92 08/20/16 05:15 Pulse Ox 97 08/20/16 09:30 Oxygen Pulse Oxygen Saturation 97 O2 Device Nasal Cannula Oxygen Flow Rate 2 Fraction of Inspired Oxygen ( FIO2) Intake & Output 08/17/16 08/18/16 08/19/16 08/20/16 23:59 23:59 23:59 23:59 Intake Total 3571 2380 590 983 Output Total 4925 3550 1850 1875 Balance -1354 -1170 -1260 -892 Patient's weight 60.384 kg 59.506 kg 59.874 kg 57.408 kg General: Alert, Oriented x3, Mild distress. negative: Well appearing, Well nourished HEENT: Normal (Normocephalic, atraumatic;EOMI.Sclera white, Nares patent, without discharge or bleeding. No oropharyngeal lesions or erythema. Mucous membranes are dry.), PERRLA, EOMI, Anicteric Sclera Neck: Non-tender, Full range of motion, Normal Trachea alignment, Normal inspection (No cervical lymphadenopathy. No supraclavicular lymphadenopathy.), No Masses palpable, Supple Lymphatics: Normal (No lymph node swelling or pain.). negative: Adenopathy Respiratory: Rhonchi Cardiovascular: Regular rate and rhythm (No bradycardia or tachycardia), Normal S1, No Gallops,Rubs/Murmurs, Normal S2, Good Pedal Pulses (DP pulses 2+ bilaterally) GI: Normal bowel sounds (normal active sounds), Soft (non-distended), Non tender , No hepatospenomegaly, No masses Extremities/Musculoskeletal: Normal pulses (DP pulses 2+ bilaterally) Skin: Warm,Dry and Intact, No rashes, No significant lesion Neurological: Strength at 5/5 X4 ext (Motor 5/5 throughout.), Normal tone, Cranial nerves 3-12 NL ( 2-12 grossly intact.) Psych/Mental Status: Agitated, Anxious, Restless. negative: Normal Affect - Assessment (1) Acute respiratory failure with hypoxia and hypercarbia Acute J96.01 - ACUTE RESPIRATORY FAILURE WITH HYPOXIA; J96.02 - ACUTE RESPIRATORY FAILURE WITH HYPERCAPNIA Comment/Plan: Oxygenation is much better. However clinically no significant improvement. He is very reluctant to work with physical therapy or increase activity levels. Stressed the importance of building strength and endurance. Continue other current care (2) COPD exacerbation Acute J44.1 - CHRONIC OBSTRUCTIVE PULMONARY DISEASE W (ACUTE) EXACERBATION Comment/Plan: Continue IV steroids, nebulizer treatments and pulmonary toilet. Hospice to see in consultation today (3) DDD (degenerative disc disease), lumbosacral Chronic M51.37 - OTHER INTERVERTEBRAL DISC DEGENERATION, LUMBOSACRAL REGION Comment/Plan: Back pain under control (4) Hyperlipidemia Chronic E78.5 - HYPERLIPIDEMIA, UNSPECIFIED Qualifiers: Hyperlipidemia type: unspecified Qualified Code(s): E78.5 - Hyperlipidemia , unspecified Comment/Plan: Continue home medications (5) Hypertension Chronic I10 - ESSENTIAL (PRIMARY) HYPERTENSION Qualifiers: Hypertension type: essential hypertension Qualified Code(s): I10 - Essential (primary) hypertension Comment/Plan: Continue medications Case Care Discussed with: Patient, Nursing Staff, Physical Therapy, Resource Management, Respiratory Therapy, [employer]
[2016-08-20] MEDS: Levofloxacin 750 mg/150 ml D5W 750 MG/150 ML RTU IV SCH (21:31)
[2016-08-21] MEDS: NICOTINE 21 MG PATCH TOP SCH (00:52)
[2016-08-21] MEDS: SODIUM CHLORIDE 0.9% 3 ML FLUSH FLUSH SCH ×2 (05:28→18:02)
[2016-08-21] MEDS: OXYCODONE HCL 5 MG TABLET PO PRN ×3 (05:47→18:01)
[2016-08-21] MEDS: FUROSEMIDE 40 MG/4 ML VIAL IV SCH ×2 (09:26→15:30)
[2016-08-21] MEDS: MONTELUKAST SODIUM 10 MG TAB PO SCH (09:28)
[2016-08-21] MEDS: LISINOPRIL 20 MG TAB PO SCH (09:29)
[2016-08-21] MEDS: FLUTICASONE PROPIONATE 16 GM BOT NAS SCH ×2 (09:29→23:14)
[2016-08-21] MEDS: ATORVASTATIN 10 MG TAB PO SCH (09:30)
[2016-08-21] MEDS ORDERED: Medication Special Instructions SCH (11:00)
[2016-08-21] MEDS: FLUCONAZOLE 100 MG TAB PO SCH (11:42)
[2016-08-21] MEDS: METHYLPREDNISOLONE 40 MG/1 ML VIAL IV SCH ×2 (11:42→23:15)
[2016-08-21] MEDS: PROBIOTIC BLEND TAB PO SCH ×2 (11:43→18:01)
--- NOTE | 2016-08-21 14:10 | PCM.PULM ---
Chief Complaint: Uneventful overnight Patient breathing is a little better. Patient sitting on chair today. Hospice care was consulted yesterday Medication list and notes reviewed:yes - Physical Examination Vital Signs and I&O: Last Vital Signs Temp 97.6 F 08/21/16 06:00 Pulse 89 08/21/16 06:00 Resp 18 08/21/16 06:00 BP 140/88 08/21/16 06:00 Pulse Ox 90 L 08/21/16 12:29 Oxygen Pulse Oxygen Saturation 90 O2 Device Nasal Cannula Oxygen Flow Rate 2 Fraction of Inspired Oxygen ( FIO2) Intake & Output 08/18/16 08/19/16 08/20/16 08/21/16 23:59 23:59 23:59 23:59 Intake Total 2380 590 1837 331 Output Total 9565 0490 8695 1999 Balance -8339 -7169 -9690 -7148 Patient's weight 59.506 kg 59.874 kg 57.408 kg 57.107 kg General: Alert, Oriented x3, No acute distress, Fatigue Respiratory: Normal - CTA, Diminished Cardiovascular: Regular rate, Regular rate and rhythm, Normal S1, No Gallops, Rubs/Murmurs, Normal S2 GI: Normal bowel sounds, Soft, Non tender, No hepatospenomegaly, No masses Extremities/Musculoskeletal: Normal pulses Skin: Warm,Dry and Intact, No rashes, No breakdown, No significant lesion Neurological: Normal Steady Gait, Normal speech, Strength at 5/5 X4 ext, Normal tone, Cranial nerves 3-12 NL, Reflexes 2+ Psych/Mental Status: Appropriate, Cooperative, Anxious (improved) Result Diagrams: 08/18/16 07:10 08/18/16 07:10 Lab/DI/Studies Reviewed: Medications: Methylprednisolone Sodium Succinate (Solu-Medrol) 40 mg IV Q12H [facility] Stop: 08/28/16 16:59 Last Admin: 08/15/16 08:17 Dose: 40 mg Furosemide (Lasix) 40 mg IV LASBID [facility] Stop: 08/26/16 16:59 Last Admin: 08/15/16 08:17 Dose: 40 mg Lact Acid/Bifidobact/Lact [place]/Streptoc Th (Katalina Q) 1 tab PO BIDLS [facility] Stop: 08/27/16 16:59 Last Admin: 08/18/16 17:05 Dose: 1 tab Promethazine HCl (Phenergan) 12.5 mg IV Q6H PRN; Protocol PRN Reason: Nausea/Vomiting - Alternative Stop: 08/18/16 16:59 Fluconazole (Diflucan) 200 mg PO DAILY [facility] Stop: 08/21/16 16:59 Last Admin: 08/19/16 10:41 Dose: 200 mg Acetaminophen (Tylenol Suppository) 650 mg [place] Q6H PRN; Protocol PRN Reason: Mild Pain or Fever above 100.4 Stop: 08/18/16 16:59 Acetaminophen (Tylenol Tablet) 650 mg PO Q6H PRN; Protocol PRN Reason: Mild Pain or Fever above 100.4 Stop: 08/18/16 16:59 Albuterol/Ipratropium (Duoneb) 3 ml NEB Q2H PRN PRN Reason: Wheezing Stop: 08/18/16 16:59 Last Admin: 08/05/16 11:48 Dose: 3 ml Albuterol/Ipratropium (Duoneb) 3 ml NEB RTQ6 [facility] Stop: 08/18/16 16:59 Last Admin: 08/06/16 07:28 Dose: 3 ml Alprazolam (Xanax) 0.5 mg PO BID PRN PRN Reason: Anxiety Stop: 08/18/16 21:34 Atorvastatin Calcium (Lipitor) 10 mg PO DAILY [facility] Stop: 08/19/16 08:59 Last Admin: 08/06/16 08:42 Dose: 10 mg Benzonatate (Tessalon) 200 mg PO Q8H PRN PRN Reason: Cough - First Option Stop: 08/18/16 16:59 Lisinopril (Zestril) 20 mg PO DAILY [facility] Stop: 08/19/16 08:59 Last Admin: 08/06/16 08:42 Dose: 20 mg Montelukast Sodium (Singulair) 10 mg PO DAILY [facility] Stop: 08/19/16 08:59 Last Admin: 08/06/16 08:42 Dose: 10 mg Nicotine (Nicoderm) 21 mg TOP Q24H [facility] Stop: 08/19/16 00:59 Last Admin: 08/05/16 23:19 Dose: Not Given Ondansetron HCl (Zofran) 4 mg IV Q6H PRN PRN Reason: Nausea/Vomiting - First Option Stop: 08/18/16 16:59 Senna/Docusate Sodium (Senokot S Or Jade Colace) 1 tab PO BID PRN PRN Reason: Constipation - First Option Stop: 08/18/16 16:59 Simethicone (Mylicon, Mylanta Gas) 80 mg PO Q3H PRN PRN Reason: Intestinal Gas Stop: 08/18/16 16:59 Temazepam (Restoril) 15 mg PO HS PRN PRN Reason: Sleep or Insomnia Stop: 08/18/16 16:59 Fluticasone Propionate (Flonase Nasal [place]) 1 sprays MARGARITA BID Stop: 08/09/16 12:10 Levofloxacin (Levaquin) 750 mg PO Q24H [facility] Stop: 08/28/16 16:59 Oxycodone HCl (Oxycodone Immediate Release (Oxyir)) 10 mg PO Q6H PRN PRN Reason: MODERATE TO SEVERE PAIN Stop: 08/26/16 16:51 Last Admin: 08/21/16 11:46 Dose: 10 mg - Assessment/Plan (1) Acute exacerbation of chronic obstructive airways disease Acute J44.1 - CHRONIC OBSTRUCTIVE PULMONARY DISEASE W (ACUTE) EXACERBATION Comment/Plan: Breathing is slowly improving. Patient Hospice house is consulted and pending and he is also a good candidate for LTAC. Would continue current therapy with duo nebulizer treatment, supplemental oxygen, IV steroids, antibiotics, DVT/GI prophylaxis. Continue full supportive care at this time (2) Acute respiratory failure with hypoxia and hypercarbia Acute J96.01 - ACUTE RESPIRATORY FAILURE WITH HYPOXIA; J96.02 - ACUTE RESPIRATORY FAILURE WITH HYPERCAPNIA Comment/Plan: Would continue diuretic, IV steroids, nebulizer, oxygen and continue full supportive care (3) Anxiety Chronic F41.9 - ANXIETY DISORDER, UNSPECIFIED Comment/Plan: stable. Continue Xanax prn
[2016-08-21] MEDS: LEVOFLOXACIN 750 MG TAB PO SCH (23:15)
--- NOTE | 2016-08-21 23:15 | GENMEDPROG ---
Chief Complaint: I advise patient to get out of chair and ambulate for he shall be discharged in a.m. Notes Reviewed: Yes Events from last night noted and discussed with Clinical Staff Current Medication List: Reviewed Currently: Reports: Cough, SOB, Tobacco Use/Hx (Former). Denies: Sputum, Nausea and Vomiting, Abdominal Pain DVT Prophylaxis: Yes - Physical Examination Vital Signs and I&O: Last Vital Signs Temp 97.1 F L 08/21/16 22:00 Pulse 120 H 08/21/16 22:00 Resp 18 08/21/16 22:00 BP 102/81 08/21/16 22:00 Pulse Ox 93 08/21/16 22:00 Oxygen Pulse Oxygen Saturation 93 O2 Device Nasal Cannula Oxygen Flow Rate 2 Fraction of Inspired Oxygen ( FIO2) Intake & Output 08/18/16 08/19/16 08/20/16 08/21/16 23:59 23:59 23:59 23:59 Intake Total 2380 590 1837 1590 Output Total 3550 1850 2975 3550 Balance -8880 -6830 -7178 -2234 Patient's weight 59.506 kg 59.874 kg 57.408 kg 57.107 kg General: Alert, Oriented x3, Mild distress. negative: Well appearing, Well nourished HEENT: Normal (Normocephalic, atraumatic;EOMI.Sclera white, Nares patent, without discharge or bleeding. No oropharyngeal lesions or erythema. Mucous membranes are dry.), PERRLA, EOMI, Anicteric Sclera Neck: Non-tender, Full range of motion, Normal Trachea alignment, Normal inspection (No cervical lymphadenopathy. No supraclavicular lymphadenopathy.), No Masses palpable, Supple Lymphatics: Normal (No lymph node swelling or pain.). negative: Adenopathy Respiratory: Rhonchi Cardiovascular: Regular rate and rhythm (No bradycardia or tachycardia), Normal S1, No Gallops,Rubs/Murmurs, Normal S2, Good Pedal Pulses (DP pulses 2+ bilaterally) GI: Normal bowel sounds (normal active sounds), Soft (non-distended), Non tender , No hepatospenomegaly, No masses Extremities/Musculoskeletal: Normal pulses (DP pulses 2+ bilaterally) Skin: Warm,Dry and Intact, No rashes, No significant lesion Neurological: Strength at 5/5 X4 ext (Motor 5/5 throughout.), Normal tone, Cranial nerves 3-12 NL ( 2-12 grossly intact.) Psych/Mental Status: Agitated, Anxious, Restless. negative: Normal Affect Lab/DI/Studies Reviewed: 08/18/16 07:10 08/18/16 07:10 - Assessment (1) COPD (chronic obstructive pulmonary disease) with acute bronchitis Acute J44.0 - CHRONIC OBSTRUCTIVE PULMON DISEASE W ACUTE LOWER RESP INFCT Comment/Plan: Continue present care. Is certainly is taking a long time to improve on the present therapy. (2) Hyperlipidemia Chronic E78.5 - HYPERLIPIDEMIA, UNSPECIFIED Qualifiers: Hyperlipidemia type: unspecified Qualified Code(s): E78.5 - Hyperlipidemia , unspecified Comment/Plan: Continue home medications (3) DDD (degenerative disc disease), lumbosacral Chronic M51.37 - OTHER INTERVERTEBRAL DISC DEGENERATION, LUMBOSACRAL REGION Comment/Plan: Back pain under control (4) Hypertension Chronic I10 - ESSENTIAL (PRIMARY) HYPERTENSION Qualifiers: Hypertension type: essential hypertension Qualified Code(s): I10 - Essential (primary) hypertension Comment/Plan: Continue medications (5) Emphysema lung Chronic J43.9 - EMPHYSEMA, UNSPECIFIED Qualifiers: Emphysema type: centrilobular Qualified Code(s): J43.2 - Centrilobular emphysema (6) Acute respiratory failure with hypoxia and hypercarbia Acute J96.01 - ACUTE RESPIRATORY FAILURE WITH HYPOXIA; J96.02 - ACUTE RESPIRATORY FAILURE WITH HYPERCAPNIA Comment/Plan: Oxygenation is much better. However clinically no significant improvement. He is very reluctant to work with physical therapy or increase activity levels. Stressed the importance of building strength and endurance. Continue other current care Disposition Plan: Likely home in a.m. Case Care Discussed with: Patient, Nursing Staff, Resource Management Education/Counseling Given To: Patient Education/Counseling Given Regarding: Diagnosis Total Time: 38 min Critical Care: No Code: 26211 (12+)
[2016-08-22] MEDS: NICOTINE 21 MG PATCH TOP SCH (00:56)
[2016-08-22] MEDS: OXYCODONE HCL 5 MG TABLET PO PRN ×4 (00:56→19:32)
[2016-08-22] MEDS: SODIUM CHLORIDE 0.9% 3 ML FLUSH FLUSH SCH ×2 (04:28→17:33)
[2016-08-22 06:11] LABS: MPV 9.4 fL (7.4-10.4)
[2016-08-22 06:48] LABS: BLOOD UREA NITROGEN 47 MG/DL (9-20); CALCIUM 8.7 MG/DL (8.4-10.2); CALCULATED OSMOLALITY 281 MOs/Kg (270-290); CHLORIDE 90 mEq/L (98-107); GLUCOSE 301 MG/DL (70-99); SODIUM LEVEL 134 mEq/L (137-146)
[2016-08-22 07:12] LABS: SEG NEUTROPHIL 86 % (45-76)
[2016-08-22 07:22] VITALS: BP 132/98; PULSE 108; TEMP 97.9
--- NOTE | 2016-08-22 07:56 | PCM.PULM ---
Chief Complaint: Respiratory failure acute on chronic COPD exacerbation Anxiety Patient sitting on chair. Family at bedside. Breathing is fair. Improving very slowly if at all Current medication list reviewed:yes Notes reviewed:yes - Physical Examination Vital Signs and I&O: Last Vital Signs Temp 97.9 F 08/22/16 06:00 Pulse 108 08/22/16 06:00 Resp 18 08/22/16 06:00 BP 132/98 08/22/16 06:00 Pulse Ox 95 08/22/16 06:00 Oxygen Pulse Oxygen Saturation 95 O2 Device Nasal Cannula Oxygen Flow Rate 2 Fraction of Inspired Oxygen ( FIO2) Intake & Output 08/19/16 08/20/16 08/21/16 08/22/16 23:59 23:59 23:59 23:59 Intake Total 590 1837 1642 Output Total 4409 9222 7158 600 Balance -1260 -1138 -1908 -600 Patient's weight 59.874 kg 57.408 kg 57.107 kg 55.883 kg General: Alert, Oriented x3, Cooperative, No acute distress, Fatigue Respiratory: Normal - CTA, Diminished Cardiovascular: Regular rate, Regular rate and rhythm, Normal S1, No Gallops, Rubs/Murmurs, Normal S2 GI: Normal bowel sounds, Soft, Non tender, No hepatospenomegaly, No masses Extremities/Musculoskeletal: Normal pulses Skin: Warm,Dry and Intact, No rashes, No significant lesion Neurological: Normal Steady Gait, Normal speech, Strength at 5/5 X4 ext, Cranial nerves 3-12 NL, Reflexes 2+ Psych/Mental Status: Normal Affect Result Diagrams: 08/22/16 05:20 08/22/16 05:20 Labs (last 24 hours): Laboratory Results - last 24 hr 08/22/16 08/22/16 05:20 05:20 WBC 17.7 H RBC 4.09 L Hgb 12.2 L Hct 36.9 L MCV 90 MCH 29.9 MCHC 33.1 RDW 13.3 Plt Count 121 L MPV 9.4 Neut % (Auto) Cancelled Lymph % (Auto) Cancelled [place] % (Auto) Cancelled Eos % (Auto) Cancelled Baso % (Auto) Cancelled Absolute Neuts (auto) Cancelled Absolute Lymphs (auto) Cancelled Seg Neuts % (Manual) 86 H Band Neutrophils % 3 Lymphocytes % (Manual) 8 L Monocytes % (Manual) 3 Absolute Neutrophils 15.75 H Absolute Lymphocytes 1.42 Vacuolated Neuts Few Toxic Granulation Tr Platelet Estimate Dec RBC Morphology Reviewed this admiss Sodium 134 L Potassium 4.5 Chloride 90 L Carbon Dioxide 36 H Anion Gap 13 BUN 47 H Creatinine 0.50 L Estimated GFR (MDRD) > 60 Glucose 301 H Calculated Osmolality 281 Calcium 8.7 Lab/DI/Studies Reviewed: Cxray: 2 view Chest x-ray was seen personally hyperinflated lung field with no significant changes noted Medications: Oxycodone HCl (Oxycodone Immediate Release (Oxyir)) 10 mg PO Q8H PRN PRN Reason: MODERATE TO SEVERE PAIN Stop: 08/19/16 01:42 Last Admin: 08/12/16 09:56 Dose: 10 mg Methylprednisolone Sodium Succinate (Solu-Medrol) 40 mg IV Q12H [facility] Stop: 08/28/16 16:59 Last Admin: 08/15/16 08:17 Dose: 40 mg Lact Acid/Bifidobact/Lact [place]/Streptoc Th (Katalina Q) 1 tab PO BIDLS [facility] Stop: 08/27/16 16:59 Last Admin: 08/18/16 17:05 Dose: 1 tab Levofloxacin (Levaquin) 750 mg PO Q24H [facility] Stop: 08/28/16 16:59 Promethazine HCl (Phenergan) 12.5 mg IV Q6H PRN; Protocol PRN Reason: Nausea/Vomiting - Alternative Stop: 08/18/16 16:59 Fluconazole (Diflucan) 200 mg PO DAILY [facility] Stop: 08/21/16 16:59 Last Admin: 08/19/16 10:41 Dose: 200 mg Acetaminophen (Tylenol Suppository) 650 mg [place] Q6H PRN; Protocol PRN Reason: Mild Pain or Fever above 100.4 Stop: 08/18/16 16:59 Acetaminophen (Tylenol Tablet) 650 mg PO Q6H PRN; Protocol PRN Reason: Mild Pain or Fever above 100.4 Stop: 08/18/16 16:59 Albuterol/Ipratropium (Duoneb) 3 ml NEB Q2H PRN PRN Reason: Wheezing Stop: 08/18/16 16:59 Last Admin: 08/05/16 11:48 Dose: 3 ml Albuterol/Ipratropium (Duoneb) 3 ml NEB RTQ6 [facility] Stop: 08/18/16 16:59 Last Admin: 08/06/16 07:28 Dose: 3 ml Atorvastatin Calcium (Lipitor) 10 mg PO DAILY [facility] Stop: 08/19/16 08:59 Last Admin: 08/06/16 08:42 Dose: 10 mg Benzonatate (Tessalon) 200 mg PO Q8H PRN PRN Reason: Cough - First Option Stop: 08/18/16 16:59 Lisinopril (Zestril) 20 mg PO DAILY [facility] Stop: 08/19/16 08:59 Last Admin: 08/06/16 08:42 Dose: 20 mg Montelukast Sodium (Singulair) 10 mg PO DAILY [facility] Stop: 08/19/16 08:59 Last Admin: 08/06/16 08:42 Dose: 10 mg Nicotine (Nicoderm) 21 mg TOP Q24H [facility] Stop: 08/19/16 00:59 Last Admin: 08/05/16 23:19 Dose: Not Given Ondansetron HCl (Zofran) 4 mg IV Q6H PRN PRN Reason: Nausea/Vomiting - First Option Stop: 08/18/16 16:59 Senna/Docusate Sodium (Senokot S Or Jade Colace) 1 tab PO BID PRN PRN Reason: Constipation - First Option Stop: 08/18/16 16:59 Simethicone (Mylicon, Mylanta Gas) 80 mg PO Q3H PRN PRN Reason: Intestinal Gas Stop: 08/18/16 16:59 Temazepam (Restoril) 15 mg PO HS PRN PRN Reason: Sleep or Insomnia Stop: 08/18/16 16:59 Fluticasone Propionate (Flonase Nasal [place]) 1 sprays MARGARITA BID Stop: 08/09/16 12:10 Fluconazole (Diflucan) 200 mg PO DAILY [facility] Stop: 08/28/16 23:59 Last Admin: 08/22/16 08:31 Dose: 200 mg Furosemide (Lasix) 40 mg IV LASBID [facility] Stop: 08/26/16 16:59 Last Admin: 08/13/16 08:08 Dose: 40 mg - Assessment/Plan (1) Acute exacerbation of chronic obstructive airways disease Acute J44.1 - CHRONIC OBSTRUCTIVE PULMONARY DISEASE W (ACUTE) EXACERBATION Comment/Plan: Uneventful overnight. Patient Hospice house is consulted and pending and he is also a good candidate for LTAC. Would continue current therapy with duo nebulizer treatment, supplemental oxygen, IV steroids, antibiotics, DVT/GI prophylaxis. Continue full supportive care at this time (2) Acute respiratory failure with hypoxia and hypercarbia Acute J96.01 - ACUTE RESPIRATORY FAILURE WITH HYPOXIA; J96.02 - ACUTE RESPIRATORY FAILURE WITH HYPERCAPNIA Comment/Plan: Would continue diuretic, IV steroids, nebulizer, oxygen and continue full supportive care (3) Anxiety Chronic F41.9 - ANXIETY DISORDER, UNSPECIFIED Comment/Plan: stable. Continue Xanax prn
--- NOTE | 2016-08-22 08:26 | DIRPT ---
CLINICAL DATA: Pneumonia EXAM: CHEST 2 VIEW COMPARISON: 08/14/2016 FINDINGS: Small reticulated opacity in the medial left lower lobe which was not seen previously or at chest CT from July 2016. Hyperinflation with apical emphysema. Remote granulomatous disease. Normal heart size and stable aortic contours. IMPRESSION: 1. New small opacity in the medial left lower lobe indeterminate between atelectasis and new infection. 2. Emphysema. Electronically Signed By: Percy Meyers M.D. On: 08/22/2016 08:23
[2016-08-22] MEDS: FUROSEMIDE 40 MG/4 ML VIAL IV SCH ×2 (08:30→17:32)
[2016-08-22] MEDS: FLUTICASONE PROPIONATE 16 GM BOT NAS SCH ×2 (08:31→19:34)
[2016-08-22] MEDS: MONTELUKAST SODIUM 10 MG TAB PO SCH (08:31)
[2016-08-22] MEDS: FLUCONAZOLE 100 MG TAB PO SCH (08:31)
[2016-08-22] MEDS: LISINOPRIL 20 MG TAB PO SCH (08:31)
[2016-08-22] MEDS: ATORVASTATIN 10 MG TAB PO SCH (08:31)
[2016-08-22] MEDS: PROBIOTIC BLEND TAB PO SCH ×2 (11:24→17:33)
[2016-08-22] MEDS: METHYLPREDNISOLONE 40 MG/1 ML VIAL IV SCH (11:24)
--- NOTE | 2016-08-22 17:10 | PCM.DCS92 ---
- Final/Secondary Discharge Diagnosis (1) COPD (chronic obstructive pulmonary disease) with acute bronchitis Acute J44.0 - CHRONIC OBSTRUCTIVE PULMON DISEASE W ACUTE LOWER RESP INFCT Present on Admission: Yes Comment: Continue present care. Is certainly is taking a long time to improve on the present therapy. (2) Hyperlipidemia Chronic E78.5 - HYPERLIPIDEMIA, UNSPECIFIED Present on Admission: Yes unspecified E78.5 - Hyperlipidemia, unspecified Comment: Continue home medications (3) DDD (degenerative disc disease), lumbosacral Chronic M51.37 - OTHER INTERVERTEBRAL DISC DEGENERATION, LUMBOSACRAL REGION Present on Admission: Yes Comment: Back pain under control (4) Hypertension Chronic I10 - ESSENTIAL (PRIMARY) HYPERTENSION Present on Admission: Yes essential hypertension I10 - Essential (primary) hypertension Comment: Continue medications (5) Emphysema lung Chronic J43.9 - EMPHYSEMA, UNSPECIFIED Present on Admission: Yes centrilobular J43.2 - Centrilobular emphysema (6) Acute respiratory failure with hypoxia and hypercarbia Acute J96.01 - ACUTE RESPIRATORY FAILURE WITH HYPOXIA; J96.02 - ACUTE RESPIRATORY FAILURE WITH HYPERCAPNIA Present on Admission: Yes Comment: Oxygenation is much better. However clinically no significant improvement. He is very reluctant to work with physical therapy or increase activity levels. Stressed the importance of building strength and endurance. Continue other current care Discharge Disposition: [facility] Care Facility Discharge Condition: Improved Cognitive Discharge Status: Unimpaired Fuctional Discharge Status: Walker Assistance Physician Follow up/Referrals: Mihai South MD [Primary Care Provider] - 08/29/16 2:00 pm New Prescriptions: Albuterol/Ipratropium Neb [Duoneb] 3 ml NEB Q6-8H PRN #120 nebu PRN Reason: Wheezing Alprazolam [Xanax] 0.5 mg PO BID PRN #30 tablet PRN Reason: Anxiety Fluconazole [Diflucan] 200 mg PO DAILY #4 tablet Nicotine [Nicoderm] 21 mg TOP Q24H #30 pat Oxycodone Immediate Release [Oxycodone Immediate Release (OxyIR)] 10 mg PO Q8H PRN #30 tablet PRN Reason: Pain Prednisone [Deltasone, Orasone] 20 mg PO DAILY #20 tablet Probiotic Blend [Katalina Q] 1 tab PO BIDLS #30 tablet Discharge Home Medication List Atorvastatin Calcium [Lipitor] 10 mg PO DAILY 01/23/13 [History Confirmed Last Taken 08/04/16] Lisinopril [Zestril] 20 mg PO DAILY 01/23/13 [History Confirmed 08/04/16 Last Taken 08/04/16] Cholecalciferol (Vitamin D3) [Vitamin D3] 1,000 units PO DAILY 07/07/14 [ History Confirmed 08/04/16 Last Taken 08/04/16] Tiotropium [Spiriva Handihaler] 18 mcg INH DAILY 07/23/14 [History Confirmed Last Taken 08/04/16] Montelukast Sodium [Singulair] 10 mg PO DAILY 06/16/16 [History Confirmed Last Taken 08/04/16] Albuterol/Ipratropium Neb [Duoneb] 3 ml NEB Q6-8H PRN #120 nebu 08/22/16 [Rx Last Taken Unknown] Alprazolam [Xanax] 0.5 mg PO BID PRN #30 tablet 08/22/16 [Rx Last Taken Unknown] Fluconazole [Diflucan] 200 mg PO DAILY #4 tablet 08/22/16 [Rx Last Taken Unknown ] Nicotine [Nicoderm] 21 mg TOP Q24H #30 pat 08/22/16 [Rx Last Taken Unknown] Oxycodone Immediate Release [Oxycodone Immediate Release (OxyIR)] 10 mg PO Q8H PRN #30 tablet 08/22/16 [Rx Last Taken Unknown] Prednisone [Deltasone, Orasone] 20 mg PO DAILY #20 tablet 08/22/16 [Rx Last Taken Unknown] Probiotic Blend [Katalina Q] 1 tab PO BIDLS #30 tablet 08/22/16 [Rx Last Taken Unknown] 08/22/16 05:20 08/22/16 05:20 Laboratory Results - last 24 hr 08/22/16 08/22/16 05:20 05:20 WBC 17.7 H RBC 4.09 L Hgb 12.2 L Hct 36.9 L MCV 90 MCH 29.9 MCHC 33.1 RDW 13.3 Plt Count 121 L MPV 9.4 Neut % (Auto) Cancelled Lymph % (Auto) Cancelled [place] % (Auto) Cancelled Eos % (Auto) Cancelled Baso % (Auto) Cancelled Absolute Neuts (auto) Cancelled Absolute Lymphs (auto) Cancelled Seg Neuts % (Manual) 86 H Band Neutrophils % 3 Lymphocytes % (Manual) 8 L Monocytes % (Manual) 3 Absolute Neutrophils 15.75 H Absolute Lymphocytes 1.42 Vacuolated Neuts Few Toxic Granulation Tr Platelet Estimate Dec RBC Morphology Reviewed this admiss Sodium 134 L Potassium 4.5 Chloride 90 L Carbon Dioxide 36 H Anion Gap 13 BUN 47 H Creatinine 0.50 L Estimated GFR (MDRD) > 60 Glucose 301 H Calculated Osmolality 281 Calcium 8.7 O2 Device: Nasal Cannula Diet at Discharge: As Tolerated Activity: As Tolerated Discontinue use of:: Alcohol, All Illegal Substances, All Types of Tobacco - DC Summary Notes Hospital Course Note:: Discharge summary on patient named ONEIDA BANDA SR admitted to [facility] on 08/04/16 by Jacquelin Ding MD. Date of discharge is []. Code: 73647 (>30min.) Wound Care Surgical Site: Yes Ability To Perform Care (if applicable): No - Physical Exam Vital Signs: Last Vital Signs Temp 97.9 F 08/22/16 06:00 Pulse 108 08/22/16 06:00 Resp 18 08/22/16 06:00 BP 132/98 08/22/16 06:00 Pulse Ox 95 08/22/16 08:00 Oxygen Pulse Oxygen Saturation 95 O2 Device Nasal Cannula Oxygen Flow Rate 1 Fraction of Inspired Oxygen ( FIO2) Constitutional: Alert, Distress (working to breath, rapid shallow breaths) Oriented to: Time, Person, Place - HEENT Head: Normal Eye: Normal. negative: Conjunctival Injection, Scleral Icterus Oropharynx: negative: Drooling ENT EAC: Normal (No oropharyngeal lesions or erythema. Mucous membranes are dry. ) TMJ: Normal Nose: No Symptoms Reported - Respiratory/Cardiovascular Respiratory: Diminished, Rhonchi, Wheezes. negative: Rales Cardiovascular: Normal (RRR , Normal S1, S2. No murmurs, rubs, or gallops. PMI non-displaced. Carotids: no carotid bruits. No bradycardia or tachycardia. DP pulses 2+ bilaterally.) - GI Auscultation: Normal (normal active sounds) Tenderness: Non tender Ernst's Sign: Negative - Musculoskeletal Back: Normal Extremities: Normal - Integumentary Skin: Normal (Warm dry no rashes) Lymphatics: Normal (No lymph node swelling or pain.). negative: Adenopathy - Neurologic Memory Impaired: Normal Motor Function: Abnormal (Generalize weakness able to ambulate in room) Cranial Nerve: Normal (CN II-XII intact sensation, strength 5/5) Cerebellar: Normal. negative: Ataxia, Past-Pointing, Tremor Mood Description: Normal Thought: Coherent Perception: Normal (Normal and appropriate affect.)
[2016-08-22] MEDS: LEVOFLOXACIN 750 MG TAB PO SCH (19:34)
== END 2016-08-22 20:35 | DRG 189 ==
LOC: ED 15:17 → MPS3 21:27
PROVIDERS: ADMIT Family Medicine; ATTEND Internal Medicine
PROC: 039B3ZZ Drainage of Right Radial Artery, Percutaneous Approach (ICD-10-PCS; principal; 2016-08-04)
DX: J96.01 Acute respiratory failure with hypoxia (principal); I74.8 Embolism and thrombosis of other arteries; J44.1 Chronic obstructive pulmonary disease with (acute) exacerbation; J44.0 Chronic obstructive pulmonary disease with (acute) lower respiratory infection; J96.02 Acute respiratory failure with hypercapnia; E78.5 Hyperlipidemia, unspecified; M51.37 Other intervertebral disc degeneration, lumbosacral region; I10 Essential (primary) hypertension; Z87.891 Personal history of nicotine dependence; E78.00 Pure hypercholesterolemia, unspecified; Z87.01 Personal history of pneumonia (recurrent); K21.9 Gastro-esophageal reflux disease without esophagitis; M19.90 Unspecified osteoarthritis, unspecified site; F41.9 Anxiety disorder, unspecified; Z23 Encounter for immunization
CPT/HCPCS: 36415; 36600; 71010; 71020; 71275; 80048; 80053; 81001; 82803; 82962; 83605; 83880; 84484; 85007; 85025; 85027; 85610; 85730; 87040; 87804; 90471; 90656; 93005; 94640; 96361; 96374; 97162; 98960; 99284; A9698; G0237; J0456; J0696; J1940; J1956; J2550; J2920; J2930; J3490; J7060; J7070; J7620